=== PATIENT | male | born 1950 | race Caucasian/White ===

== ENCOUNTER 2023-08-24 08:37 | Inpatient (IN) ==
--- NOTE | 2023-08-09 11:02 | Anesthesiology Consultation ---
Date of Service August 09, 2023 Assessment & Plan (1) Encounter for pre-operative examination: - Check coags AM DOS (Coumadin instructions per surgeon/prescriber) - Infectious disease screening: Per assessment on 08/09/23: No known infectious disease contacts or current infectious disease symptoms. No noted recent Covid positive test result. - S/P Insertion of spinal cord stimulator (12/06/22): Grade 2 view, MAC#4, ETT 7.5 at [facility] - Patient had [facility] ER evaluation 07/26/23- bleeding internal hemorrhoids (patient takes coumadin). Cecal region irregular thickening on imaging (recommend further evaluation to exclude mass lesion). PCP made aware of ER findings > referred to GI for colonoscopy/further evaluation. Patient scheduled for preop appt prior to surgery. Patient acceptable risk for surgery pending PCP preop evaluation (MARINA Combs, apt 08/10). Chart Review Chart Review: Patient NOT seen in Pre Admission Testing History Surgery Operation Date: 08/24/23 07:45 Proposed Procedures p L4-S1 Decompression and Fusion Spinal Cord Monitoring - Renny Dietz DO s Spinal Cord Stimulator Removal - Renny Dietz DO Height/Weight Height: 6 ft Weight: 74.843 kg Allergies Allergy/AdvReac Type Severity Reaction Status Date / Time niacin Allergy Severe Facial Verified 08/09/23 09:06 swelling Medications Home Medications Medication Instructions Recorded Confirmed Last Taken celecoxib 200 mg capsule (Celebrex) 200 mg PO QAM 10/21/19 08/09/23 12/01/22 07:00 multivitamin 1 tab PO QAM 10/21/19 08/09/23 12/01/22 07:00 warfarin 6 mg tablet 6 mg PO QAM 10/21/19 08/09/23 11/28/22 07:00 atorvastatin 80 mg tablet (Lipitor) 80 mg PO QAM 11/17/22 08/09/23 12/06/22 07:00 cyanocobalamin (vitamin B-12) 500 500 mcg PO QAM 11/17/22 08/09/23 12/01/22 07:00 mcg tablet (Vitamin B-12) levothyroxine 50 mcg tablet 50 mcg PO QAM 11/17/22 08/09/23 12/06/22 07:00 enoxaparin 80 mg/0.8 mL 70 mg subcut BID 12/06/22 08/09/23 12/05/22 08:00 subcutaneous syringe cholecalciferol (vitamin D3) 125 125 mcg PO QAM 08/09/23 08/09/23 Unknown mcg (5,000 unit) tablet (Vitamin D3) oxycodone 15 mg tablet 15 mg PO Q4H PRN Pain 08/09/23 08/09/23 Unknown Past Medical History Medical History Chronic back pain Deep vein thrombosis B/L LE post-op (2 years ago) Degenerative disc disease Hypothyroidism Internal hemorrhoids [facility] ER visit 07/26/23 Osteoarthritis PFO (patent foramen ovale) Taking coumadin Spinal cord stimulator status Patient was advised to bring remote Stroke Strokes x2 1982, approximately 20 years ago- with no significant current deficits Past Family History Family History Other No family history of adverse response to anesthesia Past Surgical History Surgical History Fusion of spine Lumbar History of carpal tunnel release Left History of cataract surgery R/L History of colonoscopy History of esophagogastroduodenoscopy (EGD) Hx of cervical spine surgery + hardware ("good ROM" per patient) Hx of hernia repair [facility] Hx of umbilical hernia repair Social History Smoking Status: Never smoker tobacco type: smokeless tobacco Do You Dip or Chew Tobacco: No Smoking End Date: stopped chewing tobacco 15 years ago Hx Alcohol Use: No Alcohol type: wine alcohol intake frequency: a few times a month Hx Substance Use: No substance use type: does not use Lab Results Anesthesia Preop Results Results Anesthesia Widget: WBC 7.45 K/ul (4.8-10.8) 08/07/23 Hgb 13.9 g/dl (14.0-18.0) L 08/07/23 Hct 42.2 % (42.0-52.0) 08/07/23 Plt 241 K/uL (130-400) 08/07/23 Na 139 mmol/L (136-145) 08/07/23 K 4.5 mmol/L (3.5-5.1) 08/07/23 Cl 103 mmol/L (98-107) 08/07/23 CO2 31 mmol/L (21-32) 08/07/23 BUN 21 mg/dl (6-23) 08/07/23 Creat 0.84 mg/dl (0.6-1.4) 08/07/23 Glucose Level 102 mg/dl (70-99(Fasting)) H 08/07/23 PT 23.2 Seconds (9.0-12.0) H 08/07/23 PTT 37 Seconds (21-31) H 08/07/23 INR 2.2 (0.9-1.1) H 08/07/23 Urine Color Dark Yellow 08/07/23 Urine Appearance Clear (Clear) 08/07/23 Urine pH 5.5 (4.5-7.5) 08/07/23 Urine Specific [place] 1.021 (1.000-1.030) 08/07/23 Urine Protein Negative (Negative) 08/07/23 Urine Glucose (UA) Negative (Negative) 08/07/23 Urine Ketones Trace (Negative) H 08/07/23 Urine Blood Negative (Negative) 08/07/23 Urine Nitrite Negative (Negative) 08/07/23 Urine Bilirubin Negative (Negative) 08/07/23 Urine Urobilinogen Negative (Negative) 08/07/23 Urine Leukocyte Esterase Negative (Negative) 08/07/23 Blood Type O Positive 08/07/23 Antibody Screen NEGATIVE 08/07/23 Testing Electrocardiogram Date: 08/07/23 NSR at 61bpm. "Normal ECG" Chest X-Ray Date: 08/07/23 FINDINGS: Spinal stimulator and ACDF are seen. The cardiomediastinal silhouette is normal. The lungs are clear. No evidence of pleural effusion or pneumothorax. IMPRESSION: No acute chest disease.
[2023-08-24] MEDS: LR 15ML/HR IV SCH (09:01)
[2023-08-24] MEDS: LR 60ML/HR IV SCH (09:19)
[2023-08-24] MEDS: CeleBREX 200 MG CAP PO SCH (09:19)
[2023-08-24] MEDS: ACETAMINOPHEN 500 MG TAB PO SCH (09:19)
[2023-08-24] MEDS: GABAPENTIN 300 MG CAP PO SCH (09:20)
[2023-08-24 09:48] LABS: Partial Thromboplastin Time 28 Seconds (21-31); Prothrombin Time 10.8 Seconds (9.0-12.0)
[2023-08-24] MEDS ORDERED: PROPOFOL IV EMULSION 10 MG/ML 20 ML VIAL IV ONE (09:59)
[2023-08-24] MEDS ORDERED: LIDOCAINE 2% 2 ML VIAL/AMP(20MG/ML) INFIL ONE (09:59)
[2023-08-24] MEDS ORDERED: DEXAMETHASONE SOD INJ 4 MG/ML VIAL ONE (09:59)
[2023-08-24] MEDS ORDERED: ONDANSETRON INJ 2 MG/ML 2 ML VIAL ONE (09:59)
[2023-08-24] MEDS ORDERED: MIDAZOLAM HCL 1 MG/ML 2ML VIAL ONE (09:59)
[2023-08-24] MEDS ORDERED: ROCURONIUM BROMIDE 10 MG/ML 5 ML VIAL IV ONE (09:59)
[2023-08-24] MEDS ORDERED: fentaNYL citrate PF 100 MCG/2 ML VIAL ONE (09:59)
--- NOTE | 2023-08-24 10:04 | History & Physical Bridge Note ---
Date of Service August 24, 2023 History & Physical Bridge Note I have examined the patient, reviewed the History & Physical and in the interval since the performance of the History & Physical I have noted the following changes of clinical significance: no changes noted
--- NOTE | 2023-08-24 10:05 | History & Physical Report ---
Date of Service August 24, 2023 Assessment & Plan (1) Neurogenic claudication due to lumbar spinal stenosis: Plan: L4-S1 decompression and fusion, spinal cord stimulator removal History of Present Illness Chief Complaint: Back and leg pain Primary Care Provider: Reinier Thomas MD This is a 72-year-old male presents with chronic persistent back and leg pain after failing course of nonoperative care is here for surgical invention. Allergies Allergy/AdvReac Type Severity Reaction Status Date / Time niacin Allergy Severe Facial Verified 08/24/23 09:01 swelling Home Medications Medication Instructions Recorded Confirmed Type celecoxib 200 mg capsule (Celebrex) 200 mg PO QAM 10/21/19 08/24/23 History multivitamin 1 tab PO QAM 10/21/19 08/24/23 History warfarin 6 mg tablet 6 mg PO QAM 10/21/19 08/24/23 History atorvastatin 80 mg tablet (Lipitor) 80 mg PO QAM 11/17/22 08/24/23 History cyanocobalamin (vitamin B-12) 500 500 mcg PO BID 11/17/22 08/24/23 History mcg tablet (Vitamin B-12) levothyroxine 50 mcg tablet 50 mcg PO QAM 11/17/22 08/24/23 History enoxaparin 80 mg/0.8 mL 70 mg subcut BID 12/06/22 08/24/23 History subcutaneous syringe cholecalciferol (vitamin D3) 125 125 mcg PO QAM 08/09/23 08/24/23 History mcg (5,000 unit) tablet (Vitamin D3) oxycodone 15 mg tablet 15 mg PO Q4H PRN Pain 08/09/23 08/24/23 History Past Med/Surg History Medical History Chronic back pain Deep vein thrombosis B/L LE post-op (2 years ago) Degenerative disc disease Hypothyroidism Internal hemorrhoids [facility] ER visit 07/26/23 Osteoarthritis PFO (patent foramen ovale) Taking coumadin Spinal cord stimulator status Patient was advised to bring remote Stroke Strokes x2 1982, approximately 20 years ago- with no significant current deficits Surgical History Fusion of spine Lumbar History of carpal tunnel release Left History of cataract surgery R/L History of colonoscopy History of esophagogastroduodenoscopy (EGD) Hx of cervical spine surgery + hardware ("good ROM" per patient) Hx of hernia repair [facility] Hx of umbilical hernia repair Family History Other No family history of adverse response to anesthesia Social History Smoking Status: Never smoker Tobacco Type: Smokeless Tobacco (Dip or Chew) Smoking End Date: stopped chewing tobacco 15 years ago; Second Hand Exposure: No; Do You Dip or Chew Tobacco: No; Tobacco Cessation Education Requested by Patient: No Hx Alcohol Use: No Hx Substance Use: No Preferred Language: Arabic 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
[2023-08-24] MEDS: ceFAZolin 2000MG 2,000 MG/15 ML SYR IV SCH ×2 (10:35→17:30)
[2023-08-24] MEDS ORDERED: ONDANSETRON INJ 2 MG/ML 2 ML VIAL IV PRN ×2 (11:00→15:27)
[2023-08-24] MEDS ORDERED: ePHEDrine sulfate 50 MG/ML AMP IV PRN (11:00)
[2023-08-24] MEDS ORDERED: PROMETHAZINE HCL 6.25 MG in SODIUM CHLORIDE 0.9% 50 ML IV PRN (11:00)
[2023-08-24] MEDS ORDERED: ATROPINE SULFATE 0.1 MG/ML 10ML SYR IV PRN (11:00)
[2023-08-24] MEDS: BUPIVACAINE/EPINEPHRINE 0.25% 1:200,000 30 ML VIAL ONE (11:05)
[2023-08-24] MEDS ORDERED: HYDROmorphone INJ 2 MG/ML SYR/VIAL ONE ×2 (11:43→12:14)
[2023-08-24] MEDS ORDERED: SUGAMMADEX SODIUM 200 MG/2 ML VIAL IV ONE (12:30)
[2023-08-24] MEDS: ceFAZolin 330 MG/ML 1 GM VIAL ONE (12:33)
[2023-08-24] MEDS: FLOSEAL HEMOSTATIC MATRIX 10ML TOP ONE (12:34)
[2023-08-24] MEDS ORDERED: SODIUM CHLORIDE 0.9% PF INJ 10 ML VIAL ONE (12:35)
--- NOTE | 2023-08-24 12:43 | Operative Report ---
Post Operative Report Pre & Post Diagnosis Operation Date: 08/24/23 09:55 Pre-Op Diagnosis: Lumbar spinal stenosis with neurogenic claudication Lumbar spondylolisthesis L4-5 Failed spinal cord stimulator Post-Op Diagnosis: Same I identified the patient and participated in the time-out.: Yes Procedure Operation Date: 08/24/23 09:55 Actual Procedures #1 revision decompression with bilateral medial facetectomies and foraminotomies L3-L4 L4-5. #2 posterior spinal fusion L4-5. #3 placement posterior instrumentation L4-5. #4 interbody fusion L4-L5. #5 placement of Spira 14 x 26 mm cage x 2 at L4-5. #6 removal of spinal cord stimulator leads and battery. #7 placement infuse collagen sponge, with Koros bone graft in the posterior lateral gutters and interbody space. Surgeon Renny Dietz, Surgical Supply Assistant Nano Yu Estimated Blood Loss 100 Findings Consistent with Post-Op Diagnosis Specimens None Indications This is a 72-year-old male presents above-mentioned diagnosis after failing course of nonoperative care is here for surgical invention. Description of Procedure Patient was met with identified informed consent obtained. Patient was then taken to the operative suite underwent patient placed in a prone position on the Felix table atop the Ash frame. All bony promises well-padded eyes inspected to ensure no external pressure placed upon them. This point the lumbar spine was prepped and draped in normal sterile fashion Sharp dissection with the assistance of Bovie cautery from down to and exposing the remaining lamina and transverse processes of L4-L5 bilaterally. I did explore the L5-S1 level and it was clearly fused with no evidence of motion. Then performed revision complete laminectomy of L4 including bilateral medial facetectomies and foraminotomies. There were bilateral facet cyst at this level that were also removed in her entirety. I also performed a partial laminectomy of L3 and bilateral medial facetectomies to address all lateral recess stenosis at this level as well. Pedicle screws were then placed at L4-5 bilaterally with assistance of fluoroscopy and appropriate sized giuseppe placed. By way the transforaminal approach on the right a discectomy of L4-L5 was performed endplates guided to subcortically bone and a 14 x 26 mm Spira cage filled with Koros bone graft tapped in position. Then proceeded to the left transforaminal region at L4-5 completed the discectomy endplates guided to subcortical bleeding bone and a second 14 x 26 mm Spira cage filled with Koros bone graft tapped in position. The rods then compressed locked into final position bilaterally. The transverse processes of L4-5 burred to subcortically bone. Infuse collagen sponge, with Koros was placed in the posterior lateral gutters. I then performed incision well at the L1-2 region down to the spinal cord stimulator anchors. They were released and removed without difficulty. I then opened the battery pocket along the right flank and remove the battery without difficulty. The incisions were then terence irrigated 15 round CARINE drain inserted at the L4-5 level and all incisions closed with subcutaneous Vicryl and 4 Monocryl for final closure. Steri-Strips sterile dressings placed. Patient waken taken to PACU stable condition. Please note spinal cord monitoring was utilized at the procedure no changes noted. Lastly Nano Yu was present at the entire surgery and while the patient positioning complex portion of the surgery and final skin closure. I attest to the content of the Intraoperative Record and any orders documented therein. Any exceptions are noted below.
[2023-08-24] MEDS: fentaNYL citrate PF 100 MCG/2 ML VIAL IV PRN (13:34)
[2023-08-24] MEDS ORDERED: HYDROmorphone INJ 0.5 MG/0.5 ML SYR IV PRN (14:17)
[2023-08-24] MEDS: HYDROmorphone INJ 2 MG/ML SYR/VIAL ONE (14:22)
--- NOTE | 2023-08-24 14:53 | Anesthesiology Progress Note ---
Date of Service August 24, 2023 Anesthesia Post Procedure Vital Signs Vital Signs: Temp Pulse Resp BP Pulse Ox O2 Del Method O2 Flow Rate 08/24/23 14:40 77 14 118/62 96 Room Air 3 08/24/23 14:30 75 16 125/77 95 Room Air 08/24/23 14:20 64 19 125/70 98 Room Air 3 08/24/23 14:10 67 18 145/72 H 98 Room Air 08/24/23 14:00 68 12 149/77 H 97 Room Air 08/24/23 13:50 63 14 134/70 95 Nasal Cannula 4 08/24/23 13:40 66 13 129/76 93 Room Air 08/24/23 13:30 79 14 134/65 96 Room Air 08/24/23 13:20 60 10 L 134/65 98 Room Air 08/24/23 13:10 63 12 143/75 H 98 Oxymask 6 08/24/23 13:00 36.0 C L 66 13 131/61 98 Oxymask 11 08/24/23 09:07 36.6 C 62 16 151/82 H 94 Room Air Pain Intensity Right Lower Buttock: Pain Intensity: 6 Transfer of Care Handoff Completed per policy Notes Mental Status: alert / awake / arousable Patient Amnestic to Procedure: Yes Nausea / Vomiting: adequately controlled Pain: adequately controlled Airway Patency, RR, SpO2: stable & adequate BP & HR: stable & adequate Hydration State: stable & adequate Anesthetic Complications: no major complications apparent
[2023-08-24] MEDS ORDERED: LORazepam 0.5 MG TAB PO PRN (15:27)
[2023-08-24] MEDS ORDERED: PROMETHAZINE HCL 12.5 MG in SODIUM CHLORIDE 0.9% 50 ML IV PRN (15:27)
[2023-08-24] MEDS ORDERED: LORazepam 0.5 MG in SYRINGE 0.25 ML IV PRN (15:27)
[2023-08-24] MEDS ORDERED: bisacodyL 10 MG SUPP PR PRN (15:27)
[2023-08-24] MEDS ORDERED: SOD PHOSPHATE/SOD BIPHOSPHATE ENEMA 132 ML BTL PR PRN (15:27)
[2023-08-24] MEDS ORDERED: DO NOT ADMINISTER FLU VACCINE PRN (15:27)
[2023-08-24] MEDS ORDERED: hydrOXYzine HCl 25 MG TAB PO PRN (15:27)
[2023-08-24] MEDS ORDERED: NALOXONE HCL 0.4 MG/1 ML VIAL/CARP IV PRN (15:27)
[2023-08-24] MEDS ORDERED: diphenhydrAMINE Capsule 25 MG CAP PO PRN (15:27)
[2023-08-24] MEDS ORDERED: ALUMINUM/MAGNESIUM SUSP 30 ML UDC PO PRN (15:27)
[2023-08-24] MEDS ORDERED: METOCLOPRAMIDE HCL INJ 5 MG/ML 2 ML VIAL IV PRN (15:27)
[2023-08-24] MEDS ORDERED: ACETAMINOPHEN 1,000 MG/100 ML VIAL IV PRN (15:27)
[2023-08-24] MEDS ORDERED: DO NOT ADMINISTER PNEUMOCOCCAL VACCINE PRN (15:27)
[2023-08-24] MEDS ORDERED: ONDANSETRON 4 MG OD TAB PO PRN (15:27)
[2023-08-24] MEDS: LACTATED RINGER'S 1,000 ML IV SCH (15:52)
[2023-08-24] MEDS: ACETAMINOPHEN 500 MG TAB PO PRN (15:55)
--- NOTE | 2023-08-24 16:39 | Fluoroscopy Report ---
FL lumbar spine 2-3V CLINICAL HISTORY: L4-S1 DECOMPRESSION AND FUSION TECHNIQUE: 2 views were obtained with the C-arm in the OR with the above procedure. Total fluoroscopy time was 21.2 seconds. Radiation dose was 14.20 mGy. Comparison: Comparison is made to CT abdomen pelvis 07/26/2023 FINDINGS/IMPRESSION: Intraoperative images were obtained of L4-S1 decompression and fusion. Please correlate with intraoperative fluoroscopy and operative report. ACT 112: Negative or not required by law. Electronically signed by: Jerson Hemphill M.D. 08/24/2023 4:38 PM
--- NOTE | 2023-08-24 17:10 | Anesthesiology Progress Note ---
Date of Service August 24, 2023 Anesthesia Post Procedure Vital Signs Vital Signs: Temp Pulse Resp BP Pulse Ox O2 Del Method O2 Flow Rate 08/24/23 17:01 36.6 C 84 16 111/61 92 Room Air 08/24/23 16:30 36.5 C 77 16 110/74 93 Room Air 08/24/23 15:57 36.3 C L 70 16 112/60 95 Nasal Cannula 2 08/24/23 15:23 Nasal Cannula 2 08/24/23 15:23 36.5 C 72 16 124/68 95 Room Air 2 08/24/23 14:50 67 14 126/72 96 Room Air 3 08/24/23 14:40 77 14 118/62 96 Room Air 3 08/24/23 14:30 75 16 125/77 95 Room Air 3 08/24/23 14:20 64 19 125/70 98 Room Air 3 08/24/23 14:10 67 18 145/72 H 98 Room Air 3 08/24/23 14:00 68 12 149/77 H 97 Room Air 3 08/24/23 13:50 63 14 134/70 95 Nasal Cannula 4 08/24/23 13:40 66 13 129/76 93 Room Air 08/24/23 13:30 79 14 134/65 96 Room Air 08/24/23 13:20 60 10 L 134/65 98 Room Air 08/24/23 13:10 63 12 143/75 H 98 Oxymask 6 08/24/23 13:00 36.0 C L 66 13 131/61 98 Oxymask 11 08/24/23 09:07 36.6 C 62 16 151/82 H 94 Room Air Pain Intensity Right Lower Buttock: Pain Intensity: 5 Back: Pain Intensity: 5 Transfer of Care Handoff Completed per policy Notes Mental Status: alert / awake / arousable and participated in evaluation Patient Amnestic to Procedure: Yes Nausea / Vomiting: adequately controlled Pain: adequately controlled Airway Patency, RR, SpO2: stable & adequate BP & HR: stable & adequate Hydration State: stable & adequate Anesthetic Complications: no major complications apparent and Pt Satisfied with anesthetic care
[2023-08-24] MEDS: HYDROmorphone INJ 0.5 MG/0.5 ML SYR IV PRN (17:26)
[2023-08-24] MEDS ORDERED: KETAMINE HCL INJ 50 MG/ML 10 ML VIAL ONE (17:29)
--- NOTE | 2023-08-24 19:26 | Hospitalist Consultation ---
Date of Consultation August 24, 2023 Assessment & Plan (1) Neurogenic claudication due to lumbar spinal stenosis: (2) Lumbar radiculopathy, chronic: S/P Lumbar decompression today Check CBC/BMP in AM Continue to hold off any anticoagulation for now Will follow up with Dr Dietz about when to resume. Pain control Defer activity to Primary Surgeon (3) History of CVA (cerebrovascular accident): (4) PFO (patent foramen ovale): Continue atorvastatin Warfarin on hold as above (5) Hypothyroidism: Continue levothyroxine I spent a total of 50 minutes coordinating, documenting and providing care for this patient excluding time spent in performance of separately billed services History of Present Illness Reason for Consultation: Post op medical management Requesting Physician: Dr Dietz Attending Physician: Renny Dietz, DO History of Present Illness 72 year old man with history of CVA x 2, has PFO on warfarin, s/p cervical spinal fusion, cervical discectomy, Hypothyroidism, lumbar spinal stenosis with neurogenic claudication who had lumbar decompression surgery by Dr Dietz today. Patient reports surgical site pain Had Low back radiculopathic pain radiating down the legs especially on the right prior to surgery Denied any nausea, vomiting Yet to pass flatus or have a BM Reports chronic mild abdominal pain, unchanged Denied any dysuria, freq, urgency Denied any cough though he stated he sometimes have cough with head movement due to spinal surgeries in the past Denied any other complaints on ROS Allergies Allergy/AdvReac Type Severity Reaction Status Date / Time niacin Allergy Severe Facial Verified 08/24/23 09:01 swelling Home Medications Medication Instructions Recorded Confirmed Type celecoxib 200 mg capsule (Celebrex) 200 mg PO QAM 10/21/19 08/24/23 History multivitamin 1 tab PO QAM 10/21/19 08/24/23 History warfarin 6 mg tablet 6 mg PO QAM 10/21/19 08/24/23 History atorvastatin 80 mg tablet (Lipitor) 80 mg PO QAM 11/17/22 08/24/23 History cyanocobalamin (vitamin B-12) 500 500 mcg PO BID 11/17/22 08/24/23 History mcg tablet (Vitamin B-12) levothyroxine 50 mcg tablet 50 mcg PO QAM 11/17/22 08/24/23 History enoxaparin 80 mg/0.8 mL 70 mg subcut BID 12/06/22 08/24/23 History subcutaneous syringe cholecalciferol (vitamin D3) 125 125 mcg PO QAM 08/09/23 08/24/23 History mcg (5,000 unit) tablet (Vitamin D3) oxycodone 15 mg tablet 15 mg PO Q4H PRN Pain 08/09/23 08/24/23 History Patient History Medical History (Updated 08/24/23 @ 19:25 by Susan Gomez MD) Internal hemorrhoids [facility] ER visit 07/26/23 Spinal cord stimulator status Patient was advised to bring remote PFO (patent foramen ovale) Taking coumadin Chronic back pain Degenerative disc disease Osteoarthritis Hypothyroidism Stroke Strokes x2 approximately 34 years ago- with no significant current deficits Deep vein thrombosis B/L LE post-op (2 years ago) Surgical History History of cataract surgery R/L History of carpal tunnel release Left Fusion of spine Lumbar Hx of umbilical hernia repair History of colonoscopy History of esophagogastroduodenoscopy (EGD) Hx of cervical spine surgery + hardware ("good ROM" per patient) Hx of hernia repair [facility] Family History Other No family history of adverse response to anesthesia Social History Smoking Status: Never smoker Tobacco Type: Smokeless Tobacco (Dip or Chew) Smoking End Date: stopped chewing tobacco 15 years ago; Second Hand Exposure: No; Do You Dip or Chew Tobacco: No; Tobacco Cessation Education Requested by Patient: No Hx Alcohol Use: No Hx Substance Use: No Preferred Language: German Communication Ability: Effective Clinical Resource Director Required: No Beliefs That Will Affect Care: None Current Living Situation: Spouse Other Information That Helps Us Care for You: No Feels Safe at Home: Yes Safety Concerns: Feels Safe At This Time Assistive Devices: None Physical Exam Constitutional: + well hydrated; no acute distress Eyes: PERRL, conjunctivae normal, anicteric sclerae ENMT: external ear and nose normal, oropharynx normal Respiratory: normal respiratory effort, lungs clear to auscultation Cardiovascular: Rate/Rhythm: regular rate and regular rhythm S1 S2 Gastrointestinal (Abdomen): normal bowel sounds, soft, nontender, no hepatosplenomegaly Musculoskeletal: Clean dressing over surgical site with drain in situ No pedal edema Neurologic: PERRL, EOMI, accommodation nl, no face palsy, no dysarthria Psychiatric: A+Ox3, euthymic affect Results & Data Results & Data Vital Signs (Past 12 Hours) Vital Signs Temp Pulse Resp BP Pulse Ox O2 Del Method O2 Flow Rate 08/24/23 17:30 36.6 C 84 18 110/48 L 91 Room Air 08/24/23 17:01 36.6 C 84 16 111/61 92 Room Air 08/24/23 16:30 36.5 C 77 16 110/74 93 Room Air 08/24/23 15:57 36.3 C L 70 16 112/60 95 Nasal Cannula 2 08/24/23 15:23 Nasal Cannula 2 08/24/23 15:23 36.5 C 72 16 124/68 95 Room Air 2 08/24/23 14:50 67 14 126/72 96 Room Air 3 08/24/23 14:40 77 14 118/62 96 Room Air 3 08/24/23 14:30 75 16 125/77 95 Room Air 3 08/24/23 14:20 64 19 125/70 98 Room Air 3 08/24/23 14:10 67 18 145/72 H 98 Room Air 3 08/24/23 14:00 68 12 149/77 H 97 Room Air 3 08/24/23 13:50 63 14 134/70 95 Nasal Cannula 4 08/24/23 13:40 66 13 129/76 93 Room Air 08/24/23 13:30 79 14 134/65 96 Room Air 08/24/23 13:20 60 10 L 134/65 98 Room Air 08/24/23 13:10 63 12 143/75 H 98 Oxymask 6 08/24/23 13:00 36.0 C L 66 13 131/61 98 Oxymask 11 08/24/23 09:07 36.6 C 62 16 151/82 H 94 Room Air
[2023-08-24] MEDS: oxyCODONE HCL IR 5 MG TAB (IMMEDIATE RELEASE) PO PRN (20:09)
[2023-08-24] MEDS: CYANOCOBALAMIN (B-12) 500 MCG TABLET PO SCH (20:10)
[2023-08-24] MEDS: DOCUSATE SODIUM/SENNA 50/8.6MG TAB PO SCH (20:10)
--- OUTSIDE RECORDS SUMMARY | 2023-08-24 22:20 | External Medical Summary | Summary of Care ---
Author Name Unknown Organization [facility] Address [address] [place] [address] Phone [phone] Care Team Providers Care Services Program Manager Name Role Phone Reinier Thomas DO Primary Care Provid er Reason for Visit * Reason Onset Date Comments Other 08/17/2023 Enoxaparin Sodiu m 80 MG/0.8ML Injection Solution Prefilled Syringe (Lovenox) FYI 08/17/2023 Encounter Details Date Type Department Care Team ([facility] st Contact Info) Description 08/17/2023 Telephone Family [address] [phone] Reinier Thomas DO [address] [place] [id number] Other (Enoxaparin Sodium 80 MG/0.8ML Injec... Allergies Active Allergy Reactions Criticality Noted Date Comments Niacin 07/07/2005 documented as of this encounter (statuses as of 08/22/2023) Medications Medication Sig Dispensed Refills Start Date End Date Status acetaminophen (TYLENOL) 325 MG Tablet Take 2 Tabs by mouth every 4 hours as needed for Pain. 60 Tab 0 9 Active Multivitamin Adult Oral Tablet Take 1 Tab by mouth daily. 0 0 Active Vitamin C 500 MG Oral Tablet (Ascorbic Acid) Take 1 Tablet by mouth in the morning. 0 Active Black Elderberry(Contreras-F lower) 575 MG Oral Capsule Take by mouth 1 Tablet daily . 0 Active Warfarin Sodium 6 MG Oral Tablet (Coumadin) TAKE ONE TABLET BY MOUTH EVERY MORNING OR DIRECTED BY THE ANTICOAG CLINIC. 90 Tablet 2 3 Active oxyCODONE HCl 15 MG Oral Tablet (Roxicodone)Indica tions:Spinal stenosis of lumbar region with neurogenic claudication,Chron ic pain syndrome,Osteoarth ritis of spine with radiculopathy, lumbar region Take 1 Tablet by mouth every 4 hours as needed for Pain, Moderate or Pain, Severe. 180 Tablet 0 4 Active Celecoxib 200 MG Oral Capsule (CeleBREX)Indicati ons:Generalized osteoarthritis TAKE 1 CAPSULE BY MOUTH EVERY DAY 90 Capsule 1 4 Active Atorvastatin Calcium 80 MG Oral Tablet (Lipitor)Indicatio ns:History of CVA (cerebrovascular accident),Dyslipid emia, goal LDL below 70 TAKE 1 TABLET BY MOUTH EVERY DAY IN THE MORNING 90 Tablet 1 4 Active Levothyroxine Sodium 50 MCG Oral Tablet (Levoxyl)Indicatio ns:Acquired hypothyroidism TAKE 1 TABLET BY MOUTH IN THE MORNING 30 MINUTES BEFORE BREAKFAST OR OTHER MEDICATIONS 90 Tablet 1 4 Active Enoxaparin Sodium 80 MG/0.8ML Injection Solution Prefilled Syringe (Lovenox)Indicatio ns:Cerebrovascular disease, arteriosclerotic, post-stroke,PFO (patent foramen ovale) Inject full contents of one syringe every 12 hours as instructed by anticoagulation clinic 8 mL 0 4 Active Enoxaparin Sodium 80 MG/0.8ML Injection Solution Prefilled Syringe (Lovenox)Indicatio ns:Cerebrovascular disease, arteriosclerotic, post-stroke,PFO (patent foramen ovale) Inject full contents of one syringe ever 12 hours as instructed by anticoagulation clinic 8 mL 0 4 08/17/19 24 Discontinu ed(Refill) documented as of this encounter (statuses as of 08/22/2023) Active Problems Problem Noted Date Diagnosed Date Osteoarthritis of spine with radiculopathy, lumb ar region 07/12/2022 Acquired hypothyroidism 10/30/2020 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 BPH without obstruction/lower urinary tract symp toms 07/21/2003 GENERAL OSTEOARTHROSIS 04/19/2001 COMMON MIGRAINE WITHOUT MENTION OF INTRACTABLE M IGRAINE 01/25/2001 documented as of this encounter (statuses as of 08/22/2023) Resolved Problems Problem Noted Date Diagnosed Date Resolved Date History of CVA (cerebrovascular accident) 03/19/2018 03/29/2021 Prediabetes 06/27/2017 07/31/2017 Overview: Per Prediabetes protocol #1 Dyslipidemia, goal LDL below 100 06/02/2010 12/19/2019 skilled nursing current use of ant icoagulant therapy 11/28/2004 03/29/2021 Overview: ICD-10 update of inactive term Anticoagulation management encounter 11/09/2001 04/09/2018 Dyslipidemia, goal to be determined 01/25/2001 06/04/2009 Special screening for malign ant neoplasms, colon 01/25/2001 07/23/2008 Overview: Resolved per Screening Diagnosis Protocol #6 CVA 01/25/2001 08/28/2008 Overview: Modified per CVA protocol #8 Hemorrhagic disorder due to intrinsic circulating anticoagulants 09/05/2000 10/06/2011 Overview: ICD-10 update of inactive term documented as of this encounter (statuses as of 08/22/2023) Immunizations Name Administration Dates Next Due COVID-19 mRNA, LNP-s, No Pre serve, 2-Dose Series (Moderna) 07/23/2020,06/24/2020 Influenza, Whole Virus 03/02/1999,1997,02/19/1997,02/26 Pneumococcal Conjugate Vacc, 13 Valent (Prevnar) 11/18/2015 Pneumococcal Polysaccharide PPV23 (Pneumovax) 10/30/2017,03/08/2005,02/27/1996 Seasonal Influenza, PF, 6 M & above, IM , (FluLaval or Fluzone) 03/14/2018,03/17/2017 Seasonal Influenza, Quadriva lent, No Preserve, IM 03/16/2016,03/12/2015 Seasonal Influenza, Split, I IV3, With Preserve, Inj 02/06/2014,02/26/2013,02/02/2012,02/15,09/30/2010(Deferred: Patient Refused),02/03/2010,02/04/2009, 008,02/22/2007,03/09/2006,03/08/2005,1 ,02/18/2003,04/19/2001 Seasonal Influenza, Trivalen t, Adjuvanted, 65+ yrs 02/20/2019 TD - Tetanus/Diptheria (ADULT) 02/08/2005 TDAP (age 11 and older)(Adacel) 06/07/2011 documented as of this encounter Social History Tobacco Use Types Packs/Day Years Used Date Smoking Tobacco: Never Smokeless Tobacco: Former Chew Comments:chewed for 25 years Alcohol Use Standard Drinks/Week Comments No 0 (1 standard drink = 0.6 oz pur e alcohol) PHQ-2 Answer Date Recorded PHQ Adult Total Score 0 01/11/2023 Hunger Vital Sign Answer Date Recorded Within the past 12 months, y ou worried that your food would run out before you got the money to buy more. Never true 06/30/19 21 Within the past 12 months, t he food you bought just didn't last and you didn't have money to get more. Never true 06/30/2020 Sex and Gender Information Value Date Recorded Sex Assigned at Male 08/14/2018 11:15 AM EDT Gender Identity Male 08/14/2018 11:15 AM EDT Sexual Orientation Straight 08/14/2018 11 :15 AM EDT Job Start Date Occupation Industry Not on file Not on file Not on file documented as of this encounter Functional Status Functional Status Response Date of Assess ment Are you deaf or do you have serious difficulty h earing? No 03/19/2018 Are you blind or do you have serious difficulty seeing, even when wearing glasses? No 03/19/2018 Do you have serious difficul ty walking or climbing stairs? (5 years old or older) No 03/19/2018 Do you have difficulty dress ing or bathing? (5 years old or older) No 03/19/2018 Because of a physical, menta l, or emotional condition, do you have difficulty doing errands alone such as visiting a doctor s office or shopping? (15 years old or older) No 03/19/20 18 Cognitive Status Response Date of Assessm ent Because of a physical, menta l, or emotional condition, do you have serious difficulty concentrating, remembering, or making decisions? (5 years old or older) No 03/19/2018 documented as of this encounter Miscellaneous Notes * Telephone Encounter - Mona Melendez RPh - 08/22/2023 7:56 AM EDT Returned call to patient's daughter and advised that only 10 shots are needed. Disregard second script for lovenox. Mona Melendez, James, BCACP Clinical Pharmacist Medication Therapy Disease Management 08/22/2023, 7:58 AM * Telephone Encounter - Padma Thompson PHARM Tech - 08/21/2023 5:05 PM EDT Daughter calling for clarification as pt is calling him frantic in regards to another prescription for the lovenox and another $100 co pay. He picked up the prescription on 08/17/23 and paid the $100 dollars. Pharmacy has that it was never picked up. He then got another notification 08/11/23 that rx was picked up. Pt has 10 pens already, Aurea asking if he is needing the additional 10 pens that were sent on 08/17/23 Please advise. Thank You, Padma Thompson [facility] Optics Manufacturing Technician III Centralized Clinical Pharmacy Services (CCPS) (Formerly Telepharmacy) 08/21/2023, 5:15 PM * Telephone Encounter - Lisa Gillespie OSA - 08/21/2023 4:58 PM EDT Daughter following up on script instructions, [facility] also says they have two scripts (one with one hundred dollar co-pay) and is seeking clarification. Connected to pharmacy team. Call back #[phone] * Telephone Encounter - Mona Melendez [facility] - 08/18/2023 1:38 PM EDT Messaged [facility] Pharmacist TEAMs Chat. Was informed that patient had a paid claim on the lovenox and it was picked up a few days ago. Discovered that it was the patient that tried to verbally submit a tiering exception, which got denied due to patient not trying/failing heparin. Patient Phone Numbers Spoke to patient and discussed. Copay is $100, which is not ideal, but unavoidable. No further actions necessary at this time. Mona Melendez, PharmD, BCACP Clinical Pharmacist Medication Therapy Disease Management 08/18/2023, 1:40 PM * Telephone Encounter - Marci Oshea [facility] - 08/18/2023 12:25 PM EDT Patients insurance would like to inform the office that Enoxaparin is denied because: Do not see medical record documentation of failure on or intolerance to at least one (1) additionalpreferred formulary alternative (at least one from Tier 2), one of which must be from the same pharmacologic class if applicable OR Do not see medical record documentation that the preferred formulary alternatives for the treatmentof the member's condition would have adverse effects AND Your request for a tiering exception has been denied. The requested medication will continue to be covered for the enrollee at the tier listed in the formulary. Patient : 1.heparin sodium (porcine) (1000 unit/ml solution, 5000 unit/ml solution, 23321 unit/ml solution, 62507 unit/ml solution) They will fax this info to the office, please review and resubmit if appropriate. Thank you, Marci Oshea [facility] Incinerator Plant Supervisor Vp Respiratory Centralized Clinical Pharmacy Services (CCPS) (Formerly Telepharmacy) 08/18/2023,12:25 PM * Telephone Encounter - Dianna Pereyra CPhT - 08/18/2023 9:43 AM EDT Patients insurance would like to inform the office that Enoxaprin is denied because needs to try one formulary alternative. They will fax this info to the office, please review and resubmit if appropriate. Thank you, Dianna Pereyra CPhT Optics Manufacturing Technician Centralized Clinical Pharmacy Services (CCPS)(formerly telepharmacy) 08/18/2023,9:43 AM * Telephone Encounter - Mona Melendez [facility] - 08/18/2023 8:09 AM EDT Returned call to Christophe. Discussed the need for lovenox bridge, and that patient is otherwise successfully anticoagulated onwarfarin, but needs to hold it for 5 days for his upcoming procedure. Discussed his high clot risk,and that the lovenox bridge is necessary for him. Informed Christophe that she may [employer] TEAMS me during the day today if that is easier to communicate, as I do not have a direct line. Mona Melendez, PharmYfn, BCACP Clinical Pharmacist Medication Therapy Disease Management 08/18/2023, 8:10 AM * Telephone Encounter - Padma Thompson PHARM Tech - 08/17/2023 5:06 PM EDT Christophe calling as her [facility] have even more questions regarding the prior auth on the lovenox. Do not see medical record documentation of failure on or intolerance to at least two preferred formulary alternatives (at least one from Tier 2), one of which must be from the same pharmacologic class if applicable OR Do not see medical record documentation that the preferred formulary alternatives for the treatmentof the member's condition would have adverse effects AND Your request for a tiering exception has been denied. The requested medication will continue to be covered for the enrollee at the tier listed in the formulary. Formulary Alternatives: heparin sodium (porcine) (1000 unit/ml solution, 5000 unit/ml solution, 25252 unit/ml solution, 10203 unit/ml solution), warfarin or jantoven tablet Please call Christophe [phone], as it is needed back by 9:30 oon 08/18/23 Thank You, Padma Thompson [facility] Optics Manufacturing Technician III Centralized Clinical Pharmacy Services (CCPS) (Formerly Telepharmacy) 08/17/2023, 5:07 PM * Telephone Encounter - Mona Melendez [facility] - 08/17/2023 4:11 PM EDT Returned call to Christophe and reviewed that it should be for the generic lovenox (enoxaparin). Mona Melendez, PharmD, [facility] Clinical Pharmacist Medication Therapy Disease Management 08/17/2023, 4:12 PM * Telephone Encounter - Emelina Rankin patient registration specialist - 08/17/2023 4:00 PM EDT Christophe calling from [facility]. They need clarification on if Enoxaparin Sodium 80 MG/0.8ML Injection Solution Prefilled Syringe (Lovenox) is brand preferred or if it's to be generic. Please return her call at [phone]. EOC#: [id number] Thank you, Emelina Rankin, Incinerator Plant Supervisor Centralized Clinical Pharmacy Services (CCPS) (Formerly Telepharmacy) 08/17/2023,4:03 PM * Telephone Encounter - Mona Melendez RPh - 08/17/2023 2:33 PM EDT Returned call and spoke to [place] to further discuss. Patient's dose should be 80 mg (weight based dosing of 1mg/kg). Discussed that it is for a lovenox bridge and patient is to only receive 10 syringes. Mona Melendez, PharmD, BCACP Clinical Pharmacist Medication Therapy Disease Management 08/17/2023, 2:47 PM * Telephone Encounter - Marce Blake patient registration specialist - 08/17/2023 1:57 PM EDT [place] from [facility] calling to advise Verbal info given states Lovenox 70mg, but this med only comes in40,60 and 80mg syringes. Please advise of correct dosing by calling [facility] at [phone] Thanks, Marce Blake Optics Manufacturing Technician III Centralized Clinical Pharmacy Services (CCPS) 08/17/2023,1:57 PM * Telephone Encounter - Gaviota Ortega CPhT - 08/17/2023 1:30 PM EDT [facility] calling in with medication questions regarding Enoxaparin Sodium 80 MG/0.8ML Injection SolutionPrefilled Syringe (Lovenox). Pt is being seen by [facility]. Transferred [facility] . Thank you, Gaviota Ortega Incinerator Plant Supervisor nataliia Telepharmacy 08/17/2023, 1:31 PM documented in this encounter Plan of Treatment Upcoming Encounters Date Type Department Care Team (Late st Contact Info) Description 09/07/2023 9:50 AM EDT Anticoagulation Pharmacy, [place] [address] [place] [address] [place] [address] [place] [address] 10/18/2023 1:40 PM EDT Office Visit Family Practice [facility] [address] [place] [phone] Reinier Thomas DO [address] [place] [address] 11/15/2023 10:30 AM EDT Office Visit Orthopaedics, [facility] [address] [place] [address] Alexei Naylor PA-C [address] [place] [address] 12/12/2023 1:40 PM EDT Office Visit Dermatology [facility] [address] [place] [phone] Osmin Byrd PA-C [address], [place] [phone] Health Maintenance Due Date Last Done Comments Cologuard 1993 Fecal Occult Blood Test 1993 Sigmoidoscopy 1993 Zoster Vaccines (1 of 2) 1998 DTaP,Tdap,and Td Vaccines (2 - Td or Tdap) 06/07/2021 06/07/2011, 02/08/2005 Colonoscopy 11/03/2021 11/04/2011, 10/14, 02/20/2006 Colorectal Cancer Screening 11/03/2021 COVID-19 Vaccine ( - season) 2023 07/23/2020, 06/24/2020 Depression Screening 01/12/2024 01/11/2023 TSH 01/13/2024 01/12/2023, 06/16, 03/29/2021, Additional history exists Influenza Vaccine (FLU shot) (Season Ended) 2024 02/20/2019, 03/14/2018, 03/17/2017, Additional history exists Pneumococcal Vaccine: 65+ Years Completed 10/30/2017, 11/18/2015, 03/08/2005, Additional history exists GARDASIL-HPV IMMUNIZATION SERIES Aged Out No longer eligible based on patient's age to complete this topic Hepatitis B Aged Out No longer eligi ble based on patient's age to complete this topic MENINGOCOCCAL (MENACTRA/MENVEO) Aged Out No longer eligible based on patient's age to complete this topic documented as of this encounter Medical Devices Implanted Type Area Aircraft Stress Analyst Device Identifier Shelf Expiration Date Model / Serial / Lot Graft Cervical 6x8 [id number] - [id number] - [id number] Implanted:Qt y: 1 on 03/19/2018 by Ubaldo Johnson MD at [place] [facility] Tissue - Human N/A: Spine Cervical L[employer]ET 08/01/2022 [id number] / [id number] / [id number] Graft Cervical 6x8 [id number] - [id number] - [id number] Implanted:Qt y: 1 on 03/19/2018 by Ubaldo Johnson MD at OR [facility] Tissue - Human N/A: Spine Cervical LIFENET 04/19/2022 [id number] / [id number] / [id number] Plate Cerv 2 Lev 34mm Std - [id number] Implanted:Qt y: 1 on 03/19/2018 by Ubaldo Johnson MD at OR [facility] N/A: Spine Cervical [employer] [id number] / / Description:from set Screw St Efrain Slf Drl 4.0x14mm - [id number] Implanted:Qt y: 3 on 03/19/2018 by Ubaldo Johnson MD at OR [facility] N/A: Spine Cervical [employer] [id number] / / Description:from set Screw St Efrain Slf Drl 4.0x16mm - [id number] Implanted:Qt y: 3 on 03/19/2018 by Ubaldo Johnson MD at OR [facility] N/A: Spine Cervical [employer] [id number] / / Description:from set Mesh Perfix Plug Lg [id number] - [id number] Implanted:Qt y: 1 on 02/15/2019 by Josué Kelley MD at OR [facility] N/A: Naz CAMACHO BARD : DAVOL [id number] 03/11/2023 [id number] / / [id number] Lead Kit Trial [id number] 50cm - [id number] - [id number] Implanted:Qt y: 1 on 11/02/2022 by Franklin Olmos DO at OR [facility] N/A: Back Bioaxial : PAIN MGMT 08/05/2024 [id number] / [id number] / [id number] documented as of this encounter Visit Diagnoses Diagnosis CEREBROVASCULAR DZ, POST-STROKE Cerebral atherosclerosis PFO (patent foramen ovale) Ostium secundum type atrial septal defect documented in this encounter Advance Directives Latest Code Status on File Code Status Date Activated Date Inactivated Comments Full Code 02/15/2019 8:49 AM 02/15/2019 6:39 PM Question Answer Comments Discussion of Advance Direct michelle occurred with: Not Discussed Code Status History Code Status Date Activated Date Inactivated Comments Full Code 03/19/2018 8:19 AM 03/20/2018 6:03 PM Question Answer Comments Discussion of Advance Direct michelle occurred with: Not Discussed Care Teams Services Program Manager Relationship Specialty Start Date End Date Reinier Thomas DO [address] [place] [id number] PCP - General Internal Medicine 03/17/21 documented as of this encounter
--- OUTSIDE RECORDS SUMMARY | 2023-08-24 22:20 | External Medical Summary | Summary of Care ---
Author Name Unknown Organization [facility] Address [address] [place] [address] Phone [phone] Care Team Providers Care Aircraft Structural Design Engineer Name Role Phone Reinier Thomas DO Primary Care Provid er Reason for Visit * Reason Onset Date Comments Other 08/17/2023 Enoxaparin Sodiu m 80 MG/0.8ML Injection Solution Prefilled Syringe (Lovenox) FYI 08/17/2023 Encounter Details Date Type Department Care Team ([facility] st Contact Info) Description 08/17/2023 Telephone Family [address] [address] Reinier Thomas DO [address] [place] [address] Other (Enoxaparin Sodium 80 MG/0.8ML Injec... Allergies Active Allergy Reactions Criticality Noted Date Comments Niacin 07/07/2005 documented as of this encounter (statuses as of 08/21/2023) Medications Medication Sig Dispensed Refills Start Date [...] as of this encounter (statuses as of 08/21/2023) Active Problems Problem Noted Date Diagnosed Date [...] as of this encounter (statuses as of 08/21/2023) Resolved Problems Problem Noted Date Diagnosed Date Resolved Date History of CVA (cerebrovascular accident) 03/19/2018 03/29/2021 Prediabetes 06/27/2017 07/31/2017 Overview: Per Prediabetes protocol #1 Dyslipidemia, goal LDL below 100 06/02/2010 12/19/2019 nursing home current use of ant icoagulant therapy 11/28/2004 [...] as of this encounter (statuses as of 08/21/2023) Immunizations Name Administration Dates Next Due COVID-19 [...] encounter Miscellaneous Notes * Telephone Encounter - Padma Thompson PHARM [...] 08/17/23 Please advise. Thank You, Padma Thompson [facility] Supervisor [employer] III Centralized Clinical Pharmacy Services (CCPS) (Formerly Telepharmacy) 08/21/2023, 5:15 PM * Telephone Encounter - Lisa Gillespie OSA - 08/21/2023 4:58 PM EDT Daughter following up on script instructions, [facility] also says they have two scripts (one with one hundred dollar co-pay) and is seeking clarification. Connected to pharmacy team. Call back #[phone] * Telephone Encounter - Mona Melendez RP - 08/18/2023 1:38 PM EDT Messaged [facility] Pharmacist TEAMs Chat. Was informed that patient [...] necessary at this time. Mona Melendez, PharmD, [facility] Clinical Pharmacist Medication Therapy Disease Management 08/18/2023, 1:40 PM * Telephone Encounter - Marci Oshea CPhT - 08/18/2023 12:25 PM EDT Patients insurance [...] (porcine) (1000 unit/ml solution, 5000 unit/ml solution, 36785 unit/ml solution, 81975 unit/ml solution) They will fax this info to the office, please review and resubmit if appropriate. Thank you, Marci Oshea CPhT Reo Asset Manager Ct Mri Technologist Centralized Clinical Pharmacy Services (CCPS) (Formerly Telepharmacy) 08/18/2023,12:25 PM * Telephone Encounter - Dianna Pereyra CPhT - 08/18/2023 9:43 AM EDT Patients insurance would like to inform the office that Enoxaprin is denied because needs to try one formulary alternative. They will fax this info to the office, please review and resubmit if appropriate. Thank you, Dianna Pereyra CPhT Supervisor [employer] Centralized Clinical Pharmacy Services (CCPS)(formerly telepharmacy) 08/18/2023,9:43 AM * Telephone Encounter - Mona Melendez RP - 08/18/2023 8:09 AM EDT Returned call [...] not have a direct line. Mona Melendez, James, BCACP Clinical Pharmacist Medication Therapy Disease Management 08/18/2023, 8:10 AM * Telephone Encounter - Padma Thompson PHARM Tech - 08/17/2023 5:06 PM EDT Christophe calling as her [facility] have even more questions regarding the prior [...] (porcine) (1000 unit/ml solution, 5000 unit/ml solution, 05038 unit/ml solution, 79055 unit/ml solution), warfarin or jantoven tablet Please call Christophe [phone], as it is needed back by 9:30 oon 08/18/23 Thank You, Padma Thompson [facility] Supervisor [employer] III [facility] Pharm[facility] 08/17/2023, 5:07 PM * Telephone Encounter - Mona Melendez [facility] - 08/17/2023 4:11 PM EDT Returned call to Christophe and reviewed that it should be for the generic lovenox (enoxaparin). Mona Melendez PharmD, [facility] Clinical Pharmacist Medication Therapy Disease Management 08/17/2023, 4:12 PM * Telephone Encounter - Emelina Rankin PHARM Tech - 08/17/2023 4:00 PM EDT Christophe calling from [facility]. They need clarification on if Enoxaparin Sodium 80 MG/0.8ML Injection Solution Prefilled Syringe (Lovenox) is brand preferred or if it's to be generic. Please return her call at [phone]. EOC#: [id number] Thank you, Emelina Rankin, Reo Asset Manager [facility] 08/17/2023,4:03 PM * Telephone Encounter - Mona Melendez RP - 08/17/2023 2:33 PM EDT Returned call and spoke to [place] to further discuss. Patient's dose should be 80 mg (weight based dosing of 1mg/kg). Discussed that it is for a lovenox bridge and patient is to only receive 10 syringes. Mona Melendez, PharmD, BCACP Clinical Pharmacist Medication Therapy Disease Management 08/17/2023, 2:47 PM * Telephone Encounter - Marce Blake PHARM Tech - 08/17/2023 1:57 PM EDT [place] from [facility] calling to advise Verbal info given states Lovenox 70mg, but this med only comes in40,60 and 80mg syringes. Please advise of correct dosing by calling [facility] at [phone] Thanks, Marce Blake Supervisor [employer] Centralized Clinical Pharmacy Services (CCPS) 08/17/2023,1:57 PM * Telephone Encounter - Gaviota Ortega CPhT - 08/17/2023 1:30 PM EDT [facility] calling in with medication questions regarding Enoxaparin Sodium 80 MG/0.8ML Injection SolutionPrefilled Syringe (Lovenox). Pt is being seen by [facility] Clinic. Transferred [facility] . Thank you, Gaviota Ortega Reo Asset Manager [facility] 08/17/2023, 1:31 PM documented in this encounter Plan of Treatment Upcoming Encounters Date Type Department Care Team (Late st Contact Info) Description 09/07/2023 9:50 AM EDT Anticoagulation Pharmacy, [place] [address] [facility] [place] [address] [place] [facility] [address] [place] [address] 10/18/2023 1:40 PM EDT Office Visit [address] [address] Reinier Thomas, [address] [place] [address] 11/15/2023 10:30 AM EDT Office Visit Orthopaedics, [facility] [address] [place] [address] Alexei Naylor PA-C [address] [place], [place] [phone] 12/12/2023 1:40 PM EDT Office Visit Dermatology [facility] [address] [place] [phone] Osmin Byrd PA-C [address] [place], [place] [phone] Health Maintenance Due Date Last Done Comments Cologuard 1993 Fecal Occult Blood Test 1993 Sigmoidoscopy 1993 Zoster Vaccines (1 of 2) 1998 DTaP,Tdap,and Td Vaccines (2 - Td or Tdap) 06/07/2021 06/07/2011, 02/08/2005 Colonoscopy 11/03/2021 11/04/2011, 10/14, 02/20/2006 Colorectal Cancer Screening 11/03/2021 COVID-19 Vaccine ( season) 2023 07/23/2020, 06/24/2020 Depression Screening 01/12/2024 [...] this encounter Medical Devices Implanted Type Area Orthopedic Specialist Device Identifier Shelf Expiration Date Model / Serial / Lot Graft Cervical 6x8 [id number] - [id number] - [id number] Implanted:Qt y: 1 on 03/19/2018 by Ubaldo Johnson MD at OR [facility] Tissue - Human N/A: Spine Cervical L[employer]ET 08/01/2022 [id number] / [id number] / [id number] Graft Cervical 6x8 [id number] - [id number] - [id number] Implanted:Qt y: 1 on 03/19/2018 by Ubaldo Johnson MD at OR [facility] Tissue - Human N/A: Spine Cervical LIFENET 04/19/2022 [id number] / [id number] / [id number] Plate Cerv 2 Lev 34mm Std - [id number] Implanted:Qt y: 1 on 03/19/2018 by Ubaldo Johnson MD at OR [facility] N/A: Spine Cervical [employer] [id number] / / Description:from set Screw St Efrain Slf Drl 4.0x14mm - [id number] Implanted:Qt y: 3 on 03/19/2018 by Ubaldo Johnson MD at OR [facility] N/A: Spine Cervical [employer] [id number] / / Description:from set Screw St Efrain Slf Drl 4.0x16mm - [id number] Implanted:Qt y: 3 on 03/19/2018 by Ubaldo Johnson MD at OR [facility] N/A: Spine Cervical [employer] [id number] / / Description:from set Mesh Perfix Plug Lg [id number] - [id number] Implanted:Qt y: 1 on 02/15/2019 by Josué Kelley MD at OR [facility] N/A: Naz CAMACHO BARD : LUZ MARINA [id number] 03/11/2023 [id number] / / [id number] Lead Kit Trial [id number] 50cm - [id number] - [id number] Implanted:Qt y: 1 on 11/02/2022 by Franklin Olmos DO at OR [facility] N/A: Back [facility] : PAIN MGMT 08/05/2024 [id number] / [id number] / [id number] documented as of this encounter Visit Diagnoses [...] michelle occurred with: Not Discussed Care Teams Aircraft Structural Design Engineer Relationship Specialty Start Date End Date Reinier Thomas DO [address] [place] [address] PCP - General Internal Medicine 03/17/21 documented as of this encounter
--- OUTSIDE RECORDS SUMMARY | 2023-08-24 22:21 | External Medical Summary | Summary of Care ---
Author Name Unknown Organization [facility] Address [address] [place] [address] Phone [phone] Care Team Providers Care Hand Funnel Coater Name Role Phone Reinier Thomas DO Primary Care Provid er Reason for Visit * Reason Onset Date Comments Other 08/17/2023 Enoxaparin Sodiu m 80 MG/0.8ML Injection Solution Prefilled Syringe (Lovenox) Encounter Details Date Type Department Care Team ([facility] st Contact Info) Description 08/17/[address] [address] Reinier Thomas DO [address] [place] [address] Other (Enoxaparin Sodium 80 MG/0.8ML Injec... Allergies Active Allergy Reactions Criticality Noted Date Comments Niacin 07/07/2005 documented as of this encounter (statuses as of 08/18/2023) Medications Medication Sig Dispensed Refills Start Date [...] as of this encounter (statuses as of 08/18/2023) Active Problems Problem Noted Date Diagnosed Date [...] as of this encounter (statuses as of 08/18/2023) Resolved Problems Problem Noted Date Diagnosed Date Resolved Date History of CVA (cerebrovascular accident) 03/19/2018 03/29/2021 Prediabetes 06/27/2017 07/31/2017 Overview: Per Prediabetes protocol #1 Dyslipidemia, goal LDL below 100 06/02/2010 12/19/2019 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 Mona Melendez, TyeD, BCACP Clinical Pharmacist Medication Therapy Disease Management [...] (porcine) (1000 unit/ml solution, 5000 unit/ml solution, 41407 unit/ml solution, 56585 unit/ml solution), warfarin or jantoven tablet Please call Christophe [phone], as it is needed back by 9:30 oon 08/18/23 Thank You, Padma Thompson [facility] Hris Analyst III Centralized Clinical Pharmacy Services (CCPS) (Formerly Telepharmacy) 08/17/2023, 5:07 PM * Telephone Encounter - Mona Melendez RP - 08/17/2023 4:11 PM EDT Returned call to Christophe and reviewed that it should be for the generic lovenox (enoxaparin). Mona Melendez, PharmYfn, [facility] Clinical Pharmacist Medication Therapy Disease Management 08/17/2023, 4:12 PM * Telephone Encounter - Emelina Rankin PHARM Tech - 08/17/2023 4:00 PM EDT Christophe calling from [facility]. They need clarification on if Enoxaparin Sodium 80 MG/0.8ML Injection Solution Prefilled Syringe (Lovenox) is brand preferred or if it's to be generic. Please return her call at [phone]. EOC#: [id number] Thank you, Emelina Rankin, Geriatric Care Manager Centralized Clinical Pharmacy Services (CCPS) (Formerly Telepharmacy) 08/17/2023,4:03 PM * Telephone Encounter - Mona Melendez RPh - 08/17/2023 2:33 PM EDT Returned call and spoke to [place] to further discuss. Patient's dose should be 80 mg (weight based dosing of 1mg/kg). Discussed that it is for a lovenox bridge and patient is to only receive 10 syringes. Mona Melendez, PharmD, [facility] Clinical Pharmacist Medication Therapy Disease Management 08/17/2023, 2:47 PM * Telephone Encounter - Marce Blake retail leasing agent - 08/17/2023 1:57 PM EDT [place] from [facility] calling to advise Verbal info given states Lovenox 70mg, but this med only comes in40,60 and 80mg syringes. Please advise of correct dosing by calling [facility] at [phone] Thanks, Marce Blake Hris Analyst III Centralized Clinical Pharmacy Services (CCPS) 08/17/2023,1:57 PM * Telephone Encounter - Gaviota Ortega CPhT - 08/17/2023 1:30 PM EDT [facility] calling in with medication questions regarding Enoxaparin Sodium 80 MG/0.8ML Injection SolutionPrefilled Syringe (Lovenox). Pt is being seen by [facility] Clinic. Transferred P . Thank you, Gaviota Ortega Geriatric Care Manager [facility] [address] [facility] 08/17/2023, 1:31 PM documented in this encounter Plan of Treatment Upcoming Encounters Date Type Department Care Team (Late st Contact Info) Description 09/07/2023 9:50 AM EDT Anticoagulation Pharmacy, [place] [address] [address] [place], [facility] [address] [address] 10/18/2023 1:40 PM EDT Office Visit Family Practice [facility] [address] [place] [address] Reinier Thomas DO [address] [place] [address] 11/15/2023 10:30 AM EDT Office Visit Orthopaedics, [facility] [address] [place] [address] Alexei Naylor PA-C [address] [place] [address] 12/12/2023 1:40 PM EDT Office Visit Dermatology [facility] [address] [place] [address] Osmin Byrd PA-C [address] [place], [place] [phone] Health Maintenance Due Date Last Done Comments [...] this encounter Medical Devices Implanted Type Area Wheat Farmer Device Identifier Shelf Expiration Date Model / Serial / Lot Graft Cervical 6x8 Do5u-I02 - [id number] - [id number] Implanted:Qt y: 1 on 03/19/2018 by Ubaldo Johnson MD at OR [facility] Tissue - Human N/A: Spine Cervical LIFENET 08/01/2022 [id number] / [id number] / [id number] Graft Cervical 6x8 Xp3r-X94 - [id number] - [id number] Implanted:Qt y: 1 on 03/19/2018 by Ubaldo Johnson MD at OR [facility] Tissue - Human N/A: Spine Cervical LIFENET 04/19/2022 [id number] / [id number] / [id number] Plate Cerv 2 Lev 34mm Std - [id number] Implanted:Qt y: 1 on 03/19/2018 by Ubaldo Johnson MD at OR [facility] N/A: Spine Cervical [employer] [id number] / / Description:from set Screw St Efrain Slf Drl 4.0x14mm - [id number] Implanted:Qt y: 3 on 03/19/2018 by Ubaldo Johnson MD at OR [facility] N/A: Spine Cervical [employer] [id number] / / Description:from set Screw St Efrain Slf Drl 4.0x16mm - [id number] Implanted:Qt y: 3 on 03/19/2018 by Ubaldo Johnson MD at OR [facility] N/A: Spine Cervical [employer] [id number] / / Description:from set Mesh Perfix Plug Lg [id number] - [id number] Implanted:Qt y: 1 on 02/15/2019 by Josué Kelley MD at OR [facility] N/A: Naz ENRIQUEZ : LUZ MARINA [id number] 03/11/2023 [id number] 70 / / [id number] Lead Kit Trial [id number] 50cm - [id number] - [id number] Implanted:Qt y: 1 on 11/02/2022 by Franklin Olmos DO at OR [facility] N/A: Back [employer] : PAIN MGMT 08/05/2024 [id number] 650E0 / [id number] / [id number] documented as of this encounter Visit Diagnoses [...] michelle occurred with: Not Discussed Care Teams Hand Funnel Coater Relationship Specialty Start Date End Date Reinier Thomas DO [address] [place] [address] PCP - General Internal Medicine 03/17/21 documented as of this encounter
--- OUTSIDE RECORDS SUMMARY | 2023-08-24 22:21 | External Medical Summary | Summary of Care ---
Author Name Unknown Organization [facility] Address [address] [place] [address] Phone [phone] Care Team Providers Care Drawing Kiln Operator Name Role Phone Reinier Thomas DO Primary Care Provid er Reason for Visit * Reason Onset Date Comments Other 08/17/2023 Enoxaparin Sodiu m 80 MG/0.8ML Injection Solution Prefilled Syringe (Lovenox) Encounter Details Date Type Department Care Team ([facility] st Contact Info) Description 08/17/[address] [address] Reinier Thomas DO [address] [place] [address] Other (Enoxaparin Sodium 80 MG/0.8ML Injec... Allergies Active Allergy Reactions Criticality Noted Date Comments Niacin 07/07/2005 documented as of this encounter (statuses as of 08/17/2023) Medications Medication Sig Dispensed Refills Start Date [...] as of this encounter (statuses as of 08/17/2023) Active Problems Problem Noted Date Diagnosed Date [...] as of this encounter (statuses as of 08/17/2023) Resolved Problems Problem Noted Date Diagnosed Date Resolved Date History of CVA (cerebrovascular accident) 03/19/2018 03/29/2021 Prediabetes 06/27/2017 07/31/2017 Overview: Per Prediabetes protocol #1 Dyslipidemia, goal LDL below 100 06/02/2010 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 They need clarification on if Enoxaparin Sodium 80 MG/0.8ML Injection Solution Prefilled Syringe (Lovenox) is brand preferred or if it's to be generic. Please return her call at [phone]. EOC#: [id number] Thank you, Emelina Rankin, Computer Systems Hardware Analyst [facility] Pharmacy Services (CCPS) (Formerly Telepharmacy) 08/17/2023,4:03 PM * Telephone Encounter - Mona Melendez RPh - 08/17/2023 2:33 PM EDT Returned call and spoke to [place] to further discuss. Patient's dose should be 80 mg (weight based dosing of 1mg/kg). Discussed that it is for a lovenox bridge and patient is to only receive 10 syringes. Mona Melendez PharmYfn, BCACP Clinical Pharmacist Medication Therapy Disease Management 08/17/2023, 2:47 PM * Telephone Encounter - Marce Blake jackhammer operator - 08/17/2023 1:57 PM EDT [place] from [facility] calling to advise Verbal info given states Lovenox 70mg, but this med only comes in40,60 and 80mg syringes. Please advise of correct dosing by calling [facility] at [phone] Thanks, Marce Blake Seismic Interpreter III Centralized Clinical Pharmacy Services (CCPS) 08/17/2023,1:57 PM * Telephone Encounter - Gaviota Ortega CPhT - 08/17/2023 1:30 PM EDT [facility] calling in with medication questions regarding Enoxaparin Sodium 80 MG/0.8ML Injection SolutionPrefilled Syringe (Lovenox). Pt is being seen by [facility] Clinic. Transferred [facility] . Thank you, Gaviota Ortega Computer Systems Hardware Analyst [facility] 08/17/2023, 1:31 PM documented in this encounter Plan of Treatment Upcoming Encounters Date Type Department Care Team (Late st Contact Info) Description 09/07/2023 9:50 AM EDT Anticoagulation Pharmacy, [address] [address] [facility] [address] [place] [address] 10/18/2023 1:40 PM EDT Office Visit [facility] [address] [place] [phone] Reinier Thomas DO [address] [place] [address] 11/15/2023 10:30 AM EDT Office Visit Orthopaedics, [place] [address] [place] [address] Alexei Naylor PA-C [address] [place] [address] 12/12/2023 1:40 PM EDT Office Visit Dermatology [facility] [address] [place] [address] Osmin Byrd PA-C [address] [place], [place] [phone] Health Maintenance Due Date Last Done Comments [...] this encounter Medical Devices Implanted Type Area Registered Nurse Behavioral Health Device Identifier Shelf Expiration Date Model / Serial / Lot Graft Cervical 6x8 [id number] - [id number] - [id number] Implanted:Qt y: 1 on 03/19/2018 by Ubaldo Johnson MD [place] [facility] Tissue - Human N/A: Spine Cervical LIF[employer]ET 08/01/2022 [id number] / [id number] / [id number] Graft Cervical 6x8 [id number]-R57 - [id number] - [id number] Implanted:Qt y: 1 on 03/19/2018 by Ubaldo Johnson MD [place] [facility] Tissue - Human N/A: Spine Cervical LIFENET 04/19/2022 [id number] / [id number] / [id number] Plate Cerv 2 Lev 34mm Std - [id number] Implanted:Qt y: 1 on 03/19/2018 by Ubaldo Johnson MD at [place] [facility] N/A: Spine Cervical [employer] [id number] / / Description:from set Screw St Efrain Slf Drl 4.0x14mm - [id number] Implanted:Qt y: 3 on 03/19/2018 by Ubaldo Johnson MD [place] [facility] N/A: Spine Cervical [employer] [id number] / / Description:from set Screw St Efrain Slf Drl 4.0x16mm - [id number] Implanted:Qt y: 3 on 03/19/2018 by Ubaldo Johnson MD at [place] [facility] N/A: Spine Cervical [employer] [id number] / / Description:from set Mesh Perfix Plug Lg 0453261 - [id number] Implanted:Qt y: 1 on 02/15/2019 by Josué Kelley MD [place] [facility] N/A: Naz CAMACHO BARD : DAVOL [id number] 03/11/2023 [id number] 70 / / [id number] Lead Kit Trial [id number] 50cm - [id number] - [id number] Implanted:Qt y: 1 on 11/02/2022 by Franklin Olmos DO at OR [facility] N/A: Back [employer] : PAIN MGMT 08/05/2024 [id number] 650E0 / [id number] / [id number] documented as of this encounter Visit Diagnoses [...] michelle occurred with: Not Discussed Care Teams Drawing Kiln Operator Relationship Specialty Start Date End Date Reinier Thomas DO [address] [place] [address] PCP - General Internal Medicine 03/17/21 documented as of this encounter
--- OUTSIDE RECORDS SUMMARY | 2023-08-24 22:21 | External Medical Summary | Summary of Care ---
Author Name Unknown Organization [facility] Address [address] [place] [address] Phone [phone] Care Team Providers Care Outside Upholsterer Name Role Phone Reinier Thomas DO Primary Care Provid er Reason for Visit * Reason Onset Date Comments Other 08/17/2023 Enoxaparin Sodiu m 80 MG/0.8ML Injection Solution Prefilled Syringe (Lovenox) Encounter Details Date Type Department Care Team ([facility] st Contact Info) Description 08/17/[address] [phone] Reinier Thomas DO [address] [place] [address] Other (Enoxaparin Sodium 80 MG/0.8ML Injec... 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 They will fax this info to the office, please review and resubmit if appropriate. Thank you, Dianna Pereyra CPhT Cadd Technician Centralized Clinical Pharmacy Services (CCPS)(formerly telepharmacy) 08/18/2023,9:43 AM * Telephone Encounter - Mona Melendez [facility] - 08/18/2023 8:09 AM EDT Returned call [...] not have a direct line. Mona Melendez, PharmD, BCACP Clinical Pharmacist Medication Therapy Disease Management 08/18/2023, 8:10 AM * Telephone Encounter - Padma Thompson PHARM Tech - 08/17/2023 5:06 PM EDT Christophe calling as her [facility] have even more questions regarding the prior [...] (porcine) (1000 unit/ml solution, 5000 unit/ml solution, 39672 unit/ml solution, 53208 unit/ml solution), warfarin or jantoven tablet Please call Christophe [phone], as it is needed back by 9:30 oon 08/18/23 Thank You, Padma Thompson [facility] Cadd Technician III Centralized Clinical Pharmacy Services (CCPS) (Formerly Telepharmacy) 08/17/2023, 5:07 PM * Telephone Encounter - Mona Melendez RPh - 08/17/2023 4:11 PM EDT Returned call to Christophe and reviewed that it should be for the generic lovenox (enoxaparin). Mona Melendez PharmD, BCACP Clinical Pharmacist Medication Therapy Disease Management 08/17/2023, 4:12 PM * Telephone Encounter - Emelina Rankin PHARM Tech - 08/17/2023 4:00 PM EDT Christophe calling from [facility]. They need clarification on if Enoxaparin Sodium 80 MG/0.8ML Injection Solution Prefilled Syringe (Lovenox) is brand preferred or if it's to be generic. Please return her call at [phone]. EOC#: [id number] Thank you, Emelina Rankin, Forcer Maker [facility] Pharm[facility] Services (CCPS) ([facility]ly [email or web address]) 08/17/2023,4:03 PM * Telephone Encounter - Mona Melendez [facility] - 08/17/2023 2:33 PM EDT Returned call and spoke to [place] to further discuss. Patient's dose should be 80 mg (weight based dosing of 1mg/kg). Discussed that it is for a lovenox bridge and patient is to only receive 10 syringes. Mona Melendez, PharmD, [facility] Clinical Pharmacist Medication Therapy Disease Management 08/17/2023, 2:47 PM * Telephone Encounter - Marce Blake refrigerator glazier - 08/17/2023 1:57 PM EDT [place] from [facility] calling to advise Verbal info given states Lovenox 70mg, but this med only comes in40,60 and 80mg syringes. Please advise of correct dosing by calling [facility] at [phone] Thanks, Marce Blake Cadd Technician III Centralized Clinical Pharmacy Services (CCPS) 08/17/2023,1:57 PM * Telephone Encounter - Gaviota Ortega CPhT - 08/17/2023 1:30 PM EDT [facility] calling in with medication questions regarding Enoxaparin Sodium 80 MG/0.8ML Injection SolutionPrefilled Syringe (Lovenox). Pt is being seen by [facility]. Transferred [facility] . Thank you, Gaviota Ortega Forcer Maker [facility] 08/17/2023, 1:31 PM documented in this encounter Plan of Treatment Upcoming Encounters Date Type Department Care Team (Late st Contact Info) Description 09/07/2023 9:50 AM EDT Anticoagulation Pharmacy, [place] [address] [place] [address] [place] [facility] [address] [place] [address] 10/18/2023 1:40 PM EDT Office Visit Family Practice [facility] [address] [place] [phone] Reinier Thomas DO [address] [place] [address] 11/15/2023 10:30 AM EDT Office Visit Orthopaedics, [facility] [address] [place] [address] Alexei Naylor PA-C [address] [place] [address] 12/12/2023 1:40 PM EDT Office Visit Dermatology [facility] [address] [place] [address] Osmin Byrd PA-C [address] [place] [address] [phone] Health Maintenance Due Date Last Done Comments [...] this encounter Medical Devices Implanted Type Area Supervisor Wheel Shop Device Identifier Shelf Expiration Date Model / Serial / Lot Graft Cervical 6x8 Bi6d-G59 - [id number] - [id number] Implanted:Qt y: 1 on 03/19/2018 by Ubaldo Johnson MD [place] [facility] Tissue - Human N/A: Spine Cervical LIFENET 08/01/2022 [id number] / [id number] / [id number] Graft Cervical 6x8 [id number]-V13 - [id number] - [id number] Implanted:Qt y: 1 on 03/19/2018 by Ubaldo Johnson MD [place] [facility] Tissue - Human N/A: Spine Cervical LIFENET 04/19/2022 [id number] / [id number] / [id number] Plate Cerv 2 Lev 34mm Std - [id number] Implanted:Qt y: 1 on 03/19/2018 by Ubaldo Johnson MD at [place] [facility] N/A: Spine Cervical [facility] [id number] / / Description:from set Screw St Efrain Slf Drl 4.0x14mm - [id number] Implanted:Qt y: 3 on 03/19/2018 by Ubaldo Johnson MD at [place] [facility] N/A: Spine Cervical [employer] [id number] / / Description:from set Screw St Efrain Slf Drl 4.0x16mm - [id number] Implanted:Qt y: 3 on 03/19/2018 by Ubaldo Johnson MD at [place] [facility] N/A: Spine Cervical [employer] [id number] / / Description:from set Mesh Perfix Plug Lg [id number] - [id number] Implanted:Qt y: 1 on 02/15/2019 by Josué Kelley MD at [place] [facility] N/A: Groin CR BARD : DAVOL [id number] 03/11/2023 [id number] / / [id number] Lead Kit Trial [id number] 50cm - [id number] - [id number] Implanted:Qt y: 1 on 11/02/2022 by Franklin Olmos DO at OR [facility] N/A: Back [employer] : PAIN MGMT 08/05/2024 [id number] 650E0 / [id number] / [id number] documented as of this encounter Visit Diagnoses [...] michelle occurred with: Not Discussed Care Teams Outside Upholsterer Relationship Specialty Start Date End Date Reinier Thomas DO [address] [place] [address] PCP - General Internal Medicine 03/17/21 documented as of this encounter
--- OUTSIDE RECORDS SUMMARY | 2023-08-24 22:21 | External Medical Summary | Summary of Care ---
Author Name Unknown Organization [facility] Address [address] [place] [address] Phone [phone] Care Team Providers Care Manager Inventory Management Name Role Phone eRinier hTomas DO Primary Care Provid er Reason for Visit * Reason Onset Date Comments Other 08/17/2023 Enoxaparin Sodiu m 80 MG/0.8ML Injection Solution Prefilled Syringe (Lovenox) Encounter Details Date Type Department Care Team ([facility] st Contact Info) Description 08/17/[address] [phone] Reinier Thomas DO [address] [place] [address] Other (Enoxaparin Sodium 80 MG/0.8ML Injec... 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 Thank you, Dianna Pereyra CPhT Newspaper Managing Editor Centralized Clinical Pharmacy Services (CCPS)(formerly telepharmacy) 08/18/2023,9:43 AM * Telephone Encounter - Mona Melendez [facility] - 08/18/2023 8:09 AM EDT Returned call [...] 5:06 PM EDT Christophe calling as her [facility] have even more questions regarding the [...] (porcine) (1000 unit/ml solution, 5000 unit/ml solution, 26376 unit/ml solution, 11417 unit/ml solution), warfarin or jantoven tablet Please call Christophe [phone], as it is needed back by 9:30 oon 08/18/23 Thank You, Padma Thompson [facility] Newspaper Managing Editor III Centralized Clinical Pharmacy Services (CCPS) (Formerly [...] 08/17/2023 4:00 PM EDT Christophe calling from [facility]. They need clarification on if Enoxaparin Sodium 80 MG/0.8ML Injection Solution Prefilled Syringe (Lovenox) is brand preferred or if it's to be generic. Please return her call at [phone]. EOC#: [id number] Thank you, Emelina Rankin, Cone Chocolate Dipper Centralized Clinical Pharmacy Services (CCPS) ([facility]) 08/17/2023,4:03 PM * Telephone Encounter - Mona Melendez [facility] - 08/17/2023 2:33 PM EDT Returned call and spoke to [place] to further discuss. Patient's dose should be 80 mg (weight based dosing of 1mg/kg). Discussed that it is for a lovenox bridge and patient is to only receive 10 syringes. Mona Melendez, PharmD, [facility] Clinical Pharmacist Medication Therapy Disease Management 08/17/2023, 2:47 PM * Telephone Encounter - Marce Blake auto body technician - 08/17/2023 1:57 PM EDT [place] from [facility] calling to advise Verbal info given states Lovenox 70mg, but this med only comes in40,60 and 80mg syringes. Please advise of correct dosing by calling [facility] at [phone] Thanks, Marce Blake Newspaper Managing Editor III Centralized Clinical Pharmacy Services (CCPS) 08/17/2023,1:57 PM * Telephone Encounter - Gaviota Ortega CPhT - 08/17/2023 1:30 PM EDT [facility] calling in with medication questions regarding Enoxaparin Sodium 80 MG/0.8ML Injection SolutionPrefilled Syringe (Lovenox). Pt is being [facility] by [facility]. Transferred [facility] . Thank you, Gaviota Ortega [facility] Chocolate Dipper [facility] 08/17/2023, 1:31 PM documented in this encounter Plan of Treatment Upcoming Encounters Date Type Department Care Team (Late st Contact Info) Description 09/07/2023 9:50 AM EDT Anticoagulation Pharmacy, [place] [address] [place] [address] [place] [facility] [address] [place] [address] 10/18/2023 1:40 PM EDT Office Visit Family Practice [facility] [address] [place] [address] Reinier Thomas DO [address] [place] [address] 11/15/2023 10:30 AM EDT Office Visit Orthopaedics, [facility] [address] [place] [address] Alexei Naylor PA-C [address] [place] [address] 12/12/2023 1:40 PM EDT Office Visit Dermatology [facility] [address] [place] [address] Osmin Byrd PA-C [address] [place] [address] [phone] Health Maintenance Due Date Last Done Comments [...] this encounter Medical Devices Implanted Type Area Centrifuge Separator Operator Device Identifier Shelf Expiration Date Model / Serial / Lot Graft Cervical 6x8 [id number]-R20 - [id number] - [id number] Implanted:Qt y: 1 on 03/19/2018 by Ubaldo Johnson MD at [place] [facility] Tissue - Human N/A: Spine Cervical L[employer]ET 08/01/2022 [id number] / [id number] / [id number] Graft Cervical 6x8 Kh0f-F85 - [id number] - [id number] Implanted:Qt y: 1 on 03/19/2018 by Ubaldo Johnson MD at OR [facility] [place] Tissue - Human N/A: Spine Cervical [employer]ET 04/19/2022 [id number]-T80 / [id number] [id number] / [id number] Plate Cerv 2 Lev 34mm Std - [id number] Implanted:Qt y: 1 on 03/19/2018 by Ubaldo Johnson MD at OR [facility] [place] N/A: Spine Cervical [facility] [id number] / / Description:from set Screw St Efrain Slf Drl 4.0x14mm - [id number] Implanted:Qt y: 3 on 03/19/2018 by Ubaldo Johnson MD at OR [facility] [place] N/A: Spine Cervical [employer] [id number] / / Description:from set Screw St Efrain Slf Drl 4.0x16mm - [id number] Implanted:Qt y: 3 on 03/19/2018 by Ubaldo Johnson MD at OR [facility] [place] N/A: Spine Cervical [employer] [id number] / / Description:from set Mesh Perfix Plug Lg 6028156 - [id number] Implanted:Qt y: 1 on 02/15/2019 by Josué Kelley MD at OR [facility] N/A: Groin CR BARD : DAVOL [id number] 03/11/2023 [id number] 70 / / [id number] Lead Kit Trial [id number] 50cm - [id number] - [id number] Implanted:Qt y: 1 on 11/02/2022 by Franklin Olmos DO at OR [facility] N/A: Back [employer] : PAIN MGMT 08/05/2024 [id number] 650E0 / [id number] / [id number] documented as of this encounter Visit Diagnoses [...] michelle occurred with: Not Discussed Care Teams Manager Inventory Management Relationship Specialty Start Date End Date Reinier Thomas DO [address] [place] [address] PCP - General Internal Medicine 03/17/21 documented as of this encounter
--- OUTSIDE RECORDS SUMMARY | 2023-08-24 22:21 | External Medical Summary | Summary of Care ---
Author Name Unknown Organization [facility] Address [address] [place] [address] Phone [phone] Care Team Providers Care Carbonator Name Role Phone Reinier Thomas DO Primary Care Provid er Reason for Visit * Reason Onset Date Comments Other 08/17/2023 Enoxaparin Sodiu m 80 MG/0.8ML Injection Solution Prefilled Syringe (Lovenox) Encounter Details Date Type Department Care Team ([facility] st Contact Info) Description 08/17/[address] [address] Reinier Thomas DO [address] [place] [address] Other (Enoxaparin Sodium 80 MG/0.8ML Injec... 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 Was informed that patient [...] (porcine) (1000 unit/ml solution, 5000 unit/ml solution, 02846 unit/ml solution, 94624 unit/ml solution) They will fax this info to the office, please review and resubmit if appropriate. Thank you, Marci Oshea CPhT Political Consultant Radiologic Technician Centralized Clinical Pharmacy Services (CCPS) (Formerly Telepharmacy) 08/18/2023,12:25 PM * Telephone Encounter - Dianna Pereyra CPhT - 08/18/2023 9:43 AM EDT Patients insurance would like to inform the office that Enoxaprin is denied because needs to try one formulary alternative. They will fax this info to the office, please review and resubmit if appropriate. Thank you, Dianna Pereyra CPhT Bomb Squad Officer Centralized Clinical Pharmacy Services (CCPS)(formerly telepharmacy) 08/18/2023,9:43 AM * Telephone Encounter - Mona Melendez RPh - 08/18/2023 8:09 AM EDT Returned call [...] 5:06 PM EDT Christophe calling as her [facility] have even more questions regarding [...] (porcine) (1000 unit/ml solution, 5000 unit/ml solution, 17945 unit/ml solution, 27219 unit/ml solution), warfarin or jantoven tablet Please call Christophe [phone], as it is needed back by 9:30 oon 08/18/23 Thank You, Padma Thompson [facility] Bomb Squad Officer III Centralized Clinical Pharmacy Services (CCPS) (Formerly Telepharmacy) 08/17/2023, 5:07 PM * Telephone Encounter - Mona Melendez [facility] - 08/17/2023 4:11 PM EDT Returned call to Christophe and reviewed that it should be for the generic lovenox (enoxaparin). Mona Melendez PharmD, BCACP Clinical Pharmacist Medication Therapy Disease Management 08/17/2023, 4:12 PM * Telephone Encounter - Emelina Rankin PHARM Tech - 08/17/2023 4:00 PM EDT Christophe calling from [facility]. They need clarification on if Enoxaparin Sodium 80 MG/0.8ML Injection Solution Prefilled Syringe (Lovenox) is brand preferred or if it's to be generic. Please return her call at [phone]. EOC#: [id number] Thank you, Emelina Rankin, Political Consultant Centralized Clinical Pharmacy Services (CCPS) (Formerly Telepharmacy) 08/17/2023,4:03 PM * Telephone Encounter - Mona Melendez [facility] - 08/17/2023 2:33 PM EDT Returned call and spoke to [place] to further discuss. Patient's dose should be 80 mg (weight based dosing of 1mg/kg). Discussed that it is for a lovenox bridge and patient is to only receive 10 syringes. Mona Melendez, PharmD, [facility] Clinical Pharmacist Medication Therapy Disease Management 08/17/2023, 2:47 PM * Telephone Encounter - Marce Blake geosciences faculty member - 08/17/2023 1:57 PM EDT [place] from [facility] calling to advise Verbal info given states Lovenox 70mg, but this med only comes in40,60 and 80mg syringes. Please advise of correct dosing by calling [facility] at [phone] Thanks, Marce Blake Bomb Squad Officer III Centralized Clinical Pharmacy Services (CCPS) 08/17/2023,1:57 PM * Telephone Encounter - Gaviota Ortega CPhT - 08/17/2023 1:30 PM EDT [facility] calling in with medication questions regarding Enoxaparin Sodium 80 MG/0.8ML Injection SolutionPrefilled Syringe (Lovenox). Pt is being seen by [facility] Clinic. Transferred P . Thank you, Gaviota Ortega Political Consultant [facility] 08/17/2023, 1:31 PM documented in this encounter Plan of Treatment Upcoming Encounters Date Type Department Care Team (Late st Contact Info) Description 09/07/2023 9:50 AM EDT Anticoagulation Pharmacy, [place] [address] [place] [address] [place], [facility] [address] [place] [address] 10/18/2023 1:40 PM EDT Office Visit Family Practice [facility] [address] [place] [address] Reinier Thomas DO [address] [place] [address] 11/15/2023 10:30 AM EDT Office Visit Orthopaedics, [facility] [address] [place] [address] Alexei Naylor PA-C [address] [place] [address] 12/12/2023 1:40 PM EDT Office Visit Dermatology [facility] [address] [place] [address] Osmin Byrd PA-C [address] [place] [address] [phone] Health Maintenance Due Date Last Done Comments [...] this encounter Medical Devices Implanted Type Area System Specialist Device Identifier Shelf Expiration Date Model / Serial / Lot Graft Cervical 6x8 [id number]-N22 - [id number] - [id number] Implanted:Qt y: 1 on 03/19/2018 by Ubaldo Johnson MD at [place] [facility] [place] Tissue - Human N/A: Spine Cervical L[employer] 08/01/2022 [id number] / [id number] / [id number] Graft Cervical 6x8 Ts3q-P94 - [id number] - [id number] Implanted:Qt y: 1 on 03/19/2018 by Ubaldo Johnson MD at OR [facility] [place] Tissue - Human N/A: Spine Cervical [employer] 04/19/2022 [id number] / [id number] / [id number] Plate Cerv 2 Lev 34mm Std - [id number] Implanted:Qt y: 1 on 03/19/2018 by Ubaldo Johnson MD at OR [facility] [place] N/A: Spine Cervical [employer] [id number] / / Description:from set Screw St Efrain Slf Drl 4.0x14mm - [id number] Implanted:Qt y: 3 on 03/19/2018 by Ubaldo Johnson MD at OR [facility] [place] N/A: Spine Cervical [employer] [id number] / / Description:from set Screw St Efrain Slf Drl 4.0x16mm - [id number] Implanted:Qt y: 3 on 03/19/2018 by Ublado Johnson MD at OR [facility] [place] N/A: Spine Cervical [employer] [id number] / / Description:from set Mesh Perfix Plug Lg 6199105 - [id number] Implanted:Qt y: 1 on 02/15/2019 by Josué Kelley MD at OR [facility] [place] N/A: Groin CR BARD : DAVOL [id number] 03/11/2023 [id number] 70 / / [id number] Lead Kit Trial [id number] 50cm - [id number] - [id number] Implanted:Qt y: 1 on 11/02/2022 by Franklin Olmos DO at OR [facility] N/A: Back [employer] : PAIN MGMT 08/05/2024 [id number] 650E0 / [id number] / [id number] documented as of this encounter Visit Diagnoses [...] michelle occurred with: Not Discussed Care Teams Carbonator Relationship Specialty Start Date End Date Reinier Thomas DO [address] [place] [address] PCP - General Internal Medicine 03/17/21 documented as of this encounter
--- OUTSIDE RECORDS SUMMARY | 2023-08-24 22:21 | External Medical Summary | Summary of Care ---
Author Name Unknown Organization [facility] Address [address] [place] [address] Phone [phone] Care Team Providers Care Equipment Engineering Technician Name Role Phone Reinier Thomas DO Primary Care Provid er Reason for Visit * Reason Onset Date Comments Other 08/17/2023 Enoxaparin Sodiu m 80 MG/0.8ML Injection Solution Prefilled Syringe (Lovenox) Encounter Details Date Type Department Care Team ([facility] st Contact Info) Description 08/17/[address] [address] Reinier Thomas DO [address] [place] [address] Other (Enoxaparin Sodium 80 MG/0.8ML Injec... 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 11/28/2004 [...] 5:06 PM EDT Christophe calling as her [facility] have even more questions regarding the [...] (porcine) (1000 unit/ml solution, 5000 unit/ml solution, 88764 unit/ml solution, 27734 unit/ml solution), warfarin or jantoven tablet Please call Christophe [phone], as it is needed back by 9:30 oon 08/18/23 Thank You, Padma Thompson [facility] Music Engineer III Centralized Clinical Pharmacy Services (CCPS) (Formerly Telepharmacy) 08/17/2023, 5:07 PM * Telephone Encounter - Mona Melendez [facility] - 08/17/2023 4:11 PM EDT Returned call to Christophe and reviewed that it should be for the generic lovenox (enoxaparin). Mona Melendez PharmD, IFEANYI Clinical Pharmacist Medication Therapy Disease Management 08/17/2023, 4:12 PM * Telephone Encounter - Emelina Rankin PHARM Tech - 08/17/2023 4:00 PM EDT Christophe calling from [facility]. They need clarification on if Enoxaparin Sodium 80 MG/0.8ML Injection Solution Prefilled Syringe (Lovenox) is brand preferred or if it's to be generic. Please return her call at [phone]. EOC#: [id number] Thank you, Emelina Rankin, Manager Of Software Centralized Clinical Pharmacy Services (CCPS) (Formerly Telepharmacy) 08/17/2023,4:03 PM * Telephone Encounter - Mona Melendez RPh - 08/17/2023 2:33 PM EDT Returned call and spoke to [place] to further discuss. Patient's dose should be 80 mg (weight based dosing of 1mg/kg). Discussed that it is for a lovenox bridge and patient is to only receive 10 syringes. Mona Melendez PharmD, IFEANYI Clinical Pharmacist Medication Therapy Disease Management 08/17/2023, 2:47 PM * Telephone Encounter - Marce Blake PHARM Tech - 08/17/2023 1:57 PM EDT [place] from [facility] calling to advise Verbal info given states Lovenox 70mg, but this med only comes in40,60 and 80mg syringes. Please advise of correct dosing by calling [facility] at [phone] Thanks, Marce Blake Music Engineer III Centralized Clinical Pharmacy Services (CCPS) 08/17/2023,1:57 PM * Telephone Encounter - Gaviota Ortega CPhT - 08/17/2023 1:30 PM EDT [facility] calling in with medication questions regarding Enoxaparin Sodium 80 MG/0.8ML Injection SolutionPrefilled Syringe (Lovenox). Pt is being seen by [facility]. Transferred [facility] . Thank you, Gaviota Ortega Manager Of Software [facility] 08/17/2023, 1:31 PM documented in this encounter Plan of Treatment Upcoming Encounters Date Type Department Care Team (Late st Contact Info) Description 09/07/2023 9:50 AM EDT Anticoagulation Pharmacy, [address] [address] [facility] [address] [place] [address] 10/18/2023 1:40 PM EDT Office Visit [facility] [address] [place] [address] Reinier Thomas DO [address] [place] [address] 11/15/2023 10:30 AM EDT Office Visit Orthopaedics, [facility] [address] [place] [address] Alexei Naylor PA-C [address] [place] [address] 12/12/2023 1:40 PM EDT Office Visit Dermatology [facility] [address] [place] [address] Osmin Byrd PA-C [address] [place] [address] Health Maintenance Due Date Last Done Comments [...] this encounter Medical Devices Implanted Type Area Agent Licensing Clerk Device Identifier Shelf Expiration Date Model / Serial / Lot Graft Cervical 6x8 Gv1d-U00 - [id number] - [id number] Implanted:Qt y: 1 on 03/19/2018 by Ubaldo Johnson MD [place] [facility] [place] Tissue - Human N/A: Spine Cervical LIFENET 08/01/2022 [id number] / [id number] / [id number] Graft Cervical 6x8 Ls8n-U50 - [id number] - [id number] Implanted:Qt y: 1 on 03/19/2018 by Ubaldo Johnson MD [place] [facility] [place] Tissue - Human N/A: Spine Cervical LIFENET 04/19/2022 [id number] / [id number] / [id number] Plate Cerv 2 Lev 34mm Std - [id number] Implanted:Qt y: 1 on 03/19/2018 by Ubaldo Johnson MD at [place] [facility] [place] N/A: Spine Cervical [facility] [id number] / / Description:from set Screw St Efrain Slf Drl 4.0x14mm - [id number] Implanted:Qt y: 3 on 03/19/2018 by Ubaldo Johnson MD at [place] [facility] [place] N/A: Spine Cervical [facility] [id number] / / Description:from set Screw St Efrain Slf Drl 4.0x16mm - [id number] Implanted:Qt y: 3 on 03/19/2018 by Ublado Johnson MD at [place] [facility] [place] N/A: Spine Cervical [facility] [id number] / / Description:from set Mesh Perfix Plug Lg [id number] - [id number] Implanted:Qt y: 1 on 02/15/2019 by Josué Kelley MD at [place] [facility] [place] N/A: Naz ENRIQUEZ : DAVOL [id number] 03/11/2023 [id number] 70 / / [id number] Lead Kit Trial [id number] 50cm - [id number] - [id number] Implanted:Qt y: 1 on 11/02/2022 by Franklin Olmos DO at OR [facility] N/A: Back NicOx : PAIN MGMT 08/05/2024 [id number] 650E0 / [id number] / [id number] documented as of this encounter Visit Diagnoses [...] michelle occurred with: Not Discussed Care Teams Equipment Engineering Technician Relationship Specialty Start Date End Date Reinier Thomas DO [address] [place] [address] [place] [id number] PCP - General Internal Medicine 03/17/21 documented as of this encounter
--- OUTSIDE RECORDS SUMMARY | 2023-08-24 22:21 | External Medical Summary | Summary of Care ---
Author Name Unknown Organization [facility] Address [address] [place] [address] Phone [phone] Care Team Providers Care Woodwinds Teacher Name Role Phone Reinier Thomas DO Primary Care Provid er Reason for Visit * Reason Onset Date Comments Other 08/17/2023 Enoxaparin Sodiu m 80 MG/0.8ML Injection Solution Prefilled Syringe (Lovenox) FYI 08/17/2023 Encounter Details Date Type Department Care Team ([facility] st Contact Info) Description 08/17/2023 Telephone Family [address] [address] Reinier Thomas DO [address] [place] [address] Other (Enoxaparin Sodium 80 MG/0.8ML Injec... 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 Connected to pharmacy team. Call back #[phone] * Telephone Encounter - Mona Melendez RPh - 08/18/2023 1:38 PM EDT Messaged [facility] Pharmacist TEAMs Chat. Was informed that [...] further actions necessary at this time. Mona Melednez, James, BCACP Clinical Pharmacist Medication Therapy Disease [...] (porcine) (1000 unit/ml solution, 5000 unit/ml solution, 63462 unit/ml solution, 60374 unit/ml solution) They will fax this info to the office, please review and resubmit if appropriate. Thank you, Marci Oshea [facility] Concrete Buster Operator Plastic Bubble Packer Centralized Clinical Pharmacy Services (CCPS) (Formerly Telepharmacy) 08/18/2023,12:25 PM * Telephone Encounter - Dianna Pereyra CPhT - 08/18/2023 9:43 AM EDT Patients insurance would like to inform the office that Enoxaprin is denied because needs to try one formulary alternative. They will fax this info to the office, please review and resubmit if appropriate. Thank you, Dianna Pereyra CPhT Tacker Elastic Band Centralized Clinical Pharmacy Services (CCPS)(formerly telepharmacy) 08/18/2023,9:43 AM * Telephone Encounter - Mona Melendez [facility] - 08/18/2023 8:09 AM EDT Returned [...] do not have a direct line. Mona Melendez PharmD, MAKAYLACP Clinical Pharmacist Medication Therapy Disease Management 08/18/2023, 8:10 AM * Telephone Encounter - Padma Thompson PHARM Tech - 08/17/2023 5:06 PM EDT Christophe calling as her [facility] have even more questions regarding the [...] (porcine) (1000 unit/ml solution, 5000 unit/ml solution, 37735 unit/ml solution, 85539 unit/ml solution), warfarin or jantoven tablet Please call Christophe [phone], as it is needed back by 9:30 oon 08/18/23 Thank You, Padma Thompson [facility] Tacker Elastic Band III Centralized Clinical Pharmacy Services (CCPS) (Formerly Telepharmacy) 08/17/2023, 5:07 PM * Telephone Encounter - Mona Melendez [facility] - 08/17/2023 4:11 PM EDT Returned call to Christophe and reviewed that it should be for the generic lovenox (enoxaparin). Mona Melendez PharmD, IFEANYI Clinical Pharmacist Medication Therapy Disease Management 08/17/2023, 4:12 PM * Telephone Encounter - Emelina Rankin PHARM Tech - 08/17/2023 4:00 PM EDT Christophe calling from [facility]. They need clarification on if Enoxaparin Sodium 80 MG/0.8ML Injection Solution Prefilled Syringe (Lovenox) is brand preferred or if it's to be generic. Please return her call at [phone]. EOC#: [id number] Thank you, Emelina Rankin, Concrete Buster Operator Centralized Clinical Pharmacy Services (CCPS) (Formerly [employer]) 08/17/2023,4:03 PM * Telephone Encounter - Mona Melendez RPh - 08/17/2023 2:33 PM EDT Returned call and spoke to [place] to further discuss. Patient's dose should be 80 mg (weight based dosing of 1mg/kg). Discussed that it is for a lovenox bridge and patient is to only receive 10 syringes. Mona Melendez, PharmD, [facility] Clinical Pharmacist Medication Therapy Disease Management 08/17/2023, 2:47 PM * Telephone Encounter - Marce Blake PHARM Tech - 08/17/2023 1:57 PM EDT [place] from [facility] calling to advise Verbal info given states Lovenox 70mg, but this med only comes in40,60 and 80mg syringes. Please advise of correct dosing by calling [facility] at [phone] Thanks, Marce Blake Tacker Elastic Band III Centralized Clinical Pharmacy Services (CCPS) 08/17/2023,1:57 PM * Telephone Encounter - Gaviota Ortega CPhT - 08/17/2023 1:30 PM EDT [facility] calling in with medication questions regarding Enoxaparin Sodium 80 MG/0.8ML Injection SolutionPrefilled Syringe (Lovenox). Pt is being seen by [facility]. Transferred [facility] . Thank you, Gaviota Ortega Concrete Buster Operator [facility] 08/17/2023, 1:31 PM documented in this encounter Plan of Treatment Upcoming Encounters Date Type Department Care Team ([facility] st Contact Info) Description 09/07/2023 9:50 AM EDT Anticoagulation Pharmacy, [address] [address] [place] [address] [place] [address] 10/18/2023 1:40 PM EDT Office Visit Family [facility] [address] [place] [address] Reinier Thomas DO [address] [place] [address] 11/15/2023 10:30 AM EDT Office Visit Orthopaedics, [facility] [address] [place] [address] Alexei Naylor PA-C [address] [place] [address] 12/12/2023 1:40 PM EDT Office Visit Dermatology [facility] [address] [place] [address] Osmin Byrd PA-C [address] [place] [address] Health Maintenance Due Date Last Done Comments [...] this encounter Medical Devices Implanted Type Area Engineering Mathematician Device Identifier Shelf Expiration Date Model / Serial / Lot Graft Cervical 6x8 Ix0j-X90 - [id number] - [id number] Implanted:Qt y: 1 on 03/19/2018 by Ubaldo Johnson MD at [place] [facility] Tissue - Human N/A: Spine Cervical LIFENET 08/01/2022 VX7C-V65 / [id number] / [id number] Graft Cervical 6x8 Vq1t-W30 - [id number] - [id number] Implanted:Qt y: 1 on 03/19/2018 by Ubaldo Johnson MD at OR [facility] Tissue - Human N/A: Spine Cervical LIFENET 04/19/2022 CN0F-O39 / [id number] [id number] / [id number] [id number] Plate Cerv 2 Lev 34mm Std - [id number] Implanted:Qt y: 1 on 03/19/2018 by Ubaldo Johnson MD at OR [facility] [place] N/A: Spine Cervical [facility] [id number] / / Description:from set Screw St Efrain Slf Drl 4.0x14mm - [id number] Implanted:Qt y: 3 on 03/19/2018 by Ubaldo Johnson MD at OR [facility] N/A: Spine Cervical [facility] [id number] / / Description:from set Screw St Efrain Slf Drl 4.0x16mm - [id number] Implanted:Qt y: 3 on 03/19/2018 by Ubaldo Johnson MD at [place] [facility] [place] N/A: Spine Cervical [facility] [id number] / / Description:from set Mesh Perfix Plug Lg 7664573 - [id number] Implanted:Qt y: 1 on 02/15/2019 by Josué Kelley MD at OR [facility] N/A: Naz CAMACHO BARD : DAVOL [id number] 03/11/2023 [id number] 70 / / [id number] Lead Kit Trial Vuxonaqw24 50cm - [id number] - [id number] Implanted:Qt y: 1 on 11/02/2022 by Franklin Olmos DO at OR [facility] N/A: Back [employer] : PAIN MGMT 08/05/2024 [id number] 650E0 / [id number] / [id number] documented as of this encounter Visit Diagnoses [...] michelle occurred with: Not Discussed Care Teams Woodwinds Teacher Relationship Specialty Start Date End Date Reinier Thomas DO [address] [place] [address] PCP - General Internal Medicine 03/17/21 documented as of this encounter
--- OUTSIDE RECORDS SUMMARY | 2023-08-24 22:21 | External Medical Summary | Summary of Care ---
Author Name Unknown Organization [facility] Address [address] [place] [address] Phone [phone] Care Team Providers Care Furnace Clerk Name Role Phone Reinier Thomas DO Primary Care Provid er Reason for Visit * Reason Onset Date Comments Other 08/17/2023 Enoxaparin Sodiu m 80 MG/0.8ML Injection Solution Prefilled Syringe (Lovenox) Encounter Details Date Type Department Care Team ([facility] st Contact Info) Description 08/17/[address] [address] Reinier Thomas DO [address] [place] [address] Other (Enoxaparin Sodium 80 MG/0.8ML Injec... 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 calling to advise Verbal info given states Lovenox 70mg, but this med only comes in40,60 and 80mg syringes. Please advise of correct dosing by calling [facility] at [phone] ThanksMarce Director Digital Advertising III Centralized Clinical Pharmacy Services (CCPS) 08/17/2023,1:57 PM * Telephone Encounter - Gaviota Ortega CPhT - 08/17/2023 1:30 PM EDT [facility] calling in with medication questions regarding Enoxaparin Sodium 80 MG/0.8ML Injection SolutionPrefilled Syringe (Lovenox). Pt is being seen by [facility]. Transferred [facility] . Thank you, Gaviota Ortega Culvert Installer [facility] 08/17/2023, 1:31 PM documented in this encounter Plan of Treatment Upcoming Encounters Date Type Department Care Team ([facility] st Contact Info) Description 09/07/2023 9:50 AM EDT Anticoagulation Pharmacy, [place] [address] [place] [address] [place], [facility] [address] [place] [address] 10/18/2023 1:40 PM EDT Office Visit Family [facility] [address] [place] [address] Reinier Thomas DO [address] [place] [address] 11/15/2023 10:30 AM EDT Office Visit Orthopaedics, [place] [address] [place] [address] Alexei Naylor PA-C [address] [place] [address] 12/12/2023 1:40 PM EDT Office Visit Dermatology [facility] [address] [place] [address] Osmin Byrd PA-C [address] [place] [address] Health Maintenance Due Date Last Done Comments [...] this encounter Medical Devices Implanted Type Area Faucets Assembler Device Identifier Shelf Expiration Date Model / Serial / Lot Graft Cervical 6x8 Il2s-R54 - [id number] - [id number] Implanted:Qt y: 1 on 03/19/2018 by Ubaldo [place] [facility] [place] - Human N/A: Spine Cervical LIFENET 08/01/2022 SS5L-V28 / [id number] / [id number] Graft Cervical 6x8 Bn7f-Y81 - [id number] - [id number] Implanted:Qt y: 1 on 03/19/2018 by Ubaldo Johnson [place] [facility] - Human N/A: Spine Cervical LIFENET 04/19/2022 [id number] / [id number] [id number] / [id number] Plate Cerv 2 Lev 34mm Std - [id number] Implanted:Qt y: 1 on 03/19/2018 by Ubaldo Johnson [place] [facility] N/A: Spine Cervical [facility] [id number] / / Description:from set Screw St Efrain Slf Drl 4.0x14mm - [id number] Implanted:Qt y: 3 on 03/19/2018 by Ubaldo Johnson MD [place] [facility] N/A: Spine Cervical [facility] [id number] / / Description:from set Screw St Efrain Slf Drl 4.0x16mm - [id number] Implanted:Qt y: 3 on 03/19/2018 by Ubaldo Johnson MD [place] [facility] N/A: Spine Cervical [facility] [id number] / / Description:from set Mesh Perfix Plug Lg 4028194 - [id number] Implanted:Qt y: 1 on 02/15/2019 by Josué Kelley MD [place] [facility] N/A: Naz CAMACHO BARD : DAVOL [id number] 03/11/2023 [id number] 70 / / [id number] Lead Kit Trial Lgvazqij95 50cm - [id number] - [id number] Implanted:Qt y: 1 on 11/02/2022 by Franklin Olmos DO at OR [facility] N/A: Back [employer] : PAIN MGMT 08/05/2024 [id number] 650E0 / [id number] / [id number] documented as of this encounter Visit Diagnoses [...] michelle occurred with: Not Discussed Care Teams Furnace Clerk Relationship Specialty Start Date End Date Reinier Thomas DO [address] [place] [address] [phone] (work) PCP - General Internal Medicine 03/17/21 documented as of this encounter
--- OUTSIDE RECORDS SUMMARY | 2023-08-24 22:21 | External Medical Summary | Summary of Care ---
Author Name Unknown Organization [facility] Address [address] [place] [address] Phone [phone] Care Team Providers Care Granite Polisher Machine Name Role Phone Reinier Thomas DO Primary Care Provid er Reason for Visit * Reason Onset Date Comments Other 08/17/2023 Enoxaparin Sodiu m 80 MG/0.8ML Injection Solution Prefilled Syringe (Lovenox) Encounter Details Date Type Department Care Team ([facility] st Contact Info) Description 08/17/[address] [address] Reinier Thomas DO [address] [place] [address] Other (Enoxaparin Sodium 80 MG/0.8ML Injec... 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 They need clarification on if Enoxaparin Sodium 80 MG/0.8ML Injection Solution Prefilled Syringe (Lovenox) is brand preferred or if it's to be generic. Please return her call at [phone]. EOC#: [id number] Thank you, Emelina Rankin, Principal Process Engineer Centralized Clinical Pharmacy Services (CCPS) (Formerly Telepharmacy) [...] PM * Telephone Encounter - Marce Blake director of cardiology - 08/17/2023 1:57 PM EDT [place] from [facility] calling to advise Verbal info given states Lovenox 70mg, but this med only comes in40,60 and 80mg syringes. Please advise of correct dosing by calling [facility] at [phone] Thanks, Marce Blake Starch Mangle Tender III Centralized Clinical Pharmacy Services (CCPS) 08/17/2023,1:57 PM * Telephone Encounter - Gaviota Ortega CPhT - 08/17/2023 1:30 PM EDT [facility] calling in with medication questions regarding Enoxaparin Sodium 80 MG/0.8ML Injection SolutionPrefilled Syringe (Lovenox). Pt is being seen by [facility]. Transferred [facility] . Thank you, Gaviota Ortega Principal Process Engineer [facility] 08/17/2023, 1:31 PM documented in this encounter Plan of Treatment Upcoming Encounters Date Type Department Care Team (Late st Contact Info) Description 09/07/2023 9:50 AM EDT [facility] [place] [address] [facility] [address] [facility] [address] [facility] [address] 10/18/2023 1:40 PM EDT Office Visit Family Practice [facility] [address] [place] [address] Reinier Thomas DO [address] [place] [address] 11/15/2023 10:30 AM EDT Office Visit Orthopaedics, [facility] [address] [place] [address] Alexei Naylor PA-C [address] [place], [place] [address] 12/12/2023 1:40 PM EDT Office Visit Dermatology [facility] [address] [place] [address] Osmin Byrd PA-C [address] [place], [place] [phone] Health Maintenance Due Date Last Done Comments [...] this encounter Medical Devices Implanted Type Area Senior Risk Manager Device Identifier Shelf Expiration Date Model / Serial / Lot Graft Cervical 6x8 Oe4f-L13 - [id number] - [id number] Implanted:Qt y: 1 on 03/19/2018 by Ubaldo Johnson MD at OR [facility] Tissue - Human N/A: Spine Cervical LIFENET 08/01/2022 [id number] / [id number] / [id number] 016 Graft Cervical 6x8 Oy6m-Q18 - [id number] - [id number] Implanted:Qt y: 1 on 03/19/2018 by Ubaldo Johnson MD at OR [facility] Tissue - Human N/A: Spine Cervical LIFENET 04/19/2022 BJ0R-C25 / [id number] [id number] / [id number] Plate Cerv 2 Lev 34mm Std - [id number] Implanted:Qt y: 1 on 03/19/2018 by Ubaldo Johnson MD at OR [facility] N/A: Spine Cervical [employer] [id number] / / Description:from set Screw St Efrain Slf Drl 4.0x14mm - [id number] Implanted:Qt y: 3 on 03/19/2018 by Ubaldo Johnson MD at OR [facility] N/A: Spine Cervical [employer] [id number] / / Description:from set Screw St Efrain Slf Drl 4.0x16mm - [id number] Implanted:Qt y: 3 on 03/19/2018 by Ubaldo Johnson MD at OR [facility] N/A: Spine Cervical [employer] [id number] / / Description:from set Mesh Perfix Plug Lg 2427906 - [id number] Implanted:Qt y: 1 on 02/15/2019 by Josué Kelley MD at OR [facility] N/A: aNz CAMACHO BARD : DAVOL [id number] 03/11/2023 [id number] 70 / / [id number] Lead Kit Trial Fxvazxeu59 50cm - [id number] - [id number] Implanted:Qt y: 1 on 11/02/2022 by Franklin Omlos DO at OR [facility] N/A: Back Continuent : PAIN MGMT 08/05/2024 [id number] 650E0 / [id number] / [id number] documented as of this encounter Visit Diagnoses [...] michelle occurred with: Not Discussed Care Teams Granite Polisher Machine Relationship Specialty Start Date End Date Reinier Thomas DO [address] [place] [address] PCP - General Internal Medicine 03/17/21 documented as of this encounter
--- OUTSIDE RECORDS SUMMARY | 2023-08-24 22:21 | External Medical Summary | Summary of Care ---
Author Name Unknown Organization [facility] Address [address] [place] [address] Phone [phone] Care Team Providers Care Plate Fitter Name Role Phone Reinier Thomas DO Primary Care Provid er Reason for Visit * Reason Onset Date Comments Information 08/17/2023 Encounter Details Date Type Department Care Team ([facility] Contact Info) Description 08/17/[address] [phone] Reinier Thomas DO [address] [place] [address] Information Allergies Active Allergy Reactions Criticality Noted Date Comments Niacin 07/07/2005 documented as of this encounter (statuses as of 08/17/2023) Medications Medication Sig Dispensed Refills Start Date End Date Status acetaminophen (TYLENOL) 325 MG Tablet Take 2 Tabs by mouth every 4 hours as needed for Pain. 60 Tab 0 02/15/2019 Active Multivitamin Adult Oral Tablet Take 1 Tab by mouth daily. 0 10/21/2019 Active Vitamin C 500 MG Oral Tablet (Ascorbic Acid) Take 1 Tablet by mouth in the morning. 0 Active Black Elderberry(Contreras-Fl ower) 575 MG Oral Capsule Take by mouth 1 Tablet daily . 0 Active Warfarin Sodium 6 MG Oral Tablet (Coumadin) TAKE ONE TABLET BY MOUTH EVERY MORNING OR DIRECTED BY THE ANTICO CLINIC. 90 Tablet 2 11/23/2022 Active oxyCODONE HCl 15 MG Oral Tablet (Roxicodone)Indicat ions:Spinal stenosis of lumbar region with neurogenic claudication,Chroni c pain syndrome,Osteoarthr itis of spine with radiculopathy, lumbar region Take 1 Tablet by mouth every 4 hours as needed for Pain, Moderate or Pain, Severe. 180 Tablet 0 07/26/2023 Active Enoxaparin Sodium 80 MG/0.8ML Injection Solution Prefilled Syringe (Lovenox)Indication s:Cerebrovascular disease, arteriosclerotic, post-stroke,PFO (patent foramen ovale) Inject full contents of one syringe ever 12 hours as instructed by anticoagulation clinic 8 mL 0 08/11/2023 Active Celecoxib 200 MG Oral Capsule (CeleBREX)Indicatio ns:Generalized osteoarthritis TAKE 1 CAPSULE BY MOUTH EVERY DAY 90 Capsule 1 08/12/2023 Active Atorvastatin Calcium 80 MG Oral Tablet (Lipitor)Indication s:History of CVA (cerebrovascular accident),Dyslipide gage, goal LDL below 70 TAKE 1 TABLET BY MOUTH EVERY DAY IN THE MORNING 90 Tablet 1 08/12/2023 Active Levothyroxine Sodium 50 MCG Oral Tablet (Levoxyl)Indication s:Acquired hypothyroidism TAKE 1 TABLET BY MOUTH IN THE MORNING 30 MINUTES BEFORE BREAKFAST OR OTHER MEDICATIONS 90 Tablet 1 08/12/2023 Active documented as of this encounter (statuses as [...] Dyslipidemia, goal LDL below 100 06/02/2010 12/19/2019 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 11/28/2004 [...] No Pre serve, 2-Dose Series (Moderna) 07/23/2020,06/24/2020 Pneumococcal Conjugate Vacc, 13 Valent (Prevnar) 11/18/2015 Pneumococcal Polysaccharide PPV23 (Pneumovax) 10/30/2017 Seasonal Influenza, PF, 6 M & above, IM , (FluLaval or Fluzone) 03/14/2018,03/17/2017 Seasonal Influenza, Quadriva lent, No Preserve, IM 03/16/2016,03/12/2015 Seasonal Influenza, Split, I IV3, With Preserve, Inj 02/06/2014,02/26/2013,02/02/2012,02/15,09/30/2010(Deferred: Patient Refused),02/03/2010,02/04/2009, 008,02/22/2007,03/09/2006 Seasonal Influenza, Trivalen t, Adjuvanted, 65+ yrs 02/20/2019 TDAP (age 11 and older)(Adacel) 06/07/2011 documented [...] encounter Miscellaneous Notes * Telephone Encounter - Mckenzie Miller, bacteriologist industrial - 08/17/2023 12:54 PM EDT P calling to get information for a formulary exception. It's for the enoxaparin. Mckenzie Lozano [employer] [facility] [address] [facility] [place] [address] 08/17/2023 12:55 PM documented in this encounter Plan of Treatment Upcoming Encounters Date Type Department Care Team (Late st Contact Info) Description 09/07/2023 9:50 AM EDT Anticoagulation Pharmacy, [place] [address] [place] [address] [place] [facility] [address] [place] [address] 10/18/2023 1:40 PM EDT Office [facility] [address] [place] [address] Reinier Thomas DO [address] [place] [address] 11/15/2023 10:30 AM EDT Office Visit Orthopaedics, [facility] [address] [place] [address] Alexei Naylor PA-C [address] [place] [address] 12/12/2023 1:40 PM EDT Office [facility] [address] [place] [phone] Osmin Byrd PA-C [address] [place] [address] Health Maintenance Due Date Last Done Comments [...] this encounter Medical Devices Implanted Type Area Sample Steamer Device Identifier Shelf Expiration Date Model / Serial / Lot Graft Cervical 6x8 [id number] - [id number] - [id number] Implanted:Qt y: 1 on 03/19/2018 by Ubaldo Johnson MD at OR [facility] Tissue - Human N/A: Spine Cervical LIFENET 08/01/2022 [id number] / [id number] / [id number] Graft Cervical 6x8 [id number] - [id number] - [id number] Implanted:Qt y: 1 on 03/19/2018 by Ubaldo Johnson MD at OR [facility] Tissue - Human N/A: Spine Cervical LIFENET 04/19/2022 [id number] / [id number] / [id number] Plate Cerv 2 Lev 34mm Std - [id number] Implanted:Qt y: 1 on 03/19/2018 by Ubaldo Johnson MD at OR [facility] N/A: Spine Cervical [employer] [id number] / / Description:from set Screw St Efrain Slf Drl 4.0x14mm - [id number] Implanted:Qt y: 3 on 03/19/2018 by Ubaldo Johnson MD at OR [facility] N/A: Spine Cervical [employer] [id number] / / Description:from set Screw St Efrain Slf Drl 4.0x16mm - [id number] Implanted:Qt y: 3 on 03/19/2018 by Ubaldo Johnson MD at OR [facility] N/A: Spine Cervical [employer] [id number] / / Description:from set Mesh Perfix Plug Lg [id number] - [id number] Implanted:Qt y: 1 on 02/15/2019 by Josué Kelley MD at OR [facility] N/A: Naz CAMACHO BARD : DAVOL [id number] 03/11/2023 [id number] / / [id number] Lead Kit Trial [id number] 50cm - [id number] - [id number] Implanted:Qt y: 1 on 11/02/2022 by Franklin Olmos DO at OR [facility] N/A: Back [employer] : PAIN MGMT 08/05/2024 [id number] / [id number] / [id number] documented as of this encounter Advance Directives Latest Code Status [...] michelle occurred with: Not Discussed Care Teams Plate Fitter Relationship Specialty Start Date End Date Reinier Thomas DO [address] [place], [place] [address] [phone] PCP - General Internal Medicine 03/17/21 documented as of this encounter
--- OUTSIDE RECORDS SUMMARY | 2023-08-24 22:21 | External Medical Summary | Summary of Care ---
Author Name Unknown Organization [facility] Address [address] [place] [address] Phone [phone] Care Team Providers Care Toilet Products Molder Name Role Phone Reinier Thomas DO Primary Care Provid er Reason for Visit * Reason Comments NEW PATIENT Joint Pain Bilat CMC * Evaluate & Treat - Unlimited Visits (Within 10 days (routine)) - Authorized Specialty Diagnoses / Procedures Referred By Tricia scott Referred To Contact Sports Medicine / Orthopedics Diagnoses Primary osteoarthritis of both hands Reinier Thomas DO [address] [place] [address] Referral ID Status Reason Start Date Expiration Date Visits Requested Visits Authorized [id number] Authorized Specialty Services Required 08/11/2023 999 [id number] Encounter Details Date Type Department Care Team (Late st Contact Info) Description 08/16/2023 9:30 AM EDT Office Visit Orthopaedics, [place] [address] [place] [address] Alexei Naylor PA-C [address] [place] [address] Bilateral primary osteoarthritis of first carpometacarpal joints* Allergies Active Allergy Reactions Criticality Noted Date Comments Niacin 07/07/2005 documented as of this encounter (statuses as of 08/16/2023) Medications Medication Sig Dispensed Refills Start Date [...] BY THE ANTICOAG CLINIC. 90 Tablet 2 11/23/2022 Active oxyCODONE [...] OTHER MEDICATIONS 90 Tablet 1 08/12/2023 Active Hospital, Clinic, or Other Facility Administered Medication Ordered Dose Route Frequency Start Date End Date Status lidocaine 1% 1 mL - triamcinolone acetonide 40 mg/mL 1 mL inj 2 mLIndications:Bilateral primary osteoarthritis of first carpometacarpal joints 2 mL IJ ONCE 08/16/2023 08/16/2023 Ended lidocaine 1% 1 mL - triamcinolone acetonide 40 mg/mL 1 mL inj 2 mLIndications:Bilateral primary osteoarthritis of first carpometacarpal joints 2 mL IJ ONCE 08/16/2023 08/16/2023 Ended documented as of this encounter (statuses as of 08/16/2023) Active Problems Problem Noted Date Diagnosed Date [...] as of this encounter (statuses as of 08/16/2023) Resolved Problems Problem Noted Date Diagnosed Date Resolved Date History of CVA (cerebrovascular accident) 03/19/2018 03/29/2021 Prediabetes 06/27/2017 07/31/2017 Overview: Per Prediabetes protocol #1 Dyslipidemia, goal LDL below 100 06/02/2010 12/19/2019 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 Denies triggering, numbness or tingling in hand. Admits to pain with pinch walking dragline oiler movements, pain rated 3/10 today PE: GENERAL, PLEASANT AND COOPERATIVE ON EXAM TODAY Mild A1 ros TENDERNESS ON EXAM bilateral No active triggering Mildly positive grind test on left Full ROM N/V grossly intact to light touch Xray hands: Done 02/09/2023, images and report reviewed by me and agree with report c/w FINDINGS: Bones/joints: There is no evidence for fracture or dislocation. Interphalangeal, intercarpal and radiocarpal articular joint space narrowing is noted. Soft tissues: Normal. IMPRESSION IMPRESSION: Degenerative change. IMPRESSION: Bilateral CMC DJD PLAN: Discussed treatment options including repeat cortisone injection here today, u/s guided injection which would provide more accuracy, and CMC arthroplasty. Patient is having lumbar surgery next week, will defer any surgical consult for the hands. Patient opts to proceed with cortisone injection bilateral CMC today. Educated patient on steroid flare reaction, risk of infection as well as signs and symptoms of infection. Advised patient to rest following the injection and ice the hands. Call office with any concerns. Follow up 3 months repeat injection prn Orthopaedic Procedure Clinic Note Date of Procedure: 08/16/2023 PROCEDURE NOTE INTRAARTICULAR INJECTION SITE: first CMC joint bilateral DIAGNOSIS: Bilateral CMC DJD Lidocaine 1.0 % 1 mL Triamcinolone Acetonide 40 mg/mL 1 mL A timeout was called immediately prior to the procedure, to confirm the correct patient, procedure,and site. The site was marked by the physician prior to the procedure. Site was identified: digit: specify site: bilateral first CMC ROUTE: Intra-articular I injected the patient documented in this encounter Nursing Notes * Magdalena Cevallos LPN - 08/16/2023 9:02 AM EDT Bilat CMC pain documented in this encounter Plan of Treatment Upcoming Encounters Date Type Department Care Team (Late st Contact Info) Description 09/07/2023 9:50 AM EDT Anticoagulation Pharmacy, [place] [address] [place] [address] [facility] [address] [place] [address] 10/18/2023 1:40 PM EDT Office Visit [facility] [address] [place] [address] Reinier Thomas DO [address] [place] [address] 11/15/2023 10:30 AM EDT [facility] [address] [place] [address] Alexei Naylor PA-C [address] [place] [address] 12/12/2023 1:40 PM EDT Office Visit Dermatology [facility] [address] [place] [address] Osmin Byrd PA-C [address] [place] [address] Scheduled Orders Name Type Priority Associated Diagnoses Orde r Schedule ARTHROCENT ASP AND/OR INJ SMALL JX /BURSA W/O US Procedures Routine Bilateral primary osteoarthritis of first carpometacarpal joints Ordered: 08/16/2023 Health Maintenance Due Date Last Done Comments [...] this encounter Medical Devices Implanted Type Area Circuit Board Inspector Device Identifier Shelf Expiration Date Model / Serial / Lot Graft Cervical 6x8 [id number] - [id number] - [id number] Implanted:Qt y: 1 on 03/19/2018 by Ubaldo Johnson MD at [place] [facility] Tissue - Human N/A: Spine Cervical LIFENET 08/01/2022 [id number] / [id number] / [id number] Graft Cervical 6x8 Kg3x-H94 - [id number] - [id number] Implanted:Qt y: 1 on 03/19/2018 by Ubaldo Johnson MD at [place] [facility] Tissue - Human N/A: Spine Cervical LIFENET 04/19/2022 [id number] / [id number] / [id number] Plate Cerv 2 Lev 34mm Std - [id number] Implanted:Qt y: 1 on 03/19/2018 by Ubaldo Johnson MD at [place] [facility] N/A: Spine Cervical [employer] [id number] / / Description:from set Screw St Efrain Slf Drl 4.0x14mm - [id number] Implanted:Qt y: 3 on 03/19/2018 by Ubaldo Johnson MD at [place] [facility] N/A: Spine Cervical [employer] [id number] / / Description:from set Screw St Efrain Slf Drl 4.0x16mm - [id number] Implanted:Qt y: 3 on 03/19/2018 by Ubaldo Johnson MD at [place] [facility] N/A: Spine Cervical [employer] [id number] / / Description:from set Mesh Perfix Plug Lg 0956479 - [id number] Implanted:Qt y: 1 on 02/15/2019 by Josué Kelley MD at [place] [facility] N/A: Naz CAMACHO BARD : DAVOL [id number] 03/11/2023 [id number] 70 / / [id number] Lead Kit Trial [id number] 50cm - [id number] - [id number] Implanted:Qt y: 1 on 11/02/2022 by Franklin Olmos DO at OR [facility] N/A: Back [employer] : PAIN MGMT 08/05/2024 [id number] 650E0 / [id number] / [id number] documented as of this encounter Visit Diagnoses Diagnosis Bilateral primary osteoarthritis of first carpometacarpal joints- Primary documented in this encounter Administered Medications Inactive Administered Medications - up to 3 most recent administrations Medication Order MAR Action Action Date Dose Rate Site lidocaine 1% 1 mL - triamcinolone acetonide 40 mg/mL 1 mL inj 2 mL 2 mL, Injection, ONCE, On Mon08/16/23 at 0945, For 1 dose, lidocaine 1% 1 mL - triamcinolone acetonide 40 mg/mL 1 mL inj TOTAL VOLUME 2 mL SYRINGE REFRIGERATE and SHAKE WELL Given 08/16/2023 9:11 AM EDT 2 mL Hand Right lidocaine 1% 1 mL - triamcinolone acetonide 40 mg/mL 1 mL inj 2 mL 2 mL, Injection, ONCE, On Mon08/16/23 at 0945, For 1 dose, lidocaine 1% 1 mL - triamcinolone acetonide 40 mg/mL 1 mL inj TOTAL VOLUME 2 mL SYRINGE REFRIGERATE AND SHAKE WELL Given 08/16/2023 9:11 AM EDT 2 mL Hand Left documented in this encounter Advance Directives Latest [...] michelle occurred with: Not Discussed Care Teams Toilet Products Molder Relationship Specialty Start Date End Date Reinier Thomas DO [address] [place] [address] PCP - General Internal Medicine 03/17/21 documented as of this encounter
--- OUTSIDE RECORDS SUMMARY | 2023-08-24 22:21 | External Medical Summary | Summary of Care ---
Author Name Unknown Organization [facility] Address [address] [place] [address] Phone [phone] Care Team Providers Care Automation Machine Builder Name Role Phone Reinier Thomas DO Primary Care Provid er Reason for Visit * Reason Onset Date Comments Other 08/17/2023 Enoxaparin Sodiu m 80 MG/0.8ML Injection Solution Prefilled Syringe (Lovenox) Encounter Details Date Type Department Care Team ([facility] st Contact Info) Description 08/17/[address] [address] Reinier Thomas DO [address] [place] [address] Other (Enoxaparin Sodium 80 MG/0.8ML Injec... 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 Please advise of correct dosing by calling [facility] at [phone] ThanksMarce Rear Admiral III [facility] ([facility]) 08/17/2023,1:57 PM * Telephone Encounter - Gaviota Ortega CPhT - 08/17/2023 1:30 PM EDT [facility] calling in with medication questions regarding Enoxaparin Sodium 80 MG/0.8ML Injection SolutionPrefilled Syringe (Lovenox). Pt is being seen by [facility]. Transferred [facility] . Thank you, Gaviota Ortega [facility] [facility] 08/17/2023, 1:31 PM documented in this encounter Plan of Treatment Upcoming Encounters Date Type Department Care Team ([facility] st Contact Info) Description 09/07/2023 9:50 AM EDT Anticoagulation Pharmacy, [place] [address] [place] [address] [place], [facility] [address] [place] [address] 10/18/2023 1:40 PM EDT Office Visit [facility] [address] [place] [address] Reinier Thomas DO [address] [place] [address] 11/15/2023 10:30 AM EDT Office Visit Orthopaedics, [place] [address] [place] [address] Alexei Naylor PA-C [address] [place] [address] 12/12/2023 1:40 PM EDT Office Visit Dermatology [facility] [address] [place] [address] Osmin Byrd PA-C [address] [place] [address] Health Maintenance Due Date Last Done Comments [...] this encounter Medical Devices Implanted Type Area Office Bookkeeper Device Identifier Shelf Expiration Date Model / Serial / Lot Graft Cervical 6x8 [id number] - [id number] - [id number] Implanted:Qt y: 1 on 03/19/2018 [place]baldo [place] [facility] - Human N/A: Spine Cervical LIFENET 08/01/2022 [id number] / [id number] / [id number] Graft Cervical 6x8 [id number] - [id number] - [id number] Implanted:Qt y: 1 on 03/19/2018 by Ubaldo Johnson [place] [facility] [place] - Human N/A: Spine Cervical LIFENET 04/19/2022 [id number] / [id number] / [id number] Plate Cerv 2 Lev 34mm Std - [id number] Implanted:Qt y: 1 on 03/19/2018 by Ubaldo Johnson [place] [facility] [place] N/A: Spine Cervical [employer] [facility] [employer] [id number] / / Description:from set Screw St Efrain Slf Drl 4.0x14mm - [id number] Implanted:Qt y: 3 on 03/19/2018 by Ubaldo Jhonson MD [place] [facility] [place] N/A: Spine Cervical [employer] [facility] [employer] [id number] / / Description:from set Screw St Efrain Slf Drl 4.0x16mm - [id number] Implanted:Qt y: 3 on 03/19/2018 by Ubaldo Johnson MD [place] [facility] [place] [place] N/A: Spine Cervical [employer] [facility] [id number] / / Description:from set Mesh Perfix Plug Lg [id number] - [id number] Implanted:Qt y: 1 on 02/15/2019 by Josué Kelley [place] [facility] [place] [place] N/A: Naz CAMACHO BARD : DAVOL [id number] 03/11/2023 [id number] 70 / / [id number] Lead Kit Trial [id number] 50cm - [id number] - [id number] Implanted:Qt y: 1 on 11/02/2022 by Franklin Olmos DO at OR [facility] N/A: Back [employer] : PAIN MGMT 08/05/2024 [id number] [id number] / [id number] / [id number] documented as of this encounter Visit Diagnoses [...] michelle occurred with: Not Discussed Care Teams Automation Machine Builder Relationship Specialty Start Date End Date Reinier Thomas DO [address] [place] [address] [phone] (work) PCP - General Internal Medicine 03/17/21 documented as of this encounter
--- OUTSIDE RECORDS SUMMARY | 2023-08-24 22:21 | External Medical Summary | Summary of Care ---
Author Name Unknown Organization [facility] Address [address] [place] [address] Phone [phone] Care Team Providers Care Fiber Optics Supervisor Name Role Phone Reinier Thomas DO Primary Care Provid er Reason for Visit * Reason Onset Date Comments Other 08/17/2023 Enoxaparin Sodiu m 80 MG/0.8ML Injection Solution Prefilled Syringe (Lovenox) Encounter Details Date Type Department Care Team ([facility] st Contact Info) Description 08/17/[address] [phone] Reinier Thomas DO [address] [place] [phone] Other (Enoxaparin Sodium 80 MG/0.8ML Injec... 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 Thank you, Marci Oshea CPhT Welfare Project Manager Party Plan Sales Unit Advisor [facility] ([facility] (Formerly Telepharmacy) 08/18/2023,12:25 PM * Telephone Encounter - Dianna Pereyra CPhT - 08/18/2023 9:43 AM EDT Patients insurance would like to inform the office that Enoxaprin is denied because needs to try one formulary alternative. They will fax this info to the office, please review and resubmit if appropriate. Thank you, Dianna Pereyra CPhT Satellite Installation Technician [facility] ([facility])(formerly telepharmacy) 08/18/2023,9:43 AM * Telephone Encounter - Mona Melendez [facility] - 08/18/2023 8:09 AM EDT Returned call [...] 5:06 PM EDT Christophe calling as her [facility] have even more questions regarding [...] (porcine) (1000 unit/ml solution, 5000 unit/ml solution, 27283 unit/ml solution, 26112 unit/ml solution), warfarin or jantoven tablet Please call Christophe [phone], as it is needed back by 9:30 oon 08/18/23 Thank You, Padma Thompson [facility] Satellite Installation Technician III [facility] ([facility]) (Formerly Telepharmacy) 08/17/2023, 5:07 PM * Telephone Encounter - Mona Melendez [facility] - 08/17/2023 4:11 PM EDT Returned call to Christophe and reviewed that it should be for the generic lovenox (enoxaparin). Mona Melendez PharmD, IFEANYI Clinical Pharmacist Medication Therapy Disease Management 08/17/2023, 4:12 PM * Telephone Encounter - Emelina Rankin PHARM Tech - 08/17/2023 4:00 PM EDT Christophe calling from [facility]. They need clarification on if Enoxaparin Sodium 80 MG/0.8ML Injection Solution Prefilled Syringe (Lovenox) is brand preferred or if it's to be generic. Please return her call at [phone]. EOC#: [id number] Thank you, Emelina Rankin, Welfare Project Manager [facility] ([facility]) (Formerly [...] PM * Telephone Encounter - Marce Blake rooms director - 08/17/2023 1:57 PM EDT [place] from [facility] calling to advise Verbal info given states Lovenox 70mg, but this med only comes in40,60 and 80mg syringes. Please advise of correct dosing by calling [facility] at [phone] Thanks, Marce Blake Satellite Installation Technician III [facility]) 08/17/2023,1:57 PM * Telephone Encounter - Gaviota Ortega CPhT - 08/17/2023 1:30 PM EDT [facility] calling in with medication questions regarding Enoxaparin Sodium 80 MG/0.8ML Injection SolutionPrefilled Syringe (Lovenox). Pt is being seen by [facility]. Transferred [facility] . Thank you, Gaviota Ortega Welfare Project Manager [facility] 08/17/2023, 1:31 PM documented in this encounter Plan of Treatment Upcoming Encounters Date Type Department Care Team (Late st Contact Info) Description 09/07/2023 9:50 AM EDT Anticoagulation Pharmacy, [place] [address] [place] [address] [facility] [address] [place] [address] 10/18/2023 1:40 PM EDT Office Visit [facility] [address] [place] [phone] Reinier Thomas, [address] [place] [address] 11/15/2023 10:30 AM EDT Office Visit Orthopaedics, [facility] [address] [place] [address] Alexei Naylor PA-C [address] [place] [address] 12/12/2023 1:40 PM EDT Office Visit Dermatology [facility] [address] [place] [phone] Osmin Byrd PA-C [address] [place] [address] Health Maintenance Due Date Last Done Comments [...] this encounter Medical Devices Implanted Type Area Control Area Operator Device Identifier Shelf Expiration Date Model / Serial / Lot Graft Cervical 6x8 [id number] - [id number] - [id number] Implanted:Qt y: 1 on 03/19/2018 by Ubaldo Johnson MD [place] [facility] Tissue - Human N/A: Spine Cervical LIFENET 08/01/2022 [id number] / [id number] / [id number] Graft Cervical 6x8 [id number] - [id number] - [id number] Implanted:Qt y: 1 on 03/19/2018 by Ubaldo Johnson MD [place] [facility] Tissue - Human N/A: Spine Cervical LIFENET 04/19/2022 [id number] / [id number] / [id number] Plate Cerv 2 Lev 34mm Std - [id number] Implanted:Qt y: 1 on 03/19/2018 by Ubaldo Johnson MD at [place] [facility] N/A: Spine Cervical [employer] [facility] [id number] / / Description:from set Screw St Efrain Slf Drl 4.0x14mm - [id number] Implanted:Qt y: 3 on 03/19/2018 by Ubaldo Johnson MD at [place] [facility] N/A: Spine Cervical [employer] [facility] [employer] [id number] / / Description:from set Screw St Efrain Slf Drl 4.0x16mm - [id number] Implanted:Qt y: 3 on 03/19/2018 by Ubaldo Johnson MD at [place] [facility] N/A: Spine Cervical [employer] [facility] [employer] [id number] / / Description:from set Mesh Perfix Plug Lg [id number] - [id number] Implanted:Qt y: 1 on 02/15/2019 by Josué Kelley MD at [place] [facility] N/A: Naz ENRIQUEZ : LUZ MARINA [id number] 03/11/2023 [id number] / / [id number] Lead Kit Trial [id number] 50cm - [id number] - [id number] Implanted:Qt y: 1 on 11/02/2022 by Franklin Olmos DO at OR [facility] N/A: Back [employer] : PAIN MGMT 08/05/2024 [id number] / [id number] / [id number] documented as of this encounter Visit Diagnoses [...] michelle occurred with: Not Discussed Care Teams Fiber Optics Supervisor Relationship Specialty Start Date End Date Reinier Thomas DO [address] [place] [address] PCP - General Internal Medicine 03/17/21 documented as of this encounter
--- OUTSIDE RECORDS SUMMARY | 2023-08-24 22:22 | External Medical Summary | Summary of Care ---
Author Name Unknown Organization [facility] Address [address] [place] [address] Phone [phone] Care Team Providers Care Boatswains Mate Name Role Phone Reinier Thomas DO Primary Care Provid er Reason for Visit * Reason Onset Date Comments Fax 08/07/2023 Encounter Details Date Type Department Care Team ([facility] st Contact Info) Description 08/07/[address] [phone] Reinier Thomas DO [address] [place] [phone] Fax Allergies Active Allergy Reactions Criticality Noted Date Comments Niacin 07/07/2005 documented as of this encounter (statuses as of 08/07/2023) Medications Medication Sig Dispensed Refills Start Date [...] mouth in the morning. 0 Active Black Elderberry(Contreras-Elias wer) 575 MG Oral Capsule Take by mouth 1 Tablet daily . 0 Active Warfarin Sodium 6 MG Oral Tablet (Coumadin) TAKE ONE TABLET BY MOUTH EVERY MORNING OR DIRECTED BY THE ANTICO CLINIC. 90 Tablet 2 11/23/2022 Active Atorvastatin Calcium 80 MG Oral Tablet (Lipitor)Indications :History of CVA (cerebrovascular accident),Dyslipidem ia, goal LDL below 70 Take 1 Tablet by mouth in the morning. 90 Tablet 2 12/07/2022 Active Levothyroxine Sodium 50 MCG Oral Tablet (Levoxyl)Indications :Acquired hypothyroidism 1 TABLET BY MOUTH IN THE MORNING 30 MINUTES BEFORE BREAKFAST OR OTHER MEDICATIONS 90 Tablet 2 12/07/2022 Active Celecoxib 200 MG Oral Capsule (CeleBREX)Indication s:Generalized osteoarthritis TAKE ONE CAPSULE BY MOUTH DAILY 90 Capsule 1 03/08/2023 Active HYDROcodone-Acetamin ophen 10-325 MG Oral TabletIndications:Sp inal stenosis of lumbar region with neurogenic claudication Take 1 Tablet by mouth every 4 hours as needed for Pain, Moderate. 180 Tablet 0 05/10/2023 Active oxyCODONE HCl 15 MG Oral Tablet (Roxicodone)Indicati ons:Spinal stenosis of lumbar region with neurogenic claudication,Chronic pain syndrome,Osteoarthri tis of spine with radiculopathy, lumbar region Take 1 Tablet by mouth every 4 hours as needed for Pain, Moderate or Pain, Severe. 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 * Telephone Encounter - Sissy Hemphill OSA - 08/07/2023 3:56 PM EDT Unable to reach * Telephone Encounter - Megan Correa OSA - 08/07/2023 3:32 PM EDT Received a call asking if fax was received by office. Name/Company sending fax: Patient What fax is pertaining to: pre op clearance Date(s) they sent request: 08/07/23 Verified fax number they are sending to is correct (Y or N): Y Callback Number for the clinic to call to verified if fax was received: [phone] documented in this encounter Plan of Treatment Upcoming Encounters Date Type Department Care Team ([facility] st Contact Info) Description 08/11/2023 8:00 AM EDT Office Visit [address] [phone] Reinier Thomas, [address] [address] 08/22/2023 10:30 AM EDT Anticoagulation Pharmacy, [place] [address] [place] [address] [facility] [place] [address] 10/18/2023 1:40 PM EDT Office Visit [address] [phone] Reinier Thomas, [address] [address] 12/12/2023 1:40 PM EDT Office Visit Dermatology [facility] [address] [place] [address] Osmin Byrd PA-C [address] [place] [address] Health Maintenance Due Date Last Done Comments Cologuard 1993 Fecal Occult Blood Test 1993 Sigmoidoscopy 1993 Zoster Vaccines (1 of 2) 1998 DTaP,Tdap,and Td Vaccines (2 - Td or Tdap) 06/07/2021 06/07/2011, 02/08/2005 Colonoscopy 11/03/2021 11/04/2011, 10/14, 02/20/2006 Colorectal Cancer Screening 11/03/2021 COVID-19 Vaccine ( season) 2023 07/23/2020, 06/24/2020 Influenza Vaccine (FLU shot) (#1) 2023 02/20/2019, 03/14/2018, 03/17/2017, Additional history exists Depression Screening 01/12/2024 01/11/2023 TSH 01/13/2024 01/12/2023, 06/16, 03/29/2021, Additional history exists Pneumococcal Vaccine: 65+ Years [...] this encounter Medical Devices Implanted Type Area Hydrocrane Operator Device Identifier Shelf Expiration Date Model / Serial / Lot Graft Cervical 6x8 [id number] - [id number] - [id number] Implanted:Qt y: 1 on 03/19/2018 by Ubaldo Johnson MD at [place] [facility] Tissue - Human N/A: Spine Cervical L[employer]ET 08/01/2022 [id number] / [id number] / [id number] Graft Cervical 6x8 [id number] - [id number] - [id number] Implanted:Qt y: 1 on 03/19/2018 by Ubaldo Johnson MD at OR [facility] Tissue - Human N/A: Spine Cervical [employer]IF[employer]ET 04/19/2022 [id number] / [id number] / [id number] Plate Cerv 2 Lev 34mm Std - [id number] Implanted:Qt y: 1 on 03/19/2018 by Ubaldo Johnson MD at OR [facility] N/A: Spine Cervical [employer] [id number] / / Description:from set Screw St Efrain Slf Drl 4.0x14mm - [id number] Implanted:Qt y: 3 on 03/19/2018 by Ubaldo Johnson MD at OR [facility] N/A: Spine Cervical [employer] [id number] / / Description:from set Screw St Efrain Slf Drl 4.0x16mm - [id number] Implanted:Qt y: 3 on 03/19/2018 by Ubaldo Johnson MD at OR [facility] N/A: Spine Cervical [employer] [id number] / / Description:from set Mesh Perfix Plug Lg [id number] - [id number] Implanted:Qt y: 1 on 02/15/2019 by Josué Kelley MD at OR [facility] N/A: Naz CAMACHO BARD : LUZ MARINA [id number] 03/11/2023 [id number] / / [id number] Lead Kit Trial [id number] 50cm - [id number] - [id number] Implanted:Qt y: 1 on 11/02/2022 by Franklin Olmos DO at OR [facility] N/A: Back [employer] : PAIN MGMT 08/05/2024 [id number] 650E0 / [id number] / [id number] documented as of this encounter Advance Directives [...] michelle occurred with: Not Discussed Care Teams Boatswains Mate Relationship Specialty Start Date End Date Reinier Thomas DO [address] [place] [address] PCP - General Internal Medicine 03/17/21 documented as of this encounter
--- OUTSIDE RECORDS SUMMARY | 2023-08-24 22:22 | External Medical Summary | Summary of Care ---
Author Name Unknown Organization [facility] Address [address] [place] [address] Phone [phone] Care Team Providers Care Obgyn Hospitalist Physician Name Role Phone Reinier Thomas DO Primary Care Provid er Reason for Referral * Evaluate & Treat - Unlimited Visits (Within 10 days (routine)) - Authorized Specialty Diagnoses / Procedures Referred By Tricia scott Referred To Contact Sports Medicine / Orthopedics Diagnoses Primary osteoarthritis of both [place] [address] Referral ID Status Reason Start Date Expiration Date Visits Requested Visits Authorized [id number] Authorized Specialty Services Required 08/11/[phone] Question Answer Referral Priority Within 10 days (routine) Where should this appointment be scheduled? [facility] What body part is the patient being seen for? Hand What condition is the patient being seen for? Arthritis including related infection * Ancillary Services (Within 30 days (routine)) - Authorized Specialty Diagnoses / Procedures Referred By Contdionna t Referred To Contact Gastroenterology Diagnoses Special screening for malignant neoplasms, colon Reinier Thomas DO [address] [place] [address] Referral ID Status Reason Start Date Expiration Date Visits Requested Visits Authorized [id number] Authorized Ancillary Services Required 08/11/[phone] Question Answer Referral Priority Within 30 days (routine) Where should this appointment be scheduled? [facility] Comments ALERT: Do not order for pediatric patients (18 years or younger). Cancel off screen and order PEDS GASTROENTEROLOGY CONSULT (Type: 1 visit only-Evaluate and Treat) The following Pt. Instructions are available: - Gastro Colonoscopy Prep Instructions [[id number]] - Gastro Colonoscopy Prep Instructions (Cymraes Version) [[id number]] Go to the Pt. Instructions section within the Visit Navigator to access. Colonoscopy ASGE Guidelines: Average risk screening (begin at age 50, 10 year intervals) ADDITIONAL INFORMATION 1. Is the patient on Coumadin? Yes--Coumadin can be stopped for 5 days 2. Is the patient on Pradaxa? No Reason for Visit * Reason Comments pre-op exam Patient is here for a preop exam.Patient sattes he would like to know about shots in his hands. Encounter Details Date Type Department Care Team (Latest Contact Info) Description 08/11/2023 8:00 AM EDT Office Visit [address] [id number] Reinier Thomas DO [address] [place] [id number] Special screening for malignant neoplasms, colon*; CEREBROVASCULAR DZ, POST-STROKE; Acquired hypothyroidism; Iliac aneurysm (HCC); BPH without obstruction/lower urinary tract symptoms; Chronic pain syndrome; Spinal stenosis of lumbar region with neurogenic claudication; Osteoarthritis of spine with radiculopathy, lumbar region; GENERAL OSTEOARTHROSIS; Hemorrhoids, external without complications; Primary osteoarthritis of both hands Allergies Active Allergy Reactions Criticality Noted Date Comments Niacin 07/07/2005 documented as of this encounter (statuses as of 08/11/2023) Medications Medication Sig Dispensed Refills Start Date [...] [facility]. 90 Tablet 2 11/23/2022 Active Atorvastatin Calcium 80 MG Oral Tablet (Lipitor)Indication s:History of CVA (cerebrovascular accident),Dyslipide gage, goal LDL below 70 Take 1 Tablet by mouth in the morning. 90 Tablet 2 12/07/2022 Active Levothyroxine Sodium 50 MCG Oral Tablet (Levoxyl)Indication s:Acquired hypothyroidism 1 TABLET BY MOUTH IN THE MORNING 30 MINUTES BEFORE BREAKFAST OR OTHER MEDICATIONS 90 Tablet 2 12/07/2022 Active Celecoxib 200 MG Oral Capsule (CeleBREX)Indicatio ns:Generalized osteoarthritis TAKE ONE CAPSULE BY MOUTH DAILY 90 Capsule 1 03/08/2023 Active oxyCODONE HCl 15 MG Oral Tablet (Roxicodone)Indicat ions:Spinal stenosis of lumbar region with neurogenic claudication,Chroni c pain syndrome,Osteoarthr itis of spine with radiculopathy, lumbar region Take 1 Tablet by mouth every 4 hours as needed for Pain, Moderate or Pain, Severe. 180 Tablet 0 07/26/2023 Active HYDROcodone-Acetami nophen 10-325 MG Oral TabletIndications:S александр stenosis of lumbar region with neurogenic claudication Take 1 Tablet by mouth every 4 hours as needed for Pain, Moderate. 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 current use of ant icoagulant therapy [...] as of this encounter (statuses as of 08/11/2023) Immunizations Name Administration Dates Next Due COVID-19 [...] on file documented as of this encounter Last Filed Vital Signs Vital Sign Reading Time Taken Comments Blood Pressure 106/64 08/11/2023 7:53 AM EDT Pulse 70 08/11/2023 7:53 AM EDT Temperature 36.3 C (97.3 F) 08/11/2023 7:53 AM ED T Respiratory Rate 18 08/11/2023 7:53 AM EDT Oxygen Saturation 98% 08/11/2023 7:53 AM EDT Inhaled Oxygen Concentration - - Weight 75 kg (165 lb 6.4 oz) 08/11/2023 7:53 AM EDT Height - - Body Mass Index 22.43 02/22/2023 9:11 AM EDT documented in this encounter Functional Status Functional Status Response [...] No 03/19/2018 documented as of this encounter Patient Instructions * Patient Instructions* Esperanza Frausto LPN - 08/11/2023 7:51 AM EDT Images from the original note were not included. Colorectal Cancer Screening Colorectal cancer (cancer in the colon or rectum) is a leading cause of cancer deaths in the [place] But it doesnt have to be. When this cancer is found and removed early, the chances of a full recovery are very good. Because colorectal cancer rarely causes symptoms in its early stages, screening for the disease is important. Its even more crucial if you have risk factors for the disease. Learn more about colorectal cancer and its risk factors. Then talk to your healthcare provider about being screened. You could be saving your own life. Risk factors for colorectal cancer Your risk of having colorectal cancer increases if you: Are 50 years of age or older Have a family history or personal history of colorectal cancer or polyps Have a personal history of type 2 diabetes, Crohns disease, or ulcerative colitis Have an inherited genetic syndrome like Bermudez syndrome (also known as HNPCC) or familial adenomatous polyposis (FAP) Are very overweight Are not physically active Smoke Drink a lot of alcohol Eat a lot of red or processed meat The colon and rectum Waste from food you eat enters the colon from the small intestine. As it travels through the colon,the waste (stool) loses water and becomes more solid. Intestinal muscles push it toward the sigmoid--the last section of the colon. Stool then moves into the rectum, where its stored until its ready to leave the body during a bowel movement. How cancer develops Polyps are growths that form on the inner lining of the colon or rectum. Most are benign, which means they arent cancerous. But over time, some polyps can become cancer (malignant). This happens when cells in these polyps begin growing abnormally. In time, malignant cells invade more and more ofthe colon and rectum. The cancer may also spread to nearby organs or lymph nodes or to other parts of the body. Finding and removing polyps can help prevent cancer from ever forming. Your screening Screening means looking for a health problem before you have symptoms. During screening for colorectal cancer, your healthcare provider will ask about your health history, examine you, and do one or more tests. History and exam The history and exam involve the following: Health history. Your healthcare provider will ask about your health history. Mention if a family member has had colon cancer or polyps. Also mention any health problems you have had in the past. Digital rectal exam (MAIN). During a MAIN, the healthcare provider inserts a lubricated gloved fingerinto the rectum. The test is painless and takes less than a minute. Healthcare providers agree thatthis test alone is not enough to screen for colorectal cancer. Screening test choices: Fecal occult blood test (FOBT) or fecal immunochemical test (FIT) These tests check for occult blood in stool (blood you cant see). Hidden blood may be a sign of colon polyps or cancer. A small sample of stool is tested for blood in a laboratory. Most often, youcollect this sample at home using a kit your healthcare provider gives you. Follow the instructionscarefully for using this kit. You might need to avoid certain foods and medicines before the test, as directed. Barium enema with contrast (double-contrast barium enema) This test uses X-rays to provide images of the entire colon and rectum. The day before this test, you will need to do a bowel prep to clean out the colon and rectum. A bowel prep is a liquid diet plus strong laxatives or enemas. You will be awake for the test, but you may be given medicine to help you relax. At the start of the test, a radiologist (a healthcare provider who specializes in imagingtests) places a soft tube into the rectum. The tube is used to fill the colon with a contrast liquid (barium) and air. This can be uncomfortable for some people. The liquid helps the colon show up clearly on the X-rays. Because the test uses X-rays, it exposes you to a small amount of radiation. Virtual colonoscopy This exam is also called a CT colonography. It uses a series of X-ray photographs to create a 3-D view of the colon and rectum. The day before the test, you will need to do a bowel prep to clean out your colon. Your healthcare provider will give you instructions on how to do this. During the procedure, you will lie on a table that is part of a special X-ray machine called a CT scanner. A small tube will be placed into your rectum to fill the colon and rectum with air. This can be uncomfortable for some people. Then, the table will move into the machine and pictures will be taken of your colonand rectum. A computer will combine these photos to create a 3-D picture. Because the test uses X-rays, it exposes you to a small amount of radiation. Cologuard Cologuard is an easy to use, noninvasive colon cancer screening test that you can use in the privacy of your own home. It identifies altered DNA and/or blood in stool, which are associated with the possibility of colon cancer or precancer. DNA is continuously shed from cells in the intestinal lining, where it is passed into the stool. Ifcancer or precancer is present, abnormal cells will shed into the colon and stool along with normalcells. A molecular biology process is used to capture specific pieces of DNA for further analysis. Scope exams Here are two types of scope exams: Colonoscopy. This test can be used to find and remove polyps anywhere in the colon or rectum. The day before the test, you will do a bowel prep. This is a liquid diet plus a strong laxative solution or an enema. The bowel prep will cleanse your colon. You will be given instructions for this. Just before the test, you are given a medicine to make you sleepy. Then, a long, flexible, lighted tube called a colonoscope is gently inserted into the rectum and guided through the entire colon. Images ofthe colon are viewed on a video screen. Any polyps that are found are removed and sent to a lab fortesting. If a polyp cant be removed, a sample of tissue is taken and the polyp might be removed l ater during surgery. You will need to bring someone with you to drive you home after this test. Sigmoidoscopy. This test is similar to colonoscopy, but focuses only on the sigmoid colon and rectum. As with colonoscopy, bowel prep must be done the day before this test. It might not need to be ascomplete as the bowel prep for a colonoscopy. You are awake during the procedure, but you may be given medicine to help you relax. During the test, the healthcare provider guides a thin, flexible, lighted tube called a sigmoidoscope through your rectum and lower colon. The images are displayed on avideo screen. Polyps are removed, if possible, and sent to a lab for testing. Colonoscopy is the only screening test that lets your healthcare provider see the entire colon and rectum. This test also lets your healthcare provider remove any pieces of tissue that need to be looked at by a lab. If something suspicious is found using any other tests, you will likely need a colonoscopy. When to call your healthcare provider after a test Call your healthcare provider if you have any of the following after any screening test: Bleeding Fever of 100.4F (38C) or higher, or as directed by your healthcare provider Abdominal pain Vomiting Date Last Reviewed: 03/18/201519996715-3955 The [employer]. [address] [place] [address]. All rights reserved. This information is not intended as a substitute for professional medical care. Always follow your healthcare professional's instructions. documented in this encounter Progress Notes * Reinier Thomas, - 08/11/2023 8:10 AM EDT Images from the original note were not included. Pre-Operative Medical Evaluation Procedure Information Type of Surgery: L4 to S1 Lumbar Decompression and Fusion, Spinal Cord Stimulator Removal Referring Physician / Surgeon: Dr Renny Dietz, [facility] Date of procedure: 08/24/2023 Brief History of Present Illness: Patient presents to office for pre-operative medical clearance for elective L4-S1 Decompression/fusion as well as spinal cord stimulator removal with Dr Dietz at [facility]. Overall besides back pain patient states feeling okay overall. He was seen in the ED at [facility] in early July for hemorrhoidal bleeding. He has not had any recurrence of this. BMP, CBC blood work looked fine. Again no recurrence of symptoms. No other abdominal issues. Denies any chest pain, palpitations, dizziness/lightheadedness. He is on chronic anticoagulation with Coumadin due to history of cerebrovascular disease. He does follow with anticoagulation clinic in [place]. Again had recent lab work done at [facility] which showed BMP demonstrating normal renal function and electrolytes. CBC demonstrating normal white cells, hemoglobin/hematocrit, platelets Had history of spine stimulator placed last year at [facility] which has not helped his back pain. This is to be removed during his procedure. Back pain has been managed on chronic opiate therapy. Currently oxycodone 15 mg every 4 hours as needed for moderate/severe pain. Had also been on transdermal therapy with Butrans but was found to be ineffective Review of Systems Constitutional: Negative for chills, fatigue and fever. HENT: Negative for congestion, sore throat and trouble swallowing. Eyes: Negative for photophobia and pain. Respiratory: Negative for cough, shortness of breath and wheezing. Cardiovascular: Negative for chest pain and palpitations. Gastrointestinal: Negative for abdominal distention, abdominal pain, nausea and vomiting. Genitourinary: Negative for dysuria and frequency. Musculoskeletal: Positive for back pain. Negative for arthralgias and neck stiffness. Skin: Negative for pallor. Neurological: Negative for dizziness, light-headedness and headaches. Psychiatric/Behavioral: Negative for sleep disturbance. The patient is not nervous/anxious. Medical History Problem List: Osteoarthritis of spine with radiculopathy, lumbar region (07/12/2022) Acquired hypothyroidism (10/30/2020) Iliac aneurysm (HCC) (12/19/2019) Esophageal stricture (07/29/2019) S/P cervical spinal fusion (07/29/2019) S/P cervical discectomy (04/09/2018) History of CVA (cerebrovascular accident) (03/19/2018) Foraminal stenosis of cervical region (03/19/2018) Spondylolisthesis of cervical region (02/02/2018) Prediabetes (06/27/2017) Dupuytren's contracture of left hand (07/14/2016) MEDICATION USE AGREEMENT (07/02/2014) Circulating anticoagulants (HCC) (10/06/2011) PFO (patent foramen ovale) (06/07/2011) Dyslipidemia, goal LDL below 100 (06/02/2010) CEREBROVASCULAR DZ, POST-STROKE (08/26/2008) ADVANCE DIRECTIVE INFORMATION (02/08/2005) [facility] current use of anticoagulant therapy (11/28/2004) BPH without obstruction/lower urinary tract symptoms (07/21/2003) Anticoagulation management encounter (11/09/2001) GENERAL OSTEOARTHROSIS (04/19/2001) Dyslipidemia, goal to be determined (01/25/2001) Special screening for malignant neoplasms, colon (01/25/2001) COMMON MIGRAINE WITHOUT MENTION OF INTRACTABLE MIGRAINE (01/25/2001) CVA (01/25/2001) 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 Black Elderberry(Contreras-Flower) 575 MG Oral Capsule, 1 Tablet, Oral, Daily(AM) Vitamin C 500 MG Oral Tablet (Ascorbic Acid), 500 mg, Oral, Daily(AM) Multivitamin Adult Oral Tablet, 1 Tablet, Oral, Daily(AM) acetaminophen (TYLENOL) 325 MG Tablet, 650 mg, Oral, Q4H PRN HYDROcodone-Acetaminophen 10-325 MG Oral Tablet, 1 Tablet, Oral, Q4H PRN (Patient not taking: Reported on 08/11/2023) Allergies: Niacin Past Medical History: has a past medical history of Chronic anticoagulation, Hypothyroidism, INFORMATION, OTHER, and OTHER. Past Surgical History: has a past surgical history that includes spine surgery procedure nec (1997); information (Bilateral); information; information (Left); removal of parotid gland/tumor (Right, 02/23/2006); Arthrodesis, Ant Interbody, Below C-2 (N/A, 03/19/2018); Arthrodesis,Ant Interbody,Below C-2,ea addl (N/A, 03/19/2018); EGD, Flexible, Diagnostic (12/20/2018); umbil hernia repair (reducible) age 5+yr; Repair Initial Inguinal Hernia Reducible Age 5 or More (N/A, 02/15/2019); Inject Dx/Ther Substance Interlaminar Lumbar/Sacral W Image Guide (08/27/2020); Sacroiliac Joint Inject w/Guidance (03/25/2021); Inject Dx/Ther Substance Interlaminar Lumbar/Sacral W Image Guide (08/26/2021); Lumbar / Sacral Epidural, single level (11/25/2021); implant epidural neuroelectrodes (Bilateral, 11/02/2022); and Eval Neurostim PulseGen, w/ Reprogram (Bilateral, 11/02/2022). Social History: reports that he has never smoked. He has quit using smokeless tobacco. His smokeless tobacco use included chew. He reports that he does not drink alcohol and does not use drugs. Family History: family history includes Heart disease in his father; Leukemia in his brother; Melanoma in his mother; No Known Problems in his brother, brother, brother, daughter, daughter, sister, son, and son. Anesthesia History Type of Anesthesia: General Endotracheal Anesthesia reaction: No History of surgical complications: None known Personal history of venous thromboembolic disease: none known Physical Exam Vitals: 08/11/23 0753 Temp: 36.3 C (97.3 F) Pulse: 70 Resp: 18 SpO2: 98% BP: 106/64 Physical Exam Constitutional: General: He is not in acute distress. Appearance: He is not ill-appearing. HENT: Head: Normocephalic and atraumatic. Right Ear: Tympanic membrane, ear canal and external ear normal. Left Ear: Tympanic membrane, ear canal and external ear normal. Nose: Nose normal. No congestion or rhinorrhea. Mouth/Throat: Mouth: Mucous membranes are moist. Pharynx: Oropharynx is clear. Eyes: General: No scleral icterus. Extraocular Movements: Extraocular movements intact. Conjunctiva/sclera: Conjunctivae normal. Pupils: Pupils are equal, round, and reactive to light. Neck: Vascular: No carotid bruit. Cardiovascular: Rate and Rhythm: Normal rate and regular rhythm. Pulses: Normal pulses. Heart sounds: Normal heart sounds. No murmur heard. No friction rub. No gallop. Pulmonary: Effort: Pulmonary effort is normal. Breath sounds: Normal breath sounds. No wheezing, rhonchi or rales. Abdominal: General: Bowel sounds are normal. There is no distension. Palpations: Abdomen is soft. There is no mass. Tenderness: There is no abdominal tenderness. There is no right CVA tenderness or left CVA tenderness. Musculoskeletal: General: No swelling or tenderness. Normal range of motion. Cervical back: Normal range of motion and neck supple. Right lower leg: No edema. Left lower leg: No edema. Comments: Limited range of motion lumbar spine as at previous visits. Also has some visible arthritic changes at the base of each thumb Skin: General: Skin is warm and dry. Coloration: Skin is not jaundiced. Findings: No rash. Neurological: General: No focal deficit present. Mental Status: He is oriented to person, place, and time. Cranial Nerves: No cranial nerve deficit. Sensory: No sensory deficit. Motor: No weakness. Psychiatric: Mood and Affect: Mood normal. Behavior: Behavior normal. Labs reviewed and are significant for: BMP, CBC, Urinalysis all looked fine EKG by my review is significant for: Sinus Silvestre, 1st Degree AVB, no acute ischemic or arrhythmic changes. NO changes from previous study. Surgical Risk Scoring Revised Cardiac Risk Index (RCRI) High-risk type of surgery (examples include vascular and any open intraperitoneal or intrathoracic procedures): 0=No History of ischemic heart disease (history of myocardial infarction or positive exercise test, current compliant of chest pain considered to be secondary to myocardia ischemia, use of nitrate therapy, or ECG with pathological Q waves; do not count prior coronary revascularization procedure unless one of the other criteria for ischemic heart disease is present): 0=No History of heart failure: 0=No History of cerebrovascular disease: 1=Yes Diabetes mellitus requiring treatment with insulin: 0=No Preoperative serum creatinine >2.0 mg/dL (177 micromol/L): 0=No Pt has revised cardiac index score of: One Risk Factor- 1.0% (95% CI: 0.5-1.4) Screening for Obstructive Sleep Apnea (STOP-BANG) Do you Snore loudly? 0=No Do you often feel Tired, Fatigued, or Sleep? 0=No Has anyone Observed you Stop Breathing or Choking/Gasping during sleep? 0=No Do you have or are you being treated for High Blood Pressure? 0=No BMI over 35? 0=No Age older than 50? 1=Yes Neck size large? (For males - 17 inches or larger, For females - 16 inches or larger) 0=No Male? 1=Yes Score 0-2:low risk JOSH, 3-4: intermediate risk of JOSH, 5-8: high risk JOSH 2 Assessment and Plan Special screening for malignant neoplasms, colon (Primary) - COLONOSCOPY, GI REFERRAL OP CEREBROVASCULAR DZ, POST-STROKE - EKG; Future; Expected date: 08/11/2023 Acquired hypothyroidism Iliac aneurysm (HCC) BPH without obstruction/lower urinary tract symptoms Chronic pain syndrome Spinal stenosis of lumbar region with neurogenic claudication Osteoarthritis of spine with radiculopathy, lumbar region GENERAL OSTEOARTHROSIS Hemorrhoids, external without complications Primary osteoarthritis of both hands - SPORTS MEDICINE REFERRAL OP Plan: Patient presents for preop medical clearance prior to planned L4-S1 lumbar decompression and fusion. Removal of spine stimulator. Will be done by Dr. Dietz at [facility]. Surgery scheduled for August 23 Stable otherwise on physical exam. No acute cardiopulmonary symptoms noted no abnormal cardiopulmonary findings on exam. He did have ER visit to [facility] for hemorrhoidal bleeding in early July but has had no further recurrence. No issues with labs Overall due to history of cerebrovascular disease he is moderate risk for this surgery but currently medically optimized. Labs including BMP, CBC looked fine. His EKG shows mild sinus Silvestre, first-degree AV block, no acute ischemic or arrhythmic changes. No changes compared to prior study Believe benefit of surgery outweighs risks. He has an appropriate surgical candidate per age. Againcurrently medically optimized. Okay to proceed with spine surgery as scheduled from medical standpoint His Coumadin will need to be held 5 days before. He will require Lovenox bridge. I will coordinate this with anticoagulation pharmacist who has followed with him in the past. Likely okay to resume anticoagulation 24-48 hours after procedure or whenever okay with Orthopedics Patient should hold his Celebrex 7 days prior to procedure. Otherwise continue other medications asordered. Continue levothyroxine 50 mcg daily for hypothyroidism Follow Up: Return if symptoms worsen or fail to improve, for Follow up next routine with PCP as scheduled. | For: Follow up next routine with PCP as scheduled | Check-out note: Follow up as scheduledin October Functional Assessment They are able to walk up a flight of stairs, walk two blocks at a moderate pace, do heavy house work like vacuuming, and grocery shop. The patient's functional status is good (greater than 4 METS). 1 MET: 4 METs: 4-10 METs: Can take care of self, such as eat, dress or use the toilet. Can walk to block or go up a flight of steps. Can do heavy house work. Surgical Risk Assessment Patient is indeterminate medical risk for the listed procedure. Currently medically optimized. Okayto proceed with surgery as scheduled Medication adjustments: Hold Celebrex 7 days prior to procedure. Will resume postop when appropriate. Hold Coumadin 5 days prior to procedure. Will require Lovenox bridge. Will coordinate with anticoagulation pharmacist Additional consults or testing: None I spent a total of 40-54 minutes (exact time 45 mins) on the date of service in preparation, delivery, and documentation of the care provided to Rodrigo Alva excluding any time spent in the performance of separately billed services. Reinier Combs documented in this encounter Nursing Notes * Esperanza Frausto LPN - 08/11/2023 7:55 AM EDT The patient has been properly identified by confirmation of name and date of . Chief Complaint Patient presents with pre-op exam Patient is here for a preop exam. Patient sattes he would like to know about shots in his hands. documented in this encounter Plan of Treatment Upcoming Encounters Date Type Department Care Team (Latest Contact Info) Description 08/11/2023 5:10 PM EDT Anticoagulation Pharmacy, [address] [address] [facility] [address] [place] [address] CEREBROVASCULAR DZ, POST-STROKE*; PFO (patent foramen ovale) 09/07/2023 9:50 AM EDT Anticoagulation Pharmacy, [facility] [address] [place] [address] [facility], [facility] [address] [place] [address] 10/18/2023 1:40 PM EDT Office Visit Family [facility] [address] [place] [phone] Reinier Thomas DO [address] [place] [address] 12/12/2023 1:40 PM EDT Office Visit Dermatology [facility] [address] [place] [phone] Osmin Byrd PA-C [address] [place], [place] [phone] Scheduled Orders Name Type Priority Associated Diagnoses Orde r Schedule EKG EKG Routine CEREBROVASCULAR DZ, POST-STROKE Expected: 08/11/2023 (Approximate), Expires: 09/10/2024 Scheduled Referrals Name Type Priority Associated Diagnoses Orde r Schedule COLONOSCOPY, GI REFERRAL OP Referral Within 30 days (routine) Special screening for malignant neoplasms, colon Ordered: 08/11/2023 SPORTS MEDICINE REFERRAL OP Referral Within 10 days (routine) Primary osteoarthritis of both hands Ordered: 08/11/2023 Health Maintenance Due Date Last Done Comments [...] this encounter Medical Devices Implanted Type Area Travel Coordinator Device Identifier Shelf Expiration Date Model / Serial / Lot Graft Cervical 6x8 [id number] - [id number] - [id number] Implanted:Qt y: 1 on 03/19/2018 by Ubaldo Johnson MD [place] [facility] [place] Tissue - Human N/A: Spine Cervical LIFENET 08/01/2022 [id number] / [id number] / [id number] Graft Cervical 6x8 [id number]-R36 - [id number] - [id number] Implanted:Qt y: 1 on 03/19/2018 by Ubaldo Johnson MD [place] [facility] [place] Tissue - Human N/A: Spine Cervical LIFENET 04/19/2022 [id number] / [id number] / [id number] Plate Cerv 2 Lev 34mm Std - [id number] Implanted:Qt y: 1 on 03/19/2018 by Ubaldo Johnson MD [place] [facility] [place] N/A: Spine Cervical [employer] [id number] / / Description:from set Screw St Efrain Slf Drl 4.0x14mm - [id number] Implanted:Qt y: 3 on 03/19/2018 by Ubaldo Johnson MD at [place] [facility] [place] N/A: Spine Cervical [place] [employer] [id number] / / Description:from set Screw St Efrain Slf Drl 4.0x16mm - [id number] Implanted:Qt y: 3 on 03/19/2018 by Ubaldo Johnson MD at [place] [facility] [place] N/A: Spine Cervical [employer] [place] [employer] [id number] / / Description:from set Mesh Perfix Plug Lg [id number] - [id number] Implanted:Qt y: 1 on 02/15/2019 by Josué Kelley MD at [place] [facility] [place] N/A: Groin CR BARD : DAVOL [id number] 03/11/2023 [id number] / / [id number] Lead Kit Trial [id number] 50cm - [id number] - [id number] Implanted:Qt y: 1 on 11/02/2022 by Franklin Olmos DO at OR [facility] N/A: Back [employer] : PAIN MGMT 08/05/2024 [id number] / [id number] / [id number] documented as of this encounter Visit Diagnoses Diagnosis Special screening for malignant neoplasms, colon- Primary CEREBROVASCULAR DZ, POST-STROKE Cerebral atherosclerosis Acquired hypothyroidism Unspecified hypothyroidism 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 BPH without obstruction/lower urinary tract symptoms Hypertrophy of prostate without urinary obstruction and other lower urinary tract symptoms (LUTS) Chronic pain syndrome Spinal stenosis of lumbar region with neurogenic claudication Spinal stenosis, lumbar region, with neurogenic claudication Osteoarthritis of spine with radiculopathy, lumbar region GENERAL OSTEOARTHROSIS Generalized osteoarthrosis, unspecified site Hemorrhoids, external without complications External hemorrhoids without mention of complication Primary osteoarthritis of both hands CEREBROVASCULAR DZ, POST-STROKE- Primary Cerebral atherosclerosis PFO (patent foramen ovale) Ostium [...] michelle occurred with: Not Discussed Care Teams Obgyn Hospitalist Physician Relationship Specialty Start Date End Date Reinier Thomas DO [address] [place] [address] PCP - General Internal Medicine 03/17/21 documented as of this encounter"
--- OUTSIDE RECORDS SUMMARY | 2023-08-24 22:22 | External Medical Summary | Summary of Care ---
Author Name Unknown Organization [facility] Address [address] [place] [address] Phone [phone] Care Team Providers Care Director Report Name Role Phone Reinier Samuel DO Primary Care Provid er Reason for Visit * Reason Comments eRx-Medication Refill Encounter Details Date Type Department Care Team ([facility] st Contact Info) Description 08/11/2023 Refill Family [address] [phone] Reinier Samuel DO [address] [place] [address] GENERAL OSTEOARTHROSIS; History of CVA (cerebrovascular accident); Dyslipidemia, goal LDL below 70; Acquired hypothyroidism Allergies Active Allergy Reactions Criticality Noted Date Comments Niacin 07/07/2005 documented as of this encounter (statuses as of 08/12/2023) Medications Medication Sig Dispensed Refills Start Date End Date Status acetaminophen (TYLENOL) 325 MG Tablet Take 2 Tabs by mouth every 4 hours as needed for Pain. 60 Tab 0 02/16/20 19 Active Multivitamin Adult Oral Tablet Take 1 Tab by mouth daily. 0 10/21/19 20 Active Vitamin C 500 MG Oral Tablet (Ascorbic Acid) Take 1 Tablet by mouth in the morning. 0 Active Black Elderberry(Contreras-F lower) 575 MG Oral Capsule Take by mouth 1 Tablet daily . 0 Active Warfarin Sodium 6 MG Oral Tablet (Coumadin) TAKE ONE TABLET BY MOUTH EVERY MORNING OR DIRECTED BY THE ANTICO CLINIC. 90 Tablet 2 11/24/19 23 Active oxyCODONE HCl 15 MG Oral Tablet (Roxicodone)Indica tions:Spinal stenosis of lumbar region with neurogenic claudication,Chron ic pain syndrome,Osteoarth ritis of spine with radiculopathy, lumbar region Take 1 Tablet by mouth every 4 hours as needed for Pain, Moderate or Pain, Severe. 180 Tablet 0 07/26/19 24 Active Enoxaparin Sodium 80 MG/0.8ML Injection Solution Prefilled Syringe (Lovenox)Indicatio ns:Cerebrovascular disease, arteriosclerotic, post-stroke,PFO (patent foramen ovale) Inject full contents of one syringe ever 12 hours as instructed by anticoagulation clinic 8 mL 0 08/11/19 24 Active Celecoxib 200 MG Oral Capsule (CeleBREX)Indicati ons:Generalized osteoarthritis TAKE 1 CAPSULE BY MOUTH EVERY DAY 90 Capsule 1 08/12/19 24 Active Atorvastatin Calcium 80 MG Oral Tablet (Lipitor)Indicatio ns:History of CVA (cerebrovascular accident),Dyslipid emia, goal LDL below 70 TAKE 1 TABLET BY MOUTH EVERY DAY IN THE MORNING 90 Tablet 1 08/12/19 24 Active Levothyroxine Sodium 50 MCG Oral Tablet (Levoxyl)Indicatio ns:Acquired hypothyroidism TAKE 1 TABLET BY MOUTH IN THE MORNING 30 MINUTES BEFORE BREAKFAST OR OTHER MEDICATIONS 90 Tablet 1 08/12/19 24 Active Atorvastatin Calcium 80 MG Oral Tablet (Lipitor)Indicatio ns:History of CVA (cerebrovascular accident),Dyslipid emia, goal LDL below 70 Take 1 Tablet by mouth in the morning. 90 Tablet 2 12/08/19 23 024 Discontinued Levothyroxine Sodium 50 MCG Oral Tablet (Levoxyl)Indicatio ns:Acquired hypothyroidism 1 TABLET BY MOUTH IN THE MORNING 30 MINUTES BEFORE BREAKFAST OR OTHER MEDICATIONS 90 Tablet 2 12/08/19 23 024 Discontinued Celecoxib 200 MG Oral Capsule (CeleBREX)Indicati ons:Generalized osteoarthritis TAKE ONE CAPSULE BY MOUTH DAILY 90 Capsule 1 03/08/20 23 024 Discontinued documented as of this encounter (statuses as of 08/12/2023) Active Problems Problem Noted Date Diagnosed Date [...] as of this encounter (statuses as of 08/12/2023) Resolved Problems Problem Noted Date Diagnosed Date Resolved Date History of CVA (cerebrovascular accident) 03/19/2018 03/29/2021 Prediabetes 06/27/2017 07/31/2017 Overview: Per Prediabetes protocol #1 Dyslipidemia, goal LDL below 100 06/02/2010 12/19/2019 intermediate current use of ant icoagulant therapy 11/28/2004 [...] as of this encounter (statuses as of 08/12/2023) Immunizations Name Administration Dates Next Due COVID-19 [...] encounter Miscellaneous Notes * Telephone Encounter - Rell Cordoba RPh - 08/12/2023 8:49 AM EDTSigned Prescriptions: Disp Refills Celecoxib 200 MG Oral Capsule (CeleBREX) 90 Cap*1 Sig: TAKE 1 CAPSULE BY MOUTH EVERY DAYAuthorizing Provider: REINIER SAMUEL User: RELL CORDOBA Atorvastatin Calcium 80 MG Oral Tablet (Li*90 Tab*1 Sig: TAKE 1 TABLET BY MOUTH EVERY DAY IN THE MORNINGAuthorizing Provider: REINIER SAMUEL User: RELL CORDOBA Levothyroxine Sodium 50 MCG Oral Tablet (L*90 Tab*1 Sig: TAKE 1 TABLET BY MOUTH IN THE MORNING 30 MINUTES BEFORE BREAKFAST OR OTHER MEDICATIONSAuthorizing Provider: REINIER SAMUEL User: RELL SOLOMON * Telephone Encounter - Rell Cordoab RPh - 08/12/2023 8:46 AM EDT x1 documented in this encounter Plan of Treatment Upcoming Encounters Date Type Department Care Team (Late st Contact Info) Description 09/07/2023 9:50 AM EDT [facility], [place] [address] [facility] [address] [facility] [address] [place] [address] 10/18/2023 1:40 PM EDT Office Visit Family Practice [facility] [address] [place] [phone] Reinier Samuel DO [address] [place] [address] 12/12/2023 1:40 PM EDT Office Visit Dermatology [facility] [address] [place] [address] Osmin Byrd PA-C [address] [place], [place] [phone] Health Maintenance Due Date Last Done Comments [...] this encounter Medical Devices Implanted Type Area Pedal Assembler Device Identifier Shelf Expiration Date Model / Serial / Lot Graft Cervical 6x8 [id number] - [id number] - [id number] Implanted:Qt y: 1 on 03/19/2018 by Ubaldo Johnson MD at [place] [facility] [place] Tissue - Human N/A: Spine Cervical LIF[employer]ET 08/01/2022 [id number] / [id number] / [id number] Graft Cervical 6x8 [id number] - [id number] - [id number] Implanted:Qt y: 1 on 03/19/2018 by Ubaldo Johnson MD at [place] [facility] Tissue - Human N/A: Spine Cervical LIFENET 04/19/2022 [id number] / [id number] / [id number] Plate Cerv 2 Lev 34mm Std - [id number] Implanted:Qt y: 1 on 03/19/2018 by Ubaldo Johnson MD at OR [facility] N/A: Spine Cervical [employer] [id number] / / Description:from set Screw St Efrain Slf Drl 4.0x14mm - [id number] Implanted:Qt y: 3 on 03/19/2018 by Ubaldo Johnson MD at OR [facility] N/A: Spine Cervical [employer] [id number] / / Description:from set Screw St Efrain Slf Drl 4.0x16mm - [id number] Implanted:Qt y: 3 on 03/19/2018 by Ubaldo Johnson MD at [place] [facility] N/A: Spine Cervical [employer] [id number] / / Description:from set Mesh Perfix Plug Lg [id number] - [id number] Implanted:Qt y: 1 on 02/15/2019 by Josué Kelley MD at OR [facility] N/A: Naz CAMACHO BARD : DAVOL [id number] 03/11/2023 [id number] 70 / / [id number] Lead Kit Trial [id number] 50cm - [id number] - [id number] Implanted:Qt y: 1 on 11/02/2022 by Franklin Olmos DO at OR [facility] N/A: Back [employer] : PAIN MGMT 08/05/2024 [id number] 650E0 / [id number] / [id number] documented as of this encounter Visit Diagnoses Diagnosis GENERAL OSTEOARTHROSIS Generalized osteoarthrosis, unspecified site History of CVA (cerebrovascular accident) Transient ischemic attack (TIA), and cerebral infarction without residual deficits Dyslipidemia, goal LDL below 70 Other and unspecified hyperlipidemia Acquired hypothyroidism Unspecified hypothyroidism documented in this encounter Advance Directives Latest [...] michelle occurred with: Not Discussed Care Teams Director Report Relationship Specialty Start Date End Date Reinier Samuel DO [address] [place] [address] PCP - General Internal Medicine 03/17/21 documented as of this encounter
--- OUTSIDE RECORDS SUMMARY | 2023-08-24 22:22 | External Medical Summary | Summary of Care ---
Author Name Unknown Organization [facility] Address [address] [place] [address] Phone [phone] Care Team Providers Care Crusher Wet Ground Mica Name Role Phone Reinier Thomas DO Primary Care Provid er Reason for Referral * Evaluate & Treat - Unlimited Visits (Within 10 days (routine)) - Authorized Specialty Diagnoses / Procedures Referred By Tricia scott Referred To Contact Sports Medicine / Orthopedics Diagnoses Primary osteoarthritis of both [place] [address] Referral ID Status Reason Start Date Expiration Date Visits Requested Visits Authorized [id number] Authorized Specialty Services Required 08/11/2023 999 999 [...] malignant neoplasms, colon Reinier Thomas DO [address] [place] [address] Referral ID Status Reason Start Date Expiration Date Visits Requested Visits Authorized [id number] Authorized Ancillary Services Required 08/11/2023 999 999 Question Answer Referral Priority Within 30 days (routine) Where should this appointment be scheduled? [facility] Comments ALERT: Do not order for pediatric patients (18 years or younger). Cancel off screen and order PEDS GASTROENTEROLOGY CONSULT (Type: 1 visit only-Evaluate and Treat) The following Pt. Instructions are available: - Gastro Colonoscopy Prep Instructions [01100] - Gastro Colonoscopy Prep Instructions (Equatorial Guinean Version) [78785] Go to the Pt. 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 [address] [place] [address]. All rights reserved. This information is not [...] Referring Physician / Surgeon: Dr Renny Dietz, [facility] Date of procedure: 08/24/2023 Brief History of Present Illness: Patient presents to office for pre-operative medical clearance for elective L4-S1 Decompression/fusion as well as spinal cord stimulator removal with Dr Dietz at [facility]. Overall besides back pain patient states feeling okay overall. He was seen in the ED at [facility] in early July for hemorrhoidal bleeding. He has not had any recurrence of this. BMP, CBC blood work looked fine. Again no recurrence of symptoms. No other abdominal issues. Denies any chest pain, palpitations, dizziness/lightheadedness. He is on chronic anticoagulation with Coumadin due to history of cerebrovascular disease. He does follow with anticoagulation clinic in [place]. Again had recent lab work done at [facility] which showed BMP demonstrating normal renal function and electrolytes. CBC demonstrating normal white cells, hemoglobin/hematocrit, platelets Had history of spine stimulator placed last year at [facility] which has not helped his back pain. [...] DZ, POST-STROKE (08/26/2008) ADVANCE DIRECTIVE INFORMATION (02/08/2005) assisted current use of anticoagulant therapy (11/28/2004) BPH [...] Will be done by Dr. Dietz at [facility]. Surgery scheduled for August 23 Stable otherwise on physical exam. No acute cardiopulmonary symptoms noted no abnormal cardiopulmonary findings on exam. He did have ER visit to [facility] for hemorrhoidal bleeding in early July but [...] Care Team (Late st Contact Info) Description 08/22/2023 10:30 AM EDT Anticoagulation Pharmacy, [address] [place] [address] [facility] [address] [place] [address] 10/18/2023 1:40 PM EDT Office Visit Family Practice [facility] [address] [place] [address] Reinier Thomas DO [address] [place] [address] 12/12/2023 1:40 PM EDT Office Visit Dermatology [facility] [address] [place] [address] Osmin Byrd PA-C [address] [place] [address] Scheduled Orders Name Type Priority Associated Diagnoses [...] this encounter Medical Devices Implanted Type Area Rotary Drum Dyer Device Identifier Shelf Expiration Date Model / Serial / Lot Graft Cervical 6x8 [id number] - [id number] - [id number] Implanted:Qt y: 1 on 03/19/2018 by Ubaldo Johnson MD at [place] [facility] [place] Tissue - Human N/A: Spine Cervical LIFENET 08/01/2022 [id number] / [id number] / [id number] Graft Cervical 6x8 Qa4f-R81 - [id number] - [id number] Implanted:Qt y: 1 on 03/19/2018 by Ubaldo Johnson MD at OR [facility] [place] Tissue - Human N/A: Spine Cervical LIFENET 04/19/2022 [id number] / [id number] / [id number] Plate Cerv 2 Lev 34mm Std - [id number] Implanted:Qt y: 1 on 03/19/2018 by Ubaldo Johnson MD at OR [facility] N/A: Spine Cervical [email or web address] [id number] / / Description:from set Screw St Efrain Slf Drl 4.0x14mm - [id number] Implanted:Qt y: 3 on 03/19/2018 by Ubaldo Johnson MD at OR [facility] N/A: Spine Cervical [email or web address] [id number] / / Description:from set Screw St Efrain Slf Drl 4.0x16mm - [id number] Implanted:Qt y: 3 on 03/19/2018 by Ubaldo Johnson MD at OR [facility] N/A: Spine Cervical [email or web address] [id number] / / Description:from set Mesh Perfix Plug Lg [id number] - [id number] Implanted:Qt y: 1 on 02/15/2019 by Josué Kelley MD at OR [facility] N/A: Naz CR BARD : DAVOL [id number] 03/11/2023 [id number] 70 / / [id number] Lead Kit Trial [id number] 50cm - [id number] - [id number] Implanted:Qt y: 1 on 11/02/2022 by Franklin Olmos DO at OR [facility] N/A: Back [place] : PAIN MGMT 08/05/2024 [id number] 650E0 / [id number] / [id number] documented as of this encounter Visit Diagnoses [...] of complication Primary osteoarthritis of both hands documented in this encounter Advance Directives Latest [...] michelle occurred with: Not Discussed Care Teams Crusher Wet Ground Mica Relationship Specialty Start Date End Date Reinier Thomas DO [address] [place] [address] PCP - General Internal Medicine 03/17/21 documented as of this encounter"
--- OUTSIDE RECORDS SUMMARY | 2023-08-24 22:22 | External Medical Summary | Summary of Care ---
Author Name Unknown Organization [facility] Address [address] [place] [facility] [place] [address] Phone [phone] Care Team Providers Care Burlap Worker Name Role Phone SoniajmReinierothy Primary Care Provid er Encounter Details Date Type Department Care Team (Late st Contact Info) Description 08/14/2023 Telephone Pharmacy, [facility] [address] [place] [address] Ethan Zamudio, [facility] [address] [place] [address] Allergies Active Allergy Reactions Criticality Noted Date Comments Niacin 07/07/2005 documented as of this encounter (statuses as of 08/14/2023) Medications Medication Sig Dispensed Refills Start Date [...] as of this encounter (statuses as of 08/14/2023) Active Problems Problem Noted Date Diagnosed Date [...] as of this encounter (statuses as of 08/14/2023) Resolved Problems Problem Noted Date Diagnosed Date Resolved Date History of CVA (cerebrovascular accident) 03/19/2018 03/29/2021 Prediabetes 06/27/2017 07/31/2017 Overview: Per Prediabetes protocol #1 Dyslipidemia, goal LDL below 100 06/02/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 - 08/14/2023 8:30 AM EDT Noted by ACC. No dose change for warfarin. Aware of risks. Mona Melendez, PharmD, BCACP Clinical Pharmacist Medication Therapy Disease Management 08/14/2023, 8:31 AM * Telephone Encounter - Ethan Zamudio [facility] - 08/14/2023 8:17 AM EDT WARFARIN INTERACTION. Please notify service or provider managing Warfarin therapy to adjust the dose of warfarin or the interacting medication appropriately. Active Date User Triggers Comment 08/12/23 [address] [facility] [[id number]] Sign Orders CELECOXIB 200 MG OR CAPS [[id number]] WARFARIN SODIUM 6 MG OR TABS [[id number]] Order: Celecoxib 200 MG Oral Capsule (CeleBREX) Order: Warfarin Sodium 6 MG Oral Tablet (Coumadin) Order: Celecoxib 200 MG Oral Capsule (CeleBREX) None documented in this encounter Plan of Treatment Upcoming Encounters Date Type Department Care Team (Late st Contact Info) Description 09/07/2023 9:50 AM EDT Anticoagulation Pharmacy, [place] [address] [place] [address] [facility] [address] [place] [address] 10/18/2023 1:40 PM EDT Office Visit [address] [phone] Reinier Thomas, [address] [place] [address] 12/12/2023 1:40 PM EDT Office Visit Dermatology [facility] [address] [place] [address] Osmin Byrd PA-C [address] [place] [address] Health Maintenance Due Date Last Done Comments [...] this encounter Medical Devices Implanted Type Area Inspector Printed Circuit Boards Device Identifier Shelf Expiration Date Model / Serial / Lot Graft Cervical 6x8 [id number] - [id number] - [id number] Implanted:Qt y: 1 on 03/19/2018 by Ubaldo Johnson MD at OR [facility] Tissue - Human N/A: Spine Cervical LIFENET 08/01/2022 [id number] / [id number] / [id number] Graft Cervical 6x8 Hb9d-J49 - [id number] - [id number] Implanted:Qt y: 1 on 03/19/2018 by Ubaldo Johnson MD at OR [facility] Tissue - Human N/A: Spine Cervical LIFENET 04/19/2022 [id number] / [id number] / [id number] Plate Cerv 2 Lev 34mm Std - [id number] Implanted:Qt y: 1 on 03/19/2018 by Ubaldo Johnson MD at OR [facility] N/A: Spine Cervical [employer] [id number] / / Description:from set Screw St Efrain Slf Drl 4.0x14mm - [id number] Implanted:Qt y: 3 on 03/19/2018 by Ubaldo Johnson MD at OR [facility] N/A: Spine Cervical [employer] [id number] / / Description:from set Screw St Efrain Slf Drl 4.0x16mm - [id number] Implanted:Qt y: 3 on 03/19/2018 by Ubaldo Johnson MD at OR [facility] N/A: Spine Cervical [employer] [id number] / / Description:from set Mesh Perfix Plug Lg [id number] - [id number] Implanted:Qt y: 1 on 02/15/2019 by Josué Kelley MD at OR [facility] N/A: Naz CAMACHO BARD : DAVOL [id number] 03/11/2023 [id number] / / [id number] Lead Kit Trial [id number] 50cm - [id number] - [id number] Implanted:Qt y: 1 on 11/02/2022 by Franklin Olmos DO at OR [facility] N/A: Back [employer] SCIENTIFIC : PAIN MGMT 08/05/2024 [id number] / [id number] / [id number] documented as of this encounter Advance Directives [...] michelle occurred with: Not Discussed Care Teams Burlap Worker Relationship Specialty Start Date End Date Reinier Thomas DO [place], [place] [id number] PCP - General Internal Medicine 03/17/21 documented as of this encounter
--- OUTSIDE RECORDS SUMMARY | 2023-08-24 22:22 | External Medical Summary | Summary of Care ---
Author Name Unknown Organization [facility] Address [address] [place] [address] Phone [phone] Care Team Providers Care Coppersmith Apprentice Name Role Phone SoniajmReinier DO Primary Care Provid er Reason for Visit * Reason Comments Procedure Encounter Details Date Type Department Care Team (Latest Contact Info) Description 08/11/2023 5:10 PM EDT Anticoagulation Pharmacy, [place] [address] [place] [address] [facility] [address] [place] [address] CEREBROVASCULAR DZ, POST-STROKE*; PFO (patent foramen ovale) Allergies Active Allergy Reactions Criticality Noted Date [...] anticoagulation clinic 8 mL 0 08/11/2023 Active documented as of this encounter (statuses [...] Dyslipidemia, goal LDL below 100 06/02/2010 12/19/2019 correction current use of ant icoagulant therapy 11/28/2004 [...] as of this encounter Progress Notes * Mona Melendez, [facility] - 08/11/2023 9:24 AM EDT Medication Therapy Disease Management - Anticoagulation Patient: Rodrigo Alva | : 1950 Subjective Contacts Type Contact Phone/Fax 08/11/2023 09:44 AM EDT Phone (Outgoing) Rodrigo Alva (Self) [phone] (H) Spoke to Patient Patient is having a L4-S1 lumbar decompression and fusion as well as spinal cord stimulator [facility] Dr. [facility] on [facility]23. Patient has history of stroke and requires Lovenox bridging. Patient used Lovenox before in November for SCS placement. See letters section for specific lovenox bridge instructions. Delayed restart of lovenox due to nature of procedure Actual Body Weight 75 kg Latest Reference Range & Units 03/29/21 16:26 07/06/22 10:16 01/12/23 10:14 Sodium 135 - 146 mmol/L 140 142 144 Potassium 3.5 - 5.1 mmol/L 4.3 4.5 4.7 Chloride 98 - 107 mmol/L 102 105 105 CO2 22 - 32 mmol/L 29 28 29 BUN 6 - 20 mg/dL 26 (H) 27 (H) 21 (H) Creatinine 0.6 - 1.2 mg/dL 0.9 0.8 0.8 Estimated Glomerular Filtration Rate >=60 mL/min 83 >90 >90 Anion Gap 7 - 15 mmol/L 9 9 10 Glucose 70 - 120 mg/dL 84 110 100 Calcium 8.4 - 10.2 mg/dL 10.0 9.3 10.1 Protein 6.0 - 8.3 g/dL 6.7 6.7 6.7 (H): Data is abnormally high Kidney function stable. Hemoglobin Results: Recent Labs Units 01/12/23 1014 07/06/22 1016 03/29/21 1626 HGB g/dL 14.3 13.8* 13.1* Platelets: Recent Labs Units 01/12/23 1014 07/06/22 1016 03/29/21 1626 PLT K/uL 241 241 235 Lovenox Dose: 80 mg Q12h Electronically sent [facility]ox [id number] [address] [place] [address] and Sentbridging instructions (letter) to [facility] #[id number]- [address] Also placed out front in clinic for patient as well just in case. INR check 2 weeks post procedure on 09/07/2023 Mona Melendez [facility] Clinical Pharmacist Medication Therapy Disease Management 08/11/2023, 9:25 AM documented in this encounter Plan of Treatment Upcoming Encounters Date Type Department Care Team (Late st Contact Info) Description 09/07/2023 9:50 AM EDT Anticoagulation Pharmacy, [place] [address] [place] [address] [facility] [address] [place] [address] 10/18/2023 1:40 PM EDT Office Visit Family Practice [address] [phone] Reinier Thomas DO [address] [place] [address] 12/12/2023 1:40 PM EDT Office Visit Dermatology [address] [phone] Osmin Byrd PA-C [address] [place] [address] Health Maintenance Due Date Last Done Comments [...] this encounter Medical Devices Implanted Type Area Comparative Sociology Professor Device Identifier Shelf Expiration Date Model / Serial / Lot Graft Cervical 6x8 [id number] - [id number] - [id number] Implanted:Qt y: 1 on 03/19/2018 by Ubaldo Johnson MD at OR [facility] Tissue - Human N/A: Spine Cervical LIFENET 08/01/2022 [id number] / [id number] / [id number] Graft Cervical 6x8 Mt1a-Q19 - [id number] - [id number] Implanted:Qt y: 1 on 03/19/2018 by Ubaldo Johnson MD at OR [facility] Tissue - Human N/A: Spine Cervical LIFENET 04/19/2022 [id number] / [id number] / [id number] Plate Cerv 2 Lev 34mm Std - [id number] Implanted:Qt y: 1 on 03/19/2018 by Ubaldo Johnson MD at OR [facility] N/A: Spine Cervical [facility] [id number] / / Description:from set Screw St Efrain Slf Drl 4.0x14mm - [id number] Implanted:Qt y: 3 on 03/19/2018 by Ubaldo Johnson MD at OR [facility] N/A: Spine [facility] [employer] INC [id number] / / Description:from set Screw St Efrain Slf Drl 4.0x16mm - [id number] Implanted:Qt y: 3 on 03/19/2018 by Ubaldo Johnson MD at OR [facility] N/A: Spine Cervical [employer] [id number] / / Description:from set Mesh Perfix Plug Lg 6374579 - [id number] Implanted:Qt y: 1 on 02/15/2019 by Josué Kelley MD at OR [facility] N/A: Groin CR BARD : DAVOL [id number] 03/11/2023 [id number] 70 / / [id number] Lead Kit Trial [id number] 50cm - [id number] - [id number] Implanted:Qt y: 1 on 11/02/2022 by Franklin Olmos DO at OR [facility] N/A: Back [employer] SCIENTIFIC : PAIN MGMT 08/05/2024 [id number] 650E0 / [id number] / [id number] documented as of this encounter Visit Diagnoses Diagnosis CEREBROVASCULAR DZ, POST-STROKE- Primary Cerebral atherosclerosis PFO [...] michelle occurred with: Not Discussed Care Teams Coppersmith Apprentice Relationship Specialty Start Date End Date Reinier Thomas DO [address] [place] [address] PCP - General Internal Medicine 03/17/21 documented as of this encounter"
--- OUTSIDE RECORDS SUMMARY | 2023-08-24 22:22 | External Medical Summary | Summary of Care ---
Author Name Unknown Organization [facility] Address [address] [place] [facility] [place] [address] Phone [phone] Care Team Providers Care Kiln Operator Helper Name Role Phone SoniajmReinierothy Primary Care Provid er Encounter Details Date Type Department Care Team (Late st Contact Info) Description 08/14/2023 Telephone Pharmacy, [facility] [address] [place] [address] Ethan Zamudio, [facility] [address] [place] [address] Allergies Active Allergy Reactions Criticality Noted Date [...] Dyslipidemia, goal LDL below 100 06/02/2010 12/19/2019 roasterman current use of ant icoagulant therapy 11/28/2004 [...] Notes * Telephone Encounter - Mona Melendez [facility] - 08/14/2023 8:30 AM EDT Noted by ACC. No dose change for warfarin. Aware of risks. Mona Melendez, PharmD, BCACP Clinical Pharmacist Medication Therapy Disease Management 08/14/2023, 8:31 AM * Telephone Encounter - Ethan Zamudio [facility] - 08/14/2023 8:17 AM EDT WARFARIN INTERACTION. Please notify service or provider managing Warfarin therapy to adjust the dose of warfarin or the interacting medication appropriately. Active Date User Triggers Comment 08/12/23 0849 Fallon Kelley [facility] [[id number]] Sign Orders CELECOXIB 200 MG OR CAPS [[id number]] WARFARIN SODIUM 6 MG OR TABS [[id number]] Order: Celecoxib 200 MG Oral Capsule (CeleBREX) Order: Warfarin Sodium 6 MG Oral Tablet (Coumadin) Order: Celecoxib 200 MG Oral Capsule (CeleBREX) None documented in this encounter Plan of Treatment Upcoming Encounters Date Type Department Care Team (Late st Contact Info) Description 09/07/2023 9:50 AM EDT Anticoagulation Pharmacy, [place] [address] [place] [address] [facility] [address] [place] [address] 10/18/2023 1:40 PM EDT Office Visit [address] [phone] Reinier Thomas, [address] [place] [address] 12/12/2023 1:40 PM EDT Office Visit Dermatology [facility] [address] [place] [address] Osmin Byrd PA-C [address] [place] [address] Health Maintenance Due Date Last Done Comments [...] this encounter Medical Devices Implanted Type Area Aluminum Pool Installer Device Identifier Shelf Expiration Date Model / Serial / Lot Graft Cervical 6x8 Cd6q-D73 - [id number] - [id number] Implanted:Qt y: 1 on 03/19/2018 by Ubaldo Johnson MD at OR [facility] Tissue - Human N/A: Spine Cervical LIFENET 08/01/2022 [id number] / [id number] / [id number] Graft Cervical 6x8 Uq3t-C56 - [id number] - [id number] Implanted:Qt y: 1 on 03/19/2018 by Ubaldo Johnson MD at OR [facility] Tissue - Human N/A: Spine Cervical LIFENET 04/19/2022 [id number] / [id number] / [id number] Plate Cerv 2 Lev 34mm Std - [id number] Implanted:Qt y: 1 on 03/19/2018 by Ubaldo Johnson MD at OR [facility] N/A: Spine Cervical [employer] [id number] / / Description:from set Screw St Efrain Slf Drl 4.0x14mm - [id number] Implanted:Qt y: 3 on 03/19/2018 by Ubaldo Johnson MD at OR [facility] N/A: Spine Cervical [employer] [id number] / / Description:from set Screw St Efrain Slf Drl 4.0x16mm - [id number] Implanted:Qt y: 3 on 03/19/2018 by Ubaldo Johnson MD at OR [facility] N/A: Spine Cervical [employer] [id number] / / Description:from set Mesh Perfix Plug Lg [id number] - [id number] Implanted:Qt y: 1 on 02/15/2019 by Josué Kelley MD at OR [facility] N/A: Naz CAMACHO BARD : DAVOL [id number] 03/11/2023 [id number] 70 / / [id number] Lead Kit Trial [id number] 50cm - [id number] - [id number] Implanted:Qt y: 1 on 11/02/2022 by Franklin Olmos DO at OR [facility] N/A: Back [employer] SCIENTIFIC : PAIN MGMT 08/05/2024 [id number] 650E0 / [id number] / [id number] documented as of this encounter Advance Directives [...] michelle occurred with: Not Discussed Care Teams Kiln Operator Helper Relationship Specialty Start Date End Date Reinier Thomas DO [place], [place] [phone] PCP - General Internal Medicine 03/17/21 documented as of this encounter
[2023-08-24] MEDS: HYDROmorphone INJ 1 MG/ML SYRINGE IV PRN (23:24)
[2023-08-25] MEDS: LEVOTHYROXINE SODIUM 50 MCG TABLET PO SCH (05:32)
[2023-08-25] MEDS: POLYETHYLENE (MIRALAX) 17 GM PACK PO SCH (05:32)
[2023-08-25 07:30] LABS: Basophils # (auto) 0.02 K/uL (0.00-0.20); Basophils % (auto) 0.1 %; Hematocrit (blood only) 35.2 % (42.0-52.0); Hemoglobin 11.7 g/dl (14.0-18.0); Immature Granulocytes # (auto) 0.09 K/uL (0.01-0.20); Immature Granulocytes % (auto) 0.7 %; Lymphocytes # (auto) 1.41 K/uL (1.20-3.40); Lymphocytes % (auto) 10.2 %; Mean Corpuscular Hemoglobin 30.9 pg (25.0-34.0); Mean Corpuscular Hgb Conc 33.2 g/dL (32.0-36.0); Mean Corpuscular Volume 92.9 fL (80.0-100.0); Mean Platelet Volume 10.3 fL (9.4-12.4); Monocytes # (auto) 1.43 K/uL (0.11-0.59); Monocytes % (auto) 10.3 %; Neutrophils # (auto) 10.89 K/uL (1.40-6.50); Neutrophils % (auto) 78.7 %; Platelet Count 188 K/uL (130-400); RDW Coefficient of Variation 12.9 % (11.5-14.5); RDW Standard Deviation 43.9 fL (36.4-46.3); Red Blood Count 3.79 M/uL (4.70-6.10); White Blood Count 13.84 K/ul (4.8-10.8)
[2023-08-25] MEDS: ATORVASTATIN 40 MG TAB PO SCH (07:33)
[2023-08-25] MEDS: CHOLECALCIFEROL 125 MCG (5,000 UNITS) TAB PO SCH (07:33)
[2023-08-25] MEDS: MULTIVITAMIN TAB PO SCH (07:33)
[2023-08-25] MEDS: dexAMETHasone 6 MG in SYRINGE 0 ML IV SCH (07:34)
[2023-08-25 08:01] LABS: Calcium 9.5 mg/dl (8.6-10.3); Creatinine Clr Calc Pharmacy 105.2 ml/min; Est GFR (African American) 112.5 ml/min; Est GFR (Non-African American) 97.1 ml/min; Potassium 3.8 mmol/L (3.5-5.1)
--- NOTE | 2023-08-25 10:53 | Orthopedic Progress Note ---
Date of Service August 25, 2023 Assessment & Plan (1) Neurogenic claudication due to lumbar spinal stenosis: Plan: Rodrigo is postoperative day 1 status post TLIF L4-5 and spinal cord stim removal. He is doing well. Will start physical therapy. DVT prophylaxis is in the form teds and SCDs. Maintain CARINE drain. Continue with pain control. Anticipate discharge home within the next couple of days Admission and Anticipated Discharge Date Admission Date: August 24, 2023 Subjective Rodrigo is postoperative day 1 status post L4-5 decompression and fusion and spinal cord stim removal. He is doing well. H&H this morning are 11.7 and 35.2 respectively. CARINE drain output last shift was 80 cc. Pain is controlled. Radicular leg pain greatly improved. Review of Systems Review of Systems: All systems reviewed & are unremarkable except as noted in HPI & below Physical Exam Physical Exam: He is sitting in a chair reading in no acute distress Alert and oriented x 3 Lumbar dressing is clean dry intact and functioning CARINE drain Strength is intact bilateral lower extremities Results & Data Vital Signs (Past 12 Hours) Vital Signs Temp Pulse Pulse Resp BP Pulse Ox O2 Del Method 08/25/23 08:03 37.0 C 63 18 105/58 L 97 Room Air 08/25/23 03:41 36.7 C 61 16 104/61 97 Room Air 08/24/23 23:17 36.8 C 64 18 111/60 96 Room Air
--- NOTE | 2023-08-25 11:23 | Hospitalist Progress Note ---
Date of Service August 25, 2023 Assessment & Plan (1) Neurogenic claudication due to lumbar spinal stenosis: (2) Lumbar radiculopathy, chronic: Plan: S/P Lumbar decompression EBL 100cc POD 1 Hb is 11.7 Was 13.9 last month Possible acute blood loss plus dilutional Will monitor Will defer to Surgeon when it's safe to resume anticoagulation Pain control PT/OT (3) History of CVA (cerebrovascular accident): (4) PFO (patent foramen ovale): Plan: Continue atorvastatin Warfarin on hold as above (5) Hypothyroidism: Plan: Continue levothyroxine I spent a total of 40 minutes coordinating, documenting and providing care for this patient excluding time spent in performance of separately billed services Admission and Anticipated Discharge Date Admission Date: August 24, 2023 Subjective Patient seen and examined. Reports surgical site pain. Passing flatus. Yet to have a bowel movement at the time of her evaluation. Denies nausea, vomiting, abdominal pain, chest pain, cough or shortness of shena ath Physical Exam Constitutional: + well hydrated; no acute distress Eyes: PERRL, conjunctivae normal, anicteric sclerae ENMT: external ear and nose normal, oropharynx normal Respiratory: normal respiratory effort, lungs clear to auscultation Cardiovascular: Rate/Rhythm: regular rate and regular rhythm S1 S2 Gastrointestinal (Abdomen): normal bowel sounds, soft, nontender, no hepatosplenomegaly Musculoskeletal: Clean dressing over surgical site with drain in situ Neurologic: PERRL, EOMI, accommodation nl, no face palsy, no dysarthria Psychiatric: A+Ox3, euthymic affect Results & Data Results & Data Vital Signs (Past 12 Hours) Vital Signs Temp Pulse Resp BP Pulse Ox O2 Del Method 08/25/23 08:03 37.0 C 63 18 105/58 L 97 Room Air 08/25/23 03:41 36.7 C 61 16 104/61 97 Room Air Laboratory Results Abnormal lab results 08/25/23 Range/Units 06:36 WBC 13.84 H (4.8-10.8) K/ul RBC 3.79 L (4.70-6.10) M/uL Hgb 11.7 L (14.0-18.0) g/dl Hct 35.2 L (42.0-52.0) % Neut # (Auto) 10.89 H (1.40-6.50) K/uL [place] # (Auto) 1.43 H (0.11-0.59) K/uL Glucose 142 H (70-99(Fasting)) mg/dl
[2023-08-26 06:26] LABS: Hematocrit (blood only) 33.9 % (42.0-52.0); Hemoglobin 11.8 g/dl (14.0-18.0); Mean Corpuscular Hemoglobin 31.5 pg (25.0-34.0); Mean Corpuscular Hgb Conc 34.8 g/dL (32.0-36.0); Mean Corpuscular Volume 90.4 fL (80.0-100.0); Mean Platelet Volume 10.5 fL (9.4-12.4); Platelet Count 188 K/uL (130-400); RDW Coefficient of Variation 13.2 % (11.5-14.5); RDW Standard Deviation 43.2 fL (36.4-46.3); Red Blood Count 3.75 M/uL (4.70-6.10)
[2023-08-26 06:46] LABS: BUN Creatinine Ratio 26.2 (10-20); Calcium 9.5 mg/dl (8.6-10.3); Creatinine Clr Calc Pharmacy 108.6 ml/min; Est GFR (Non-African American) 98.4 ml/min; Potassium 4.1 mmol/L (3.5-5.1)
--- NOTE | 2023-08-26 08:28 | Orthopedic Progress Note ---
Date of Service August 26, 2023 Assessment & Plan (1) Neurogenic claudication due to lumbar spinal stenosis: Plan: Patient stable postop day #2. We will continue with ambulation and gait training through physical therapy. Continue with GI DVT prophylaxis as well as pain control. All goes well he will likely be discharged home tomorrow. Admission and Anticipated Discharge Date Admission Date: August 24, 2023 Subjective Patient was seen bedside in room 387 bed #2. He states he is doing okay today. He did have a rough night with difficulties with pain control. Has been having difficulties moving in bed. He has not had any problems with the incision. He denies any other numbness, tingling, or paresthesias. Physical Exam Physical Exam: On exam his dressing is clean dry and intact. His abdomen soft and nontender his calves are supple nontender. His strength and sensation are both intact his gait is stable. His cardiovascular exam reveals no gross abnormalities. Results & Data Vital Signs (Past 12 Hours) Vital Signs Temp Pulse Resp BP Pulse Ox O2 Del Method 08/26/23 07:03 36.8 C 64 16 119/73 97 Room Air 08/25/23 22:08 Room Air
--- NOTE | 2023-08-26 12:37 | Hospitalist Progress Note ---
Date of Service August 26, 2023 Assessment & Plan (1) Neurogenic claudication due to lumbar spinal stenosis: (2) Lumbar radiculopathy, chronic: Plan: S/P Lumbar decompression EBL 100cc POD 2 Hb is 11.8 today Was 13.9 last month Possible acute blood loss plus dilutional Hb is stable at 11 Optimize pain control Defer activity to Surgeon Continue PT/OT (3) History of CVA (cerebrovascular accident): (4) PFO (patent foramen ovale): Plan: Continue atorvastatin Warfarin on hold prior to surgery Discussed with Dr Dietz today about resuming anticoagulation. Plan is to resume anticoagulation tomorrow Patient's [facility] clinic had recommended lovenox-warfarin bridge. Will start this tomorrow AM Check PT/INR in AM (5) Hypothyroidism: Plan: Continue levothyroxine I spent a total of 45 minutes coordinating, documenting and providing care for this patient excluding time spent in performance of separately billed services Admission and Anticipated Discharge Date Admission Date: August 24, 2023 Subjective Patient seen and examined Reports poor sleep due to poor pain control overnight Denied any other complaints Physical Exam Constitutional: + well hydrated; no acute distress Eyes: PERRL, conjunctivae normal, anicteric sclerae ENMT: external ear and nose normal, oropharynx normal Respiratory: normal respiratory effort, lungs clear to auscultation Cardiovascular: Rate/Rhythm: regular rate and regular rhythm S1 S2 Gastrointestinal (Abdomen): normal bowel sounds, soft, nontender, no hepatosplenomegaly Musculoskeletal: Clean dressing over surgical site with drain in situ Neurologic: PERRL, EOMI, accommodation nl, no face palsy, no dysarthria Psychiatric: A+Ox3, euthymic affect Results & Data Results & Data Vital Signs (Past 12 Hours) Vital Signs Temp Pulse Resp BP Pulse Ox O2 Del Method 08/26/23 07:03 36.8 C 64 16 119/73 97 Room Air Laboratory Results Abnormal lab results 08/24/23 08/26/23 Range/Units 09:07 05:59 WBC 11.90 H (4.8-10.8) K/ul RBC 3.75 L (4.70-6.10) M/uL Hgb 11.8 L (14.0-18.0) g/dl Hct 33.9 L (42.0-52.0) % BUN/Creatinine Ratio 26.2 H (10-20) Glucose 115 H (70-99(Fasting)) mg/dl Crossmatch See Detail
[2023-08-26] MEDS: traMADol HCL 50 MG TABLET PO PRN (15:24)
[2023-08-26] MEDS: MAGNESIUM HYDROXIDE SUSP 30 ML UDC PO PRN (17:18)
[2023-08-27 06:39] LABS: Hematocrit (blood only) 37.2 % (42.0-52.0); Hemoglobin 12.3 g/dl (14.0-18.0); Mean Corpuscular Hemoglobin 30.5 pg (25.0-34.0); Mean Corpuscular Hgb Conc 33.1 g/dL (32.0-36.0); Mean Corpuscular Volume 92.3 fL (80.0-100.0); Mean Platelet Volume 10.5 fL (9.4-12.4); Platelet Count 194 K/uL (130-400); RDW Coefficient of Variation 12.8 % (11.5-14.5); RDW Standard Deviation 43.6 fL (36.4-46.3); Red Blood Count 4.03 M/uL (4.70-6.10); White Blood Count 11.22 K/ul (4.8-10.8)
[2023-08-27 07:00] LABS: BUN Creatinine Ratio 36.8 (10-20); Calcium 9.7 mg/dl (8.6-10.3); Creatinine Clr Calc Pharmacy 116.3 ml/min; Est GFR (African American) 117.2 ml/min; Est GFR (Non-African American) 101.2 ml/min; INR 0.9 (0.9-1.1); Prothrombin Time 10.2 Seconds (9.0-12.0)
[2023-08-27] MEDS: ENOXAPARIN 80 MG/0.8 ML SYR SQ SCH (10:44)
--- NOTE | 2023-08-27 10:52 | Discharge Summary ---
Date of Service August 27, 2023 Admission HPI Per Admitting Provider This is a 72-year-old male presents with chronic persistent back and leg pain after failing course of nonoperative care is here for surgical invention. Principal Diagnosis Lumbar spinal stenosis with neurogenic claudication Discharge Data Allergies Allergy/AdvReac Type Severity Reaction Status Date / Time niacin Allergy Severe Facial Verified 08/24/23 09:01 swelling Consultations 08/24/23 15:27 Consult Hospitalist Routine Procedures Performed Operation Date: 08/24/23 09:55 Actual Procedures p L4-L5 Decompression and Fusion, Spinal Cord Monitoring(Not Applicable) - Renny Dietz DO s Spinal Cord Stimulator Removal(Not Applicable) - Renny Dietz DO Ordered Studies 08/24/23 09:55 [place] lumbar spine 2-3V Routine Hospital Course (1) Neurogenic claudication due to lumbar spinal stenosis: Patient underwent lumbar decompression fusion tolerated this well taken to the orthopedic floor postoperatively. Postoperatively progressed appropriately. Leg symptoms markedly improved. Excellent strength testing. CARINE drain decreasing. Pain well-controlled. Subsidy discharged home. Discharge orders instructions found in chart for further review. Total Time Total Time Spent Total Time Spent (In Minutes): 20 minutes Discharge Plan Discharge Items Patient Disposition: Home - Self-Care Reason For Visit: Lumbar Spine Pain, Spinal Stenosis Lumbar, Discharge Diagnosis: Lumbar spinal stenosis with radiculopathy Activity: As commented below Non-emergency contact: Primary Care Provider Call non-emergency contact if: you have any medication questions Follow-up/Referrals: Reinier Thomas MD [Primary Care Provider] - Diet: Regular Addtl Attending Provider Instructions: ACTIVITY RECOMMENDATIONS: SELF CARE INSTRUCTIONS AFTER THORACIC/LUMBAR FUSIONS 1. You may walk to your tolerance. It is good exercise for your legs and back. Expect some back and intermittent leg aches and pains. 2. You may perform "counter-top" level activities (make a sandwich, josselyn with a project, etc.). 3. No bending or lifting of more than 10 pounds or back twisting of any nature (roll like a log when turning in bed). 4. You may ride in a car for 20-30 minutes at a time. No driving until after your first visit with your doctor. 5. Frequent changes of position and restricting sitting to 30 minutes at a time will help limit the amount of back spasms and stiffness you may experience. 6. You may discontinue the use of ambulatory aids (cane, crutches, etc.) once your strength and confidence allow. 7. You may technical marketing engineer the shower and let water strike your incision when you arrive home at least once daily. Do not take a tub bath, sit in a hot tub or go into a swimming pool until after your first recheck in the office. SPECIAL CARE INSTRUCTIONS: VERY IMPORTANT TO READ AND REVIEW A. Your surgical incision has been closed with a cosmetic suture under the skin that will dissolve in about 6 weeks. In 14 days, you can use a pair of clean scissors and cut the suture that is left outside of the skin at the ends of your incision. 1. The small skin tapes can be removed 7 days after surgery if they have not fallen off by that point. 2. You may keep the wound open to air as much as possible to promote healing after post-op day number 5 unless told otherwise by your doctor. 3. If you think the wound looks like it is becoming infected (redness or worsening drainage) and/or you are experiencing fever, chill or worsening back pain and muscle spasms, contact the office so that we may evaluate you as soon as possible. B. Complications are uncommon, but please contact us if you have any signs or symptoms of: 1. wound infection (fever higher than 102.5 degrees F, redness, separation of wound, drainage, or increasing pain from the incision) 2. blood clots in legs (pain, swelling, redness and warmth in legs) 3. urinary tract infection (fever higher than 102.5 degrees F, burning upon urination or increased frequency of urination) 4. nerve problems (inability to walk on your toes or heels, numbness, loss of bowel or bladder control) 5. any other symptoms that concern you C. Please call the office at if you have any concerns or questions about your operation or recovery. D. No smoking! Smoking drastically decreases the chance of a solid fusion. E. Do not take any anti-inflammatory medications (Indocin, Advil, Motrin, Aspirin, Naprosyn, etc.) as these may inhibit the chance of a solid fusion. Tylenol is okay to take for pain. MANAGING PAIN AFTER SPINAL SURGERY 1. Narcotic medication is intended for short-term use and will be provided for surgical pain. Surgical pain usually lasts for a period of 4-6 weeks. Narcotic medication includes Percocet, Vicodin, Darvocet, Tylenol #3 or Lortab. 2. Longer-term pain is more appropriately treated with non-narcotic medication such as Tylenol ES. 3. Muscle spasm is not appropriately treated with narcotics. Muscle relaxers such as Soma, Flexeril or Skelaxin can be used along with Tylenol ES. 4. Remember that we all live with some "aches and pains". This is not unusual or uncommon after an injury or as we get older. a. Back pain is expected and may include muscle spasms for 4 to 6 weeks after surgery. The pain should gradually improve. If the pain worsens for no apparent reason, please contact the office. b. Intermittent leg pain may also be experienced and should not be concerned about unless it worsens for no apparent reason. If so, please contact the office. 5. We will provide appropriate medication within the normal guidelines of their prescribed use. We will also be very cautious and aware of potential abuse and extended duration of patients' medication needs. a. Pain medications are for your comfort and to assist with sleep and rest so that the tissue can heal. They are not provided in order to return to normal activity and should not be used through the day. To do so or worsening pain at night can result from ongoing tissue damage and development of tolerance to the prescribed medicine. 6. Please allow 2-3 days to process refills. Prescriptions will not be mailed but must be picked up at the office. FOLLOW UP VISIT: Keep your scheduled follow-up appointment. Any questions, please call the office at . Pending Studies at Discharge: No Stand-Alone Forms: [facility], Smoking Cessation Medications and DC Order Prescriptions: New oxycodone 5 mg tablet 5 mg PO Q6H PRN (Reason: pain) Qty: 30 0RF Continued multivitamin Tablet 1 tab PO QAM celecoxib [Celebrex] 200 mg Capsule 200 mg PO QAM warfarin 6 mg Tablet 6 mg PO QAM Hold Instructions: Resume on 12/08/22. Patient Comments: 6mg daily and 3 mg on Mondays Rx Instructions: CO[facility] CLINIC CHECKS atorvastatin [Lipitor] 80 mg Tablet 80 mg PO QAM levothyroxine 50 mcg Tablet 50 mcg PO QAM cyanocobalamin (vitamin B-12) [Vitamin B-12] 500 mcg Tablet 500 mcg PO BID enoxaparin 80 mg/0.8 mL syringe 70 mg subcut BID Hold Instructions: Resume on 12/08/22. oxycodone 15 mg Tablet 15 mg PO Q4H PRN (Reason: Pain) cholecalciferol (vitamin D3) [Vitamin D3] 125 mcg (5,000 unit) Tablet 125 mcg PO QAM Patient Comments: patient has not started yet Discharge Orders: Discharge Order (Routine); Ordered 08/27/23 Ordered By: Renny Dietz Admission Data Admit Date/Time: 08/24/23 12:47 Attending Provider: Renny Dietz Admit Provider: Renny Dietz Primary Care Provider: Reinier Thomas Other Providers: Kenna Portillo
[2023-08-27] MEDS: FAMOTIDINE 20 MG TAB PO PRN (13:30)
--- NOTE | 2023-08-27 13:51 | Hospitalist Progress Note ---
Date of Service August 27, 2023 Assessment & Plan (1) Neurogenic claudication due to lumbar spinal stenosis: (2) Lumbar radiculopathy, chronic: Plan: S/P Lumbar decompression EBL 100cc POD 3 Hb is 11.2 today Was 13.9 last month Possible acute blood loss plus dilutional Hb is stable in the 11s post op Pain controlled PT/OT eval noted (3) History of CVA (cerebrovascular accident): (4) PFO (patent foramen ovale): Plan: Continue atorvastatin INR today is 0.9 Started on lovenox - warfarin bridge today Educated patient and on this To follow instructions about bridging that had been provided by his Anticoagulation clinic which had a picture of (5) Hypothyroidism: Plan: Continue levothyroxine Medically stable for discharge I spent a total of 45 minutes coordinating, documenting and providing care for this patient excluding time spent in performance of separately billed services Admission and Anticipated Discharge Date Admission Date: August 24, 2023 Subjective Patient seen and examined Reports pain is well controlled No new complaints Physical Exam Constitutional: + well hydrated; no acute distress Eyes: PERRL, conjunctivae normal, anicteric sclerae ENMT: external ear and nose normal, oropharynx normal Respiratory: normal respiratory effort, lungs clear to auscultation Cardiovascular: Rate/Rhythm: regular rate and regular rhythm S1 S2 Gastrointestinal (Abdomen): normal bowel sounds, soft, nontender, no hepatosplenomegaly Musculoskeletal: Clean dressing over lower back surgical site Neurologic: PERRL, EOMI, accommodation nl, no face palsy, no dysarthria Psychiatric: A+Ox3, euthymic affect Results & Data Results & Data Vital Signs (Past 12 Hours) Vital Signs Temp Pulse Pulse Resp BP BP Pulse Ox 08/27/23 13:38 37.1 C 64 57 L 16 107/62 105/57 L 95 08/27/23 09:20 08/27/23 07:09 37.1 C 57 L 16 107/62 95 O2 Del Method 08/27/23 13:38 08/27/23 09:20 Room Air 08/27/23 07:09 Room Air Laboratory Results Abnormal lab results 08/27/23 Range/Units 06:02 WBC 11.22 H (4.8-10.8) K/ul RBC 4.03 L (4.70-6.10) M/uL Hgb 12.3 L (14.0-18.0) g/dl Hct 37.2 L (42.0-52.0) % Creatinine 0.57 L (0.6-1.4) mg/dl BUN/Creatinine Ratio 36.8 H (10-20) Glucose 110 H (70-99(Fasting)) mg/dl
[2023-08-27] MEDS ORDERED: WARFARIN SOD 6 MG TAB PO SCH (16:00)
== END 2023-08-27 14:10 | disposition home or self-care (01) | DRG 454 ==
LOC: ASU 08:37 → 3N 12:47